=== PATIENT | female | born 1985 | race Caucasian/White ===

== ENCOUNTER 2021-08-26 13:36 | Inpatient (IN) ==
[2021-08-26] MEDS ORDERED: HYDROmorphone INJ 1 MG/ML SYRINGE IV STA (17:08)
[2021-08-26] MEDS ORDERED: ONDANSETRON INJ 2 MG/ML 2 ML VIAL IV STA (17:08)
--- NOTE | 2021-08-26 17:13 | Emergency Department Note ---
History of Present Illness General Chief Complaint: Back Injury/Pain Stated Complaint: LOW BACK,LEG WEAKNESS,NUMBNESS PAIN Time Seen by Provider: 08/26/21 17:00 History of Present Illness Provider Complaint: back pain Onset (ago): month(s) 3 Duration: progressively worsening Similar Symptoms Previously: No Location: lumbar spine Quality: + sharp Radiation: right leg Severity: severe Maximum Pain Intensity: 9 Current Pain Intensity: 9 Relieved By: + immobilization Exacerbated By: + movement Context: no trauma or no IV drug use Associated symptoms: + numbness, + increased urinary urgency, + increased urinary frequency, + a change in bowel habits and + parasthesias (Saddle) Patient is known to Dr. Fitzgerald who instructed her to come to the emergency department. Home Medications Medication Instructions Recorded Confirmed Type diphenhydramine HCl 25 mg tablet 25 mg PO Q6H PRN 03/01/20 08/26/21 History (Benadryl Allergy) lisdexamfetamine 70 mg capsule 70 mg PO DAILY 03/01/20 08/26/21 History (Vyvanse) lorazepam 0.5 mg tablet 0.5 mg PO Q6H PRN 03/01/20 08/26/21 History venlafaxine 150 mg 150 mg PO DAILY 03/01/20 08/26/21 History capsule,extended release 24 hr atenolol 25 mg tablet 25 mg PO DAILY 08/26/21 08/26/21 History cholecalciferol (vitamin D3) 125 125 mcg PO DAILY 08/26/21 08/26/21 History mcg (5,000 unit) tablet (Vitamin D3) cyanocobalamin (vitamin B-12) 1,000 mcg PO DAILY 08/26/21 08/26/21 History 1,000 mcg tablet (Vitamin B-12) epinephrine 0.3 mg/0.3 mL 0.3 mg IM Q4H PRN 08/26/21 08/26/21 History injection, auto-injector fluticasone propionate 50 2 spray INTRANASAL DAILY 08/26/21 08/26/21 History mcg/actuation nasal spray,suspension hydrochlorothiazide 12.5 mg capsule 12.5 mg PO DAILY 08/26/21 08/26/21 History losartan 50 mg tablet 50 mg PO BID 08/26/21 08/26/21 History meloxicam 15 mg tablet 15 mg PO DAILY 08/26/21 08/26/21 History multivitamin 1 tab PO DAILY 08/26/21 08/26/21 History norethindrone (contraceptive) 0.35 0.35 mg PO DAILY 08/26/21 08/26/21 History mg tablet thiamine HCl (vitamin B1) 50 mg 50 mg PO DAILY 08/26/21 08/26/21 History tablet (Vitamin B-1) venlafaxine 75 mg capsule,extended 75 mg PO DAILY 08/26/21 08/26/21 History release 24 hr Allergies Allergy/AdvReac Type Severity Reaction Status Date / Time bee venom protein (honey bee) Allergy Anaphylaxis Verified 08/26/21 18:13 latex Allergy Hives Verified 08/26/21 18:13 Past Med/Surg History Medical History Migraines No pertinent family history Surgical History No pertinent past surgical history Social History Smoking Status: Never smoker Preferred Language: Belarusian Feels Safe at Home: Yes Review of Systems A total of 10 systems reviewed and were otherwise negative Physical Exam Vital Signs Vital Signs - 24 hr 08/26/21 14:07 08/26/21 17:38 08/26/21 19:47 Temperature 36.4 C L Temperature Source Temporal Artery Scan Pulse Rate 109 H Pulse Rate [Right Finger] 82 83 Pulse Rhythm [Right Finger] Regular Regular Pulse Strength [Right Finger] Normal Normal Respiratory Rate 20 18 16 Respiratory Effort / Characteristics Non-Labored Spontaneous Non-Labored Non-Labored Respiratory Depth Normal Normal Normal Respiratory Pattern Regular Regular Regular Blood Pressure 145/84 H Blood Pressure [Right Arm] 133/76 144/80 H Blood Pressure Mean 104 Blood Pressure Mean [Right Arm] 95 101 Blood Pressure Position [Right Arm] Lying Lying Pulse Oximetry 98 99 99 Oxygen Delivery Method Room Air Room Air Room Air Sepsis Recent Fever Within 48 Hours No Sepsis New/Unexplained Change in Mental Status No Sepsis Action Taken by Nursing No Action Required Physical Exam GENERAL: She is oriented to person, place, and time. She appears well-developed and well-nourished. She does not appear distressed. HENT: Exam performed. -Head: Normocephalic and atraumatic. -Right Ear: External ear normal. No mastoid tenderness. -Left Ear: External ear normal. No mastoid tenderness. -Mouth/Throat: The oropharynx is clear and moist. No trismus in the jaw. No dental abscesses or uvula swelling. No oropharyngeal exudate or tonsillar abscesses. EYES: Conjunctivae and EOM are normal. Pupils are equal, round, and reactive to light. Right eye exhibits no discharge. Left eye exhibits no discharge. No scleral icterus. NECK: Normal range of motion. Neck supple. No JVD present. No spinous process tenderness present. No carotid bruit present. No rigidity. No tracheal deviation and normal range of motion present. No Brudzinski's sign and no Kernig's sign noted. CV: Normal rate, regular rhythm, normal heart sounds and intact distal pulses. There is no peripheral edema. Palpable radial pulses bue. PULM/CHEST: Effort normal and breath sounds normal. No respiratory distress. No stridor. She has no wheezes. She has no rales. -Chest Wall: She exhibits no tenderness. ABD: The abdomen is soft and obese Bowel sounds are normal. She has no distension. No mass is present. There is no tenderness. There is no rebound, no guarding, no Todd's sign and no tenderness at McBurney's point. Rovsig negative MUSC/SKEL: No pain on palpation of the C or T-spine. Pain on palpation L-spine. NEURO: She is alert and oriented to person, place, and time. She has normal strength. No cranial nerve deficit or sensory deficit. Coordination and gait normal. GCS eye subscore is 4. GCS verbal subscore is 5. GCS motor subscore is 6. Cerebellar tests wnl. Saddle anesthesias/paresthesias present. SKIN: Skin is warm and dry. She is not diaphoretic. PSYCH: She has a normal mood and affect. Behavior is normal. Judgment and thought content normal. Course Course 1700: The patient was evaluated in room B5. A complete history and physical exam was performed Cardiac monitoring: An order was placed for continuous cardiac monitoring. The monitor shows a rate of 100 with sinus rhythm 1743: Vital signs stable. Discussed the case with Dr. Fitzgerald, [id number], patient's known surgeon. He states he agrees with the work-up initiated and with the MRI. He states either way the patient will most likely need to be admitted and he will admit the patient to his service. Dr. Fitzgerald states he will review the MRI after the images are completed and he states to admit the patient under his service. Patient is in agreement at this time. Administered Medications Sodium Chloride (Nss 1000ml) 1,000 mls @ 80 mls/hr IV .[id number] CARL Stop: 09/25/21 17:14 Last Admin: 08/26/21 17:41 Dose: 80 mls/hr Documented by: [id number] Discontinued Medications Hydromorphone HCl (Hydromorphone Inj 1 Mg/Ml Syringe) 1 mg IV NOW STA Stop: 08/26/21 17:09 Last Admin: 08/26/21 17:42 Dose: 1 mg Documented by: [id number] Hydromorphone HCl (Hydromorphone Inj 0.5 Mg/0.5 Ml Syr) 0.5 mg IV NOW STA Stop: 08/26/21 20:22 Last Admin: 08/26/21 20:27 Dose: 0.5 mg Documented by: [id number] Ondansetron HCl (Ondansetron Inj 2 Mg/Ml 2 Ml Vial) 4 mg IV NOW STA Stop: 08/26/21 17:09 Last Admin: 08/26/21 17:40 Dose: 4 mg Documented by: [id number] Medical Decision Making Laboratory Data Result diagrams: 08/26/21 17:39 08/26/21 17:39 Lab Results 08/26/21 08/26/21 08/26/21 Range/Units 17:39 17:39 17:39 WBC 14.55 H (4.8-10.8) K/uL RBC 4.57 (4.2-5.4) M/uL Hgb 14.0 (12.0-16.0) g/dL Hct 42.1 (37-47) % MCV 92.1 (80-100) fL MCH 30.6 (25-34) pg MCHC 33.3 (32-36) g/dL RDW Std Deviation 43.6 (36.4-46.3) fL RDW Coeff of Clint 13.0 (11.5-14.5) % Plt Count 304 (130-400) K/uL MPV 11.0 H (7.4-10.4) fL Immature Gran % (Auto) 0.5 % Neut % (Auto) 69.3 % Lymph % (Auto) 20.1 % Treasure % (Auto) 7.7 % Eos % (Auto) 2.1 % Baso % (Auto) 0.3 % Neut # (Auto) 10.10 H (1.4-6.5) K/uL Lymph # (Auto) 2.92 (1.2-3.4) K/uL Treasure # (Auto) 1.12 H (0.11-0.59) K/uL Eos # (Auto) 0.30 (0-0.5) K/uL Baso # (Auto) 0.04 (0-0.2) K/uL Immature Gran # (Auto) 0.07 H (0.00-0.02) K/uL Sodium 141 (136-145) mmol/L Potassium 3.6 (3.5-5.1) mmol/L Chloride 109 H (98-107) mmol/L Carbon Dioxide 24 (21-32) mmol/L Anion Gap 8.0 (3-11) BUN 20 H (7-18) mg/dl Creatinine 0.70 (0.6-1.2) mg/dl Est Cr Clr Drug Dosing 170.3 ml/min Est GFR ( Amer) 131.0 ml/min Est GFR (Non-Af Amer) 113.0 ml/min BUN/Creatinine Ratio 29.4 H (10-20) Glucose 75 (70-99) mg/dl Calcium 8.9 (8.5-10.1) mg/dl Urine Color Dark Yellow Urine Appearance Clear (Clear) Urine pH 5.5 (4.5-7.5) Ur Specific Orgas 1.026 (1.000-1.030) Urine Protein Negative (Negative) Urine Glucose (UA) Negative (Negative) Urine Ketones Trace H (Negative) Urine Blood Trace H (Negative) Urine Nitrite Negative (Negative) Urine Bilirubin Negative (Negative) Urine Urobilinogen Negative (Negative) Ur Leukocyte Esterase Negative (Negative) Urine WBC (Auto) 1-5 (0-5) /hpf Urine RBC (Auto) 5-10 H (0-4) /hpf U Hyaline Cast (Auto) 1-5 (0-5) /lpf U Epithel Cells (Auto) >30 H (0-5) /lpf Urine Bacteria (Auto) Negative (Negative) POC Ur Test (NEG) SARS-CoV-2, RNA, NAAT (NEGATIVE) 08/26/21 08/26/21 Range/Units 17:39 Unknown WBC (4.8-10.8) K/uL RBC (4.2-5.4) M/uL Hgb (12.0-16.0) g/dL Hct (37-47) % MCV (80-100) fL MCH (25-34) pg MCHC (32-36) g/dL RDW Std Deviation (36.4-46.3) fL RDW Coeff of Clint (11.5-14.5) % Plt Count (130-400) K/uL MPV (7.4-10.4) fL Immature Gran % (Auto) % Neut % (Auto) % Lymph % (Auto) % Treasure % (Auto) % Eos % (Auto) % Baso % (Auto) % Neut # (Auto) (1.4-6.5) K/uL Lymph # (Auto) (1.2-3.4) K/uL Treasure # (Auto) (0.11-0.59) K/uL Eos # (Auto) (0-0.5) K/uL Baso # (Auto) (0-0.2) K/uL Immature Gran # (Auto) (0.00-0.02) K/uL Sodium (136-145) mmol/L Potassium (3.5-5.1) mmol/L Chloride (98-107) mmol/L Carbon Dioxide (21-32) mmol/L Anion Gap (3-11) BUN (7-18) mg/dl Creatinine (0.6-1.2) mg/dl Est Cr Clr Drug Dosing ml/min Est GFR ( Amer) ml/min Est GFR (Non-Af Amer) ml/min BUN/Creatinine Ratio (10-20) Glucose (70-99) mg/dl Calcium (8.5-10.1) mg/dl Urine Color Urine Appearance (Clear) Urine pH (4.5-7.5) Ur Specific Orgas (1.000-1.030) Urine Protein (Negative) Urine Glucose (UA) (Negative) Urine Ketones (Negative) Urine Blood (Negative) Urine Nitrite (Negative) Urine Bilirubin (Negative) Urine Urobilinogen (Negative) Ur Leukocyte Esterase (Negative) Urine WBC (Auto) (0-5) /hpf Urine RBC (Auto) (0-4) /hpf U Hyaline Cast (Auto) (0-5) /lpf U Epithel Cells (Auto) (0-5) /lpf Urine Bacteria (Auto) (Negative) POC Ur Test NEG (NEG) SARS-CoV-2, RNA, NAAT NEGATIVE (NEGATIVE) Imaging Data Radiologist's Impression: Lumbar Spine MRI 08/26/21 17:08 MRI OF THE LUMBAR SPINE WITHOUT IV CONTRAST CLINICAL HISTORY: Low back pain. Saddle anesthesia. COMPARISON STUDY: No priors. TECHNIQUE: MRI of the lumbar spine is performed utilizing various T1 and T2- weighted sequences in the axial and sagittal planes. IV contrast was not adm inistered for this examination. FINDINGS: Lumbar spine: Vertebral body height and alignment are maintained throughout the lumbar spine. Normal marrow signal intensity is preserved throughout the v isualized bony structures. The transverse and spinous processes appear intact. There is no evidence of spondylolysis. No destructive bony lesion is seen. Intervertebral discs: There is mild degenerative disc desiccation in the lower lumbar spine. The disc spaces are maintained. Spinal cord: The visualized spinal cord is normal in morphology and signal intensity. The conus medullaris terminates at the L1-L2 interspace. The nerve roots of the cauda equina are normal in morphology. L1-L2: Unremarkable. L2-L3: Unremarkable. L3-L4: Unremarkable. L4-L5: Unremarkable. L5-S1: There is a posterior disc protrusion with annular fissure. This abuts the transiting nerve roots. No significant acquired compromise of the central canal is identified. There is minimal bilateral subarticular stenosis. In conjunction with facet arthropathy, there is minimal bilateral neural foraminal narrowing. Sacrum: The visualized sacrum is normal in morphology and signal intensity. Soft tissues: The paraspinous soft tissues are normal in appearance. The visualized retroperitoneal structures are grossly unremarkable but incompletely evaluated. IMPRESSION: 1. Posterior disc protrusion at L5-S1 as above. 2. There is no significant acquired compromise of the central canal. 3. No destructive bony process is identified. Dictated: 08/26/2021 7:46 PM Transcribed: 08/26/2021 8:05 PM Jennifer [id number] [email or web address] Electronically signed by: Johnathan Kaur M.D. 08/26/2021 8:11 PM MDM Narrative 1700: The patient was evaluated in room B5. A complete history and physical exam was performed Cardiac monitoring: An order was placed for continuous cardiac monitoring. The monitor shows a rate of 100 with sinus rhythm 1743: Vital signs stable. Discussed the case with Dr. Fitzgerald, [id number], patient's known surgeon. He states he agrees with the work-up initiated and with the MRI. He states either way the patient will most likely need to be admitted and he will admit the patient to his service. Dr. Fitzgerald states he will review the MRI after the images are completed and he states to admit the patient under his service. Patient is in agreement at this time. Impression & Plan Lumbar radiculopathy Discharge Plan Visit Data Chief Complaint: Back Injury/Pain Stated Complaint: LOW BACK,LEG WEAKNESS,NUMBNESS PAIN ED Provider: Sathish Whitlock Discharge Problem: Lumbar radiculopathy Patient Disposition: Being Evaluated by Surgeon Forms Stand Alone Forms: [facility] Prescriptions Prescriptions: No Action venlafaxine 150 mg capsule,extended release 24hr 150 mg PO DAILY RF: 0 lorazepam 0.5 mg tablet 0.5 mg PO Q6H PRN (Reason: Anxiety) RF: 0 diphenhydramine HCl [Benadryl Allergy] 25 mg Tablet 25 mg PO Q6H PRN (Reason: Allergy Symptoms) RF: 0 Vyvanse 70 mg capsule 70 mg PO DAILY RF: 0 multivitamin Tablet 1 tab PO DAILY RF: 0 losartan 50 mg tablet 50 mg PO BID RF: 0 venlafaxine 75 mg capsule,extended release 24hr 75 mg PO DAILY RF: 0 meloxicam 15 mg tablet 15 mg PO DAILY RF: 0 atenolol 25 mg tablet 25 mg PO DAILY RF: 0 cyanocobalamin (vitamin B-12) [Vitamin B-12] 1,000 mcg Tablet 1,000 mcg PO DAILY RF: 0 hydrochlorothiazide 12.5 mg capsule 12.5 mg PO DAILY RF: 0 epinephrine [Epi E-Z Pen] 0.3 mg/0.3 mL Auto-Injector 0.3 mg IM Q4H PRN (Reason: Allergic Reaction) RF: 0 norethindrone (contraceptive) 0.35 mg tablet 0.35 mg PO DAILY RF: 0 fluticasone propionate 50 mcg/actuation spray,suspension 2 spray INTRANASAL DAILY RF: 0 thiamine HCl (vitamin B1) [Vitamin B-1] 50 mg Tablet 50 mg PO DAILY RF: 0 cholecalciferol (vitamin D3) [Vitamin D3] 125 mcg (5,000 unit) Tablet 125 mcg PO DAILY RF: 0 Referrals Referrals: Luis Kan MD [Primary Care Provider] -
[2021-08-26] MEDS ORDERED: SODIUM CHLORIDE 0.9% 1000ML 1,000 ML IV SCH (17:15)
[2021-08-26 17:58] LABS: Basophils # (auto) 0.04 K/uL (0-0.2); Basophils % (auto) 0.3 %; Eosinophils % (auto) 2.1 %; Hematocrit (blood only) 42.1 % (37-47); Immature Granulocytes # (auto) 0.07 K/uL (0.00-0.02); Immature Granulocytes % (auto) 0.5 %; Lymphocytes # (auto) 2.92 K/uL (1.2-3.4); Lymphocytes % (auto) 20.1 %; Mean Corpuscular Hemoglobin 30.6 pg (25-34); Mean Corpuscular Hgb Conc 33.3 g/dL (32-36); Mean Corpuscular Volume 92.1 fL (80-100); Monocytes # (auto) 1.12 K/uL (0.11-0.59); Monocytes % (auto) 7.7 %; Neutrophils % (auto) 69.3 %; Platelet Count 304 K/uL (130-400); RDW Standard Deviation 43.6 fL (36.4-46.3); Red Blood Count 4.57 M/uL (4.2-5.4); White Blood Count 14.55 K/uL (4.8-10.8)
[2021-08-26 18:10] LABS: Appearance Urine Clear (Clear); Bacteria Urine Automated Negative (Negative); Bilirubin Urine Negative (Negative); Blood Urine Trace (Negative); Color Urine Dark Yellow; Epithelial Cell Urine Auto >30 /lpf (0-5); Glucose Urine UA Negative (Negative); Ketones Urine Trace (Negative); Leukocyte Esterase Urine Negative (Negative); Nitrite Urine Negative (Negative); Protein Urine Negative (Negative); Specific Gravity Urine 1.026 (1.000-1.030); Urobilinogen Urine Negative (Negative); pH Urine 5.5 (4.5-7.5)
[2021-08-26 18:13] LABS: BUN Creatinine Ratio 29.4 (10-20); Calcium 8.9 mg/dl (8.5-10.1); Creatinine Clr Calc Pharmacy 170.3 ml/min; Potassium 3.6 mmol/L (3.5-5.1)
--- NOTE | 2021-08-26 20:13 | Magnetic Resonance Report ---
MRI OF THE LUMBAR SPINE WITHOUT IV CONTRAST CLINICAL HISTORY: Low back pain. Saddle anesthesia. COMPARISON STUDY: No priors. TECHNIQUE: MRI of the lumbar spine is performed utilizing various T1 and T2-weighted sequences in the axial and sagittal planes. IV contrast was not administered for this examination. FINDINGS: Lumbar spine: Vertebral body height and alignment are maintained throughout the lumbar spine. Normal marrow signal intensity is preserved throughout the visualized bony structures. The transverse and sp inous processes appear intact. There is no evidence of spondylolysis. No destructive bony lesion is s een. Intervertebral discs: There is mild degenerative disc desiccation in the lower lumbar spine. The disc spaces are maintained. Spinal cord: The visualized spinal cord is normal in morphology and signal intensity. The conus medul aurora terminates at the L1-L2 interspace. The nerve roots of the cauda equina are normal in morpholog y. L1-L2: Unremarkable. L2-L3: Unremarkable. L3-L4: Unremarkable. L4-L5: Unremarkable. L5-S1: There is a posterior disc protrusion with annular fissure. This abuts the transiting nerve fanny ts. No significant acquired compromise of the central canal is identified. There is minimal bilateral subarticular stenosis. In conjunction with facet arthropathy, there is minimal bilateral neural fora suzie narrowing. Sacrum: The visualized sacrum is normal in morphology and signal intensity. Soft tissues: The paraspinous soft tissues are normal in appearance. The visualized retroperitoneal s tructures are grossly unremarkable but incompletely evaluated. IMPRESSION: 1. Posterior disc protrusion at L5-S1 as above. 2. There is no significant acquired compromise of the central canal. 3. No destructive bony process is identified. Dictated: 08/26/2021 7:46 PM Transcribed: 08/26/2021 8:05 PM Jennifer [id number] [email or web address] Electronically signed by: Johnathan Kaur M.D. 08/26/2021 8:11 PM
[2021-08-26] MEDS ORDERED: HYDROmorphone INJ 0.5 MG/0.5 ML SYR IV STA (20:21)
[2021-08-27] MEDS ORDERED: HYDROmorphone INJ 0.5 MG/0.5 ML SYR IV PRN (02:07)
[2021-08-27] MEDS ORDERED: EPINEPHrine INJ 1 MG/ML AMP IM PRN (02:07)
[2021-08-27] MEDS ORDERED: hydrOXYzine HCl 25 MG TAB PO PRN (02:07)
[2021-08-27] MEDS ORDERED: ONDANSETRON INJ 2 MG/ML 2 ML VIAL IV PRN (02:07)
[2021-08-27] MEDS ORDERED: LORazepam 0.5 MG/1 ML VIAL IV PRN (02:07)
[2021-08-27] MEDS ORDERED: NALOXONE HCL 0.4 MG/1 ML VIAL/CARP IV PRN (02:07)
[2021-08-27] MEDS ORDERED: METOCLOPRAMIDE HCL INJ 5 MG/ML 2 ML VIAL IV PRN (02:07)
[2021-08-27] MEDS ORDERED: ALUMINUM/MAGNESIUM SUSP 30 ML UDC PO PRN (02:07)
[2021-08-27] MEDS ORDERED: ONDANSETRON 4 MG OD TAB PO PRN (02:07)
[2021-08-27] MEDS ORDERED: MAGNESIUM HYDROXIDE SUSP 30 ML UDC PO PRN (02:07)
[2021-08-27] MEDS ORDERED: ACETAMINOPHEN 500 MG TAB PO PRN (02:07)
[2021-08-27] MEDS ORDERED: traMADol HCL 50 MG TABLET PO PRN (02:07)
[2021-08-27] MEDS ORDERED: SOD PHOSPHATE/SOD BIPHOSPHATE ENEMA 132 ML BTL PR PRN (02:07)
[2021-08-27] MEDS ORDERED: PROMETHAZINE HCL 12.5 MG in SODIUM CHLORIDE 0.9% 50 ML IV PRN (02:07)
[2021-08-27] MEDS ORDERED: LORazepam 0.5 MG TAB PO PRN (02:07)
[2021-08-27] MEDS ORDERED: diphenhydrAMINE Capsule 25 MG CAP PO PRN ×2 (02:07)
[2021-08-27] MEDS ORDERED: ACETAMINOPHEN 1,000 MG/100 ML VIAL IV PRN (02:07)
[2021-08-27] MEDS: LACTATED RINGER'S 1,000 ML IV SCH ×2 (02:29→16:14)
[2021-08-27] MEDS: HYDROmorphone INJ 1 MG/ML SYRINGE IV PRN ×3 (02:31→23:14)
[2021-08-27] MEDS: LOSARTAN POTASSIUM 50 MG TAB PO SCH ×2 (02:49→10:49)
[2021-08-27 03:02] LABS: Albumin Level 2.9 gm/dl (3.4-5.0); Calcium 8.3 mg/dl (8.5-10.1); Creatinine Clr Calc Pharmacy 152.8 ml/min; Est GFR (Non-African American) 99.2 ml/min; Potassium 3.2 mmol/L (3.5-5.1)
[2021-08-27 03:05] LABS: Albumin Globulin Ratio 0.9 (0.9-2); Bilirubin,Total 0.3 mg/dl (0.2-1); Globulin 3.2 gm/dl (2.5-4.0); Total Protein 6.1 gm/dl (6.4-8.2)
[2021-08-27] MEDS: THIAMINE HCL 50 MG TABLET PO SCH (08:00)
[2021-08-27] MEDS: ATENOLOL 25 MG TABLET PO SCH (08:00)
[2021-08-27] MEDS: CYANOCOBALAMIN 500 MCG TABLET (VITAMIN B-12) PO SCH (08:00)
[2021-08-27] MEDS: CHOLECALCIFEROL 1,000 UNITS 25 MCG TAB PO SCH (08:00)
[2021-08-27] MEDS: VENLAFAXINE HCL XR 150 MG CAPXR PO SCH (08:00)
[2021-08-27] MEDS: VENLAFAXINE HCL XR 75 MG CAPXR PO SCH (08:00)
[2021-08-27] MEDS: MULTIVITAMIN TAB PO SCH (08:00)
--- NOTE | 2021-08-27 08:31 | History & Physical Report ---
Date of Service August 27, 2021 Assessment & Plan (1) Lumbar disc herniation with radiculopathy: Plan: Assessment lumbar disc herniation with lumbar retrolisthesis L5-S1 with right- sided radiculopathy and progressive neuro deficit, perineal numbness and urinary retention. Plan at this time she is failed extensive course of nonoperative care has progressive deficit now describing urinary retention and perineal numbness and recommending urgent lumbar decompression fusion L5-S1. Updated MRI does demonstrate continued large posterior disc protrusion L5-S1 with encroachment the traversing S1 nerve root. She also demonstrates displaced collapse and retrolisthesis at this level undoubtedly contributing to neural compression when she stands and begins any sort of activity. To adequately address this would require wide decompression complete discectomy and st abilization by way of fusion to avoid continued nerve compression. Risk benefits pros cons alternatives were outlined in detail. Admission and Anticipated Discharge Date Admission Date: August 26, 2021 History of Present Illness Chief Complaint: Right leg pain with weakness Primary Care Provider: Luis Kan MD This is a 36-year-old female known to me the presents with a longstanding history of worsening lumbosacral back pain with radiation down the right leg. Describes pain in right buttock posterior thigh below the knee into the calf heel and into the lesser toe. Is been progressive over the past year. She is undergone a recent course of lumbar epidural injections without any significant improvement in her pain. Is undergone 2 courses of oral steroids without improvement. Is undergone extensive course of physical therapy as well as technical healthcare consultant without any improvement. She states it markedly limits her quality of life. She cannot bend or twist without reproduction of pain. Walking is limited. She notes weakness in the right lower extremity. It does awaken her from sleep. Most urgently she is noting perineal numbness and urinary retention. She did have a fall approximately 3 months ago. She has tried various oral pain medications but find that there not effective in relieving any component of her pain. Allergies Allergy/AdvReac Type Severity Reaction Status Date / Time bee venom protein (honey bee) Allergy Anaphylaxis Verified 08/26/21 18:13 latex Allergy Hives Verified 08/26/21 18:13 Home Medications Medication Instructions Recorded Confirmed Type diphenhydramine HCl 25 mg tablet 25 mg PO Q6H PRN 03/01/20 08/26/21 History (Benadryl Allergy) lisdexamfetamine 70 mg capsule 70 mg PO DAILY 03/01/20 08/26/21 History (Vyvanse) lorazepam 0.5 mg tablet 0.5 mg PO Q6H PRN 03/01/20 08/26/21 History venlafaxine 150 mg 150 mg PO DAILY 03/01/20 08/26/21 History capsule,extended release 24 hr atenolol 25 mg tablet 25 mg PO DAILY 08/26/21 08/26/21 History cholecalciferol (vitamin D3) 125 125 mcg PO DAILY 08/26/21 08/26/21 History mcg (5,000 unit) tablet (Vitamin D3) cyanocobalamin (vitamin B-12) 1,000 mcg PO DAILY 08/26/21 08/26/21 History 1,000 mcg tablet (Vitamin B-12) epinephrine 0.3 mg/0.3 mL 0.3 mg IM Q4H PRN 08/26/21 08/26/21 History injection, auto-injector fluticasone propionate 50 2 spray INTRANASAL DAILY 08/26/21 08/26/21 History mcg/actuation nasal spray,suspension hydrochlorothiazide 12.5 mg capsule 12.5 mg PO DAILY 08/26/21 08/26/21 History losartan 50 mg tablet 50 mg PO BID 08/26/21 08/26/21 History meloxicam 15 mg tablet 15 mg PO DAILY 08/26/21 08/26/21 History multivitamin 1 tab PO DAILY 08/26/21 08/26/21 History norethindrone (contraceptive) 0.35 0.35 mg PO DAILY 08/26/21 08/26/21 History mg tablet thiamine HCl (vitamin B1) 50 mg 50 mg PO DAILY 08/26/21 08/26/21 History tablet (Vitamin B-1) venlafaxine 75 mg capsule,extended 75 mg PO DAILY 08/26/21 08/26/21 History release 24 hr Past Med/Surg History Medical History Migraines No pertinent family history Surgical History No pertinent past surgical history Social History Smoking Status: Never smoker Hx Alcohol Use: No Hx Substance Use: No Preferred Language: Turkmen Communication Ability: Effective Pumper Helper Required: No Beliefs That Will Affect Care: None Current Living Situation: Spouse Other Information That Helps Us Care for You: No Feels Safe at Home: Yes Safety Concerns: Feels Safe At This Time Assistive Devices: None Physical Exam Physical Exam: On physical exam she is no distress. She is significant tension signs with straight leg raising on the right negative on the left. She has a 4-/5 right plantar flexion to 5/ 5 on the left. Dorsiflexion extensor hallucis longus is a 4+/5 on the right 5 or 5 on the left. She has sensory deficits to sensation light touch to the right lower extremity compared to the left. Deep tendon reflexes diminished. Results & Data ([facility]) Vital Signs (Past 12 Hours) Vital Signs Temp Pulse Pulse Resp BP BP Pulse Ox 08/27/21 07:56 36.9 C 80 16 116/60 99 08/27/21 01:50 36.9 C 80 16 142/79 H 98 08/27/21 00:00 76 15 96 08/26/21 23:50 75 14 97 08/26/21 23:40 70 16 97 08/26/21 23:30 72 14 97 08/26/21 23:20 76 16 97 08/26/21 23:10 88 20 97 08/26/21 23:00 71 16 08/26/21 22:50 75 14 99 08/26/21 22:40 79 21 100 08/26/21 22:30 71 21 08/26/21 22:20 76 18 100 08/26/21 22:10 16 08/26/21 22:00 74 19 08/26/21 21:50 77 19 99 08/26/21 21:40 82 16 99 08/26/21 21:30 84 21 98 08/26/21 21:20 85 19 99 08/26/21 21:10 85 14 100 08/26/21 21:00 76 80 22 134/79 99 08/26/21 20:50 78 19 100 08/26/21 20:40 74 16 100 08/26/21 20:30 75 15 99 Code Status & VTE Plan VTE Prophylaxis Plan VTE Prophylaxis will be ordered: Yes
[2021-08-27] MEDS ORDERED: hydroCHLOROthiazide 25 MG TAB PO SCH (09:00)
[2021-08-27] MEDS: oxyCODONE HCL IR 5 MG TAB (IMMEDIATE RELEASE) PO PRN ×2 (14:55→19:54)
[2021-08-27] MEDS ORDERED: POTASSIUM CHLORIDE CRTAB 20 MEQ TABCR PO ONE (15:47)
--- NOTE | 2021-08-27 17:20 | Hospitalist Consultation ---
Date of Consultation August 27, 2021 Assessment & Plan (1) Lumbar disc herniation with radiculopathy: - Patient presented with intractable low back pain. MRI showed disc protrusion at L5-S1. Spine orthopedics planning on surgical intervention tomorrow. - activity and wound care orders as per ortho - pain control with bowel regimen - PT/OT - monitor H/H for acute blood loss anemia and transfuse blood products PRN (2) Hypertension: -BP controlled, hold losartan and HCTZ preoperatively and pending a.m. labs (3) KEYSHA on CPAP: -CPAP as per home settings (4) Anxiety: (5) ADHD: -Stable, continue home medications (6) DVT prophylaxis: -TEDs/SCDs as per spine Ortho Thank you for this consultation. We will follow the patient with you during their hospital stay. You can reach a member of the [facility] Hospitalist Team 20/04 via the [facility] in [employer] [facility]. Supervising Physician Co-Signing Physician Notes Pt seen and examined by me, care coordinated with [place] MERINO, pls refer to her note above for further detail. 36 yo F w/ KEYSHA on CPAP, HTN, depression with anxiety, ADHD, hepatic steatosis, who presents w/ intractable back pain. Pt fell in the bathtub about 3 months ago. She has received 2 steroid injections, completed courses of oral steroids, and participated in therapy without any improvement in her symptoms.Lumbar spine MRI shows Posterior disc protrusion at L5-S1. Spine orthopedics has evaluated the patient and is planning on surgical intervention tomorrow. Pain is located on the right side of her low back and radiates into her buttocks and down into her right leg, + right leg numbness. Pt feels she is not emptying her bladder completely. Denies bowel and bladder incontinence. Pt is laying in bed in NAD. She is alert oriented and answering questions appropriately. Lungs CTAB. Heart sounds regular. Abdomen is soft, nontender, nondistended, obese. + straight leg test. Moves extremities. Skin is warm, dry. Prior to her accident pt reports to be very active, never having any chest pain or shortness of breath w/ activity. Nonsmoker. Low risk for upcoming surgery. Will bladder scan and monitor urine output given pt's feeling of not fully emptying bladder. Sherry Logan MD History of Present Illness Reason for Consultation: Medical management Requesting Physician: Dr. Fitzgerald Attending Physician: Dr. Logan History of Present Illness 36-year-old female with PMH KEYSHA on CPAP, HTN, depression with anxiety, ADHD, hepatic steatosis, and other problems listed below who presents to the ED for evaluation of intractable back pain. Patient reports she fell in the bathtub about 3 months ago. She has received 2 steroid injections, completed courses of oral steroids, and participated in therapy without any improvement in her symptoms. In the ED, lumbar spine MRI shows Posterior disc protrusion at L5-S1. Spine orthopedics has evaluated the patient and is planning on surgical intervention tomorrow. Patient reports pain is located on the right side of her low back and radiates into her buttocks and down into her right leg. She reports associated right leg numbness, tingling, weakness at times. Over the past couple of days, she feels as though she is not emptying her bladder completely. Denies bowel and bladder incontinence. No other recent illnesses, fevers, chills. Denies chest pain and shortness of breath. No abdominal pain or nausea. At the time my exam, patient is resting in bed and reports her pain is currently well controlled. Allergies Allergy/AdvReac Type Severity Reaction Status Date / Time bee venom protein (honey bee) Allergy Anaphylaxis Verified 08/26/21 18:13 latex Allergy Hives Verified 08/26/21 18:13 Home Medications Medication Instructions Recorded Confirmed Type diphenhydramine HCl 25 mg tablet 25 mg PO Q6H PRN 03/01/20 08/26/21 History (Benadryl Allergy) lisdexamfetamine 70 mg capsule 70 mg PO DAILY 03/01/20 08/26/21 History (Vyvanse) lorazepam 0.5 mg tablet 0.5 mg PO Q6H PRN 03/01/20 08/26/21 History venlafaxine 150 mg 150 mg PO DAILY 03/01/20 08/26/21 History capsule,extended release 24 hr atenolol 25 mg tablet 25 mg PO DAILY 08/26/21 08/26/21 History cholecalciferol (vitamin D3) 125 125 mcg PO DAILY 08/26/21 08/26/21 History mcg (5,000 unit) tablet (Vitamin D3) cyanocobalamin (vitamin B-12) 1,000 mcg PO DAILY 08/26/21 08/26/21 History 1,000 mcg tablet (Vitamin B-12) epinephrine 0.3 mg/0.3 mL 0.3 mg IM Q4H PRN 08/26/21 08/26/21 History injection, auto-injector fluticasone propionate 50 2 spray INTRANASAL DAILY 08/26/21 08/26/21 History mcg/actuation nasal spray,suspension hydrochlorothiazide 12.5 mg capsule 12.5 mg PO DAILY 08/26/21 08/26/21 History losartan 50 mg tablet 50 mg PO BID 08/26/21 08/26/21 History meloxicam 15 mg tablet 15 mg PO DAILY 08/26/21 08/26/21 History multivitamin 1 tab PO DAILY 08/26/21 08/26/21 History norethindrone (contraceptive) 0.35 0.35 mg PO DAILY 08/26/21 08/26/21 History mg tablet thiamine HCl (vitamin B1) 50 mg 50 mg PO DAILY 08/26/21 08/26/21 History tablet (Vitamin B-1) venlafaxine 75 mg capsule,extended 75 mg PO DAILY 08/26/21 08/26/21 History release 24 hr oxycodone 5 mg tablet 5 mg PO Q6H PRN #30 tab 08/29/21 Rx tramadol 50 mg tablet 50 mg PO Q6H PRN #30 tab 08/29/21 Rx Patient History Medical History ADHD Allergic rhinitis Anxiety Hepatic steatosis Hypertension Migraines KEYSHA on CPAP Surgical History H/O adenoidectomy H/O oophorectomy H/O sinus surgery Family History Grandfather Diabetes Social History Smoking Status: Never smoker Hx Alcohol Use: No Hx Substance Use: No Preferred Language: Chadian Communication Ability: Effective Satellite Tv Installer Required: No Beliefs That Will Affect Care: None marital status: Current Living Situation: Spouse How many Children do You have: 1 Feels Safe at Home: Yes Assistive Devices: None Review of Systems Review of Systems: ROS per HPI, all other systems reviewed and negative Physical Exam Constitutional: WD/WN, vitals as above + obese Eyes: PERRL, conjunctivae normal, anicteric sclerae ENMT: external ear and nose normal, oropharynx normal Respiratory: normal respiratory effort, lungs clear to auscultation Cardiovascular: Rate/Rhythm: regular rate and regular rhythm Vessels: normal peripheral pulses Extremities: no edema Gastrointestinal (Abdomen): normal bowel sounds, soft, nontender, no hepatosplenomegaly Musculoskeletal: no cyanosis or clubbing, extremities motor strength 5/5 Spine: + straight leg raise positive Tenderness in right low back Skin: no rashes, warm and dry Neurologic: PERRL, EOMI, accommodation nl, no face palsy, no dysarthria Psychiatric: A+Ox3, euthymic affect Results & Data Results & Data ([facility]) Vital Signs (Past 12 Hours) Vital Signs Temp Pulse Resp BP Pulse Ox 08/27/21 16:08 37.1 C 67 16 118/79 97 08/27/21 07:56 36.9 C 80 16 116/60 99 Laboratory Results Short CBC 08/26/21 Range/Units 17:39 WBC 14.55 H (4.8-10.8) K/uL Hgb 14.0 (12.0-16.0) g/dL Hct 42.1 (37-47) % Plt Count 304 (130-400) K/uL BMP 08/26/21 08/27/21 17:39 02:24 Sodium 141 140 Potassium 3.6 3.2 L Chloride 109 H 108 H Carbon Dioxide 24 28 BUN 20 H 20 H Creatinine 0.70 0.78 Glucose 75 113 H Calcium 8.9 8.3 L Liver Function 08/27/21 Range/Units 02:24 Total Bilirubin 0.3 (0.2-1) mg/dl AST 15 (15-37) U/L ALT 36 (12-78) U/L Alkaline Phosphatase 38 L (45-117) U/L Albumin 2.9 L (3.4-5.0) gm/dl Urine 08/26/21 Range/Units 17:39 Urine Color Dark Yellow Urine Appearance Clear (Clear) Urine pH 5.5 (4.5-7.5) Ur Specific [place] 1.026 (1.000-1.030) Urine Protein Negative (Negative) Urine Glucose (UA) Negative (Negative) Diagnostic Findings Lumbar Spine MRI 08/26/21 17:08 MRI OF THE LUMBAR SPINE WITHOUT IV CONTRAST CLINICAL HISTORY: Low back pain. Saddle anesthesia. COMPARISON STUDY: No priors. TECHNIQUE: MRI of the lumbar spine is performed utilizing various T1 and T2- weighted sequences in the axial and sagittal planes. IV contrast was not administered for this examination. FINDINGS: Lumbar spine: Vertebral body height and alignment are maintained throughout the lumbar spine. Normal marrow signal intensity is preserved throughout the visualized bony structures. The transverse and spinous processes appear intact. There is no evidence of spondylolysis. No destructive bony lesion is seen. Intervertebral discs: There is mild degenerative disc desiccation in the lower lumbar spine. The disc spaces are maintained. Spinal cord: The visualized spinal cord is normal in morphology and signal intensity. The conus medullaris terminates at the L1-L2 interspace. The nerve roots of the cauda equina are normal in morphology. L1-L2: Unremarkable. L2-L3: Unremarkable. L3-L4: Unremarkable. L4-L5: Unremarkable. L5-S1: There is a posterior disc protrusion with annular fissure. This abuts the transiting nerve roots. No significant acquired compromise of the central canal is identified. There is minimal bilateral subarticular stenosis. In conjunction with facet arthropathy, there is minimal bilateral neural foraminal narrowing. Sacrum: The visualized sacrum is normal in morphology and signal intensity. Soft tissues: The paraspinous soft tissues are normal in appearance. The visualized retroperitoneal structures are grossly unremarkable but incompletely evaluated. IMPRESSION: 1. Posterior disc protrusion at L5-S1 as above. 2. There is no significant acquired compromise of the central canal. 3. No destructive bony process is identified. Dictated: 08/26/2021 7:46 PM Transcribed: 08/26/2021 8:05 PM Jennifer [id number] [facility] Electronically signed by: Johnathan Kaur M.D. 08/26/2021 8:11 PM
--- NOTE | 2021-08-27 18:11 | Anesthesiology Consultation ---
Date of Service August 27, 2021 Assessment & Plan Chart Review Chart Review: Acceptable Risk for Surgery and Patient NOT seen in Pre Admission Testing The patient's potassium was 3.2 today. She received oral potassium. BMP to be rechecked in AM. Consults Requested none History Surgery Operation Date: 08/27/21 07:00 Proposed Procedures p L5-S1 Decompression and Fusion - Vance Fitzgerald DO Operation Date: 08/28/21 07:00 Proposed Procedures p L5-S1 Lumbar Decompression Fusion - Vance Fitzgerald DO Height/Weight Height: 6 ft Weight: 129 kg Allergies Allergy/AdvReac Type Severity Reaction Status Date / Time bee venom protein (honey bee) Allergy Anaphylaxis Verified 08/26/21 18:13 latex Allergy Hives Verified 08/26/21 18:13 Medications Home Medications Medication Instructions Recorded Confirmed Last Taken diphenhydramine HCl 25 mg tablet 25 mg PO Q6H PRN 03/01/20 08/26/21 Unknown (Benadryl Allergy) lisdexamfetamine 70 mg capsule 70 mg PO DAILY 03/01/20 08/26/21 Unknown (Vyvanse) lorazepam 0.5 mg tablet 0.5 mg PO Q6H PRN 03/01/20 08/26/21 Unknown venlafaxine 150 mg 150 mg PO DAILY 03/01/20 08/26/21 Unknown capsule,extended release 24 hr atenolol 25 mg tablet 25 mg PO DAILY 08/26/21 08/26/21 Unknown cholecalciferol (vitamin D3) 125 125 mcg PO DAILY 08/26/21 08/26/21 Unknown mcg (5,000 unit) tablet (Vitamin D3) cyanocobalamin (vitamin B-12) 1,000 mcg PO DAILY 08/26/21 08/26/21 Unknown 1,000 mcg tablet (Vitamin B-12) epinephrine 0.3 mg/0.3 mL 0.3 mg IM Q4H PRN 08/26/21 08/26/21 Unknown injection, auto-injector fluticasone propionate 50 2 spray INTRANASAL DAILY 08/26/21 08/26/21 Unknown mcg/actuation nasal spray,suspension hydrochlorothiazide 12.5 mg capsule 12.5 mg PO DAILY 08/26/21 08/26/21 Unknown losartan 50 mg tablet 50 mg PO BID 08/26/21 08/26/21 Unknown meloxicam 15 mg tablet 15 mg PO DAILY 08/26/21 08/26/21 Unknown multivitamin 1 tab PO DAILY 08/26/21 08/26/21 Unknown norethindrone (contraceptive) 0.35 0.35 mg PO DAILY 08/26/21 08/26/21 Unknown mg tablet thiamine HCl (vitamin B1) 50 mg 50 mg PO DAILY 08/26/21 08/26/21 Unknown tablet (Vitamin B-1) venlafaxine 75 mg capsule,extended 75 mg PO DAILY 08/26/21 08/26/21 Unknown release 24 hr Active Medications Generic Name Dose Route Start Last Admin Trade Name Freq PRN Reason Stop Dose Admin Acetaminophen 1,000 mg 08/27/21 02:07 08/27/21 13:24 Acetaminophen 500 Mg Tab PO 09/26/21 02:06 1,000 mg Q8H PRN Administration MILD Pain Scale 1,2,3 & Pre PT Atenolol 25 mg 08/27/21 09:00 08/27/21 08:00 Atenolol 25 Mg Tablet PO 09/26/21 08:59 25 mg DAILY CARL Administration Cyanocobalamin 1,000 mcg 08/27/21 09:00 08/27/21 08:00 Cyanocobalamin 500 Mcg Tablet (Vitamin B-12) PO 09/26/21 08:59 1,000 mcg DAILY CARL Administration Hydrochlorothiazide 12.5 mg 08/27/21 09:00 08/27/21 08:01 Hydrochlorothiazide 25 Mg Tab PO 09/26/21 08:59 12.5 mg DAILY CARL Administration Hydromorphone HCl 1 mg 08/27/21 02:07 08/27/21 07:55 Hydromorphone Inj 1 Mg/Ml Syringe IV 09/10/21 02:06 1 mg Q3H PRN Administration severe pain (scale 7-10) Lactated Ringer's 1,000 mls @ 75 mls/hr 08/27/21 02:07 08/27/21 16:14 Lr IV 09/26/21 02:06 75 mls/hr .[id number] CARL Administration Losartan Potassium 50 mg 08/27/21 02:30 08/27/21 10:49 Losartan Potassium 50 Mg Tab PO 09/26/21 02:29 50 mg BID CARL Administration Miscellaneous 1 ea 08/27/21 08:00 08/27/21 15:23 Vyvanse: Order Awaiting Action N/A 09/26/21 07:59 Not Given QS CARL Miscellaneous 1 ea 08/27/21 08:00 08/27/21 15:22 Norethindrone: Order Awaiting Action N/A 09/26/21 07:59 Not Given QS CARL Multivitamins 1 tab 08/27/21 09:00 08/27/21 08:00 Multivitamin Tab PO 09/26/21 08:59 1 tab QAM CARL Administration Oxycodone HCl 5 - 10 mg 08/27/21 02:07 08/27/21 14:55 Oxycodone Hcl Ir 5 Mg Tab (Immediate Release) PO 09/10/21 02:06 10 mg Q4H PRN Administration mod to severe pain Thiamine HCl 50 mg 08/27/21 09:00 08/27/21 08:00 Thiamine Hcl 50 Mg Tablet PO 09/26/21 08:59 50 mg DAILY CARL Administration Venlafaxine HCl 75 mg 08/27/21 09:00 08/27/21 08:00 Venlafaxine Hcl Xr 75 Mg Capxr PO 09/26/21 08:59 75 mg DAILY CARL Administration Venlafaxine HCl 150 mg 08/27/21 09:00 08/27/21 08:00 Venlafaxine Hcl Xr 150 Mg Capxr PO 09/26/21 08:59 150 mg DAILY CARL Administration Vitamin D 5,000 units 08/27/21 09:00 08/27/21 08:00 Cholecalciferol 1,000 Units 25 Mcg Tab PO 09/26/21 08:59 5,000 units DAILY CARL Administration NPO Date Last Intake of Fluids: 08/26/21 Time Last Intake of Fluids: 23:00 Past Medical History Medical History ADHD Allergic rhinitis Anxiety Hepatic steatosis Hypertension Migraines KEYSHA on CPAP Past Family History Family History Grandfather Diabetes Past Surgical History Surgical History H/O adenoidectomy H/O oophorectomy H/O sinus surgery Social History Smoking Status: Never smoker Hx Alcohol Use: No Hx Substance Use: No Physical Exam Vital Signs Last Vital Signs Temp 37.1 C 08/27/21 16:08 Pulse 67 08/27/21 16:08 Resp 16 08/27/21 16:08 BP 118/79 08/27/21 16:08 Pulse Ox 97 08/27/21 16:08 Testing Laboratory Results 08/26/21 17:39 08/27/21 02:24 Urine Color Dark Yellow 08/26/21 17:39 Urine Appearance Clear (Clear) 08/26/21 17:39 Urine pH 5.5 (4.5-7.5) 08/26/21 17:39 Ur Specific [place] 1.026 (1.000-1.030) 08/26/21 17:39 Urine Protein Negative (Negative) 08/26/21 17:39 Urine Glucose (UA) Negative (Negative) 08/26/21 17:39 Urine Ketones Trace (Negative) H 08/26/21 17:39 Urine Nitrite Negative (Negative) 08/26/21 17:39 Ur Leukocyte Esterase Negative (Negative) 08/26/21 17:39 Urine WBC (Auto) 1-5 /hpf (0-5) 08/26/21 17:39 Urine RBC (Auto) 5-10 /hpf (0-4) H 08/26/21 17:39 U Hyaline Cast (Auto) 1-5 /lpf (0-5) 08/26/21 17:39 U Epithel Cells (Auto) >30 /lpf (0-5) H 08/26/21 17:39 Urine Bacteria (Auto) Negative (Negative) 08/26/21 17:39 08/26/21 17:39 POC Ur Test NEG Electrocardiogram Date: 08/27/21 Findings: + NSR @ (62) and + NSST changes QT has shortened from prior EKG
[2021-08-28] MEDS: LACTATED RINGER'S 1,000 ML IV SCH ×2 (06:24→19:45)
[2021-08-28 06:35] LABS: Hematocrit (blood only) 37.4 % (37-47); Mean Corpuscular Hemoglobin 30.2 pg (25-34); Mean Corpuscular Hgb Conc 32.1 g/dL (32-36); Mean Platelet Volume 11.2 fL (7.4-10.4); Platelet Count 224 K/uL (130-400); RDW Coefficient of Variation 12.8 % (11.5-14.5); RDW Standard Deviation 43.7 fL (36.4-46.3); Red Blood Count 3.98 M/uL (4.2-5.4); White Blood Count 9.04 K/uL (4.8-10.8)
[2021-08-28] MEDS: CYANOCOBALAMIN 500 MCG TABLET (VITAMIN B-12) PO SCH (08:01)
[2021-08-28] MEDS: ATENOLOL 25 MG TABLET PO SCH (08:01)
[2021-08-28] MEDS: CHOLECALCIFEROL 1,000 UNITS 25 MCG TAB PO SCH (08:01)
[2021-08-28] MEDS: THIAMINE HCL 50 MG TABLET PO SCH (08:01)
[2021-08-28] MEDS: VENLAFAXINE HCL XR 75 MG CAPXR PO SCH (08:02)
[2021-08-28] MEDS: VENLAFAXINE HCL XR 150 MG CAPXR PO SCH (08:02)
[2021-08-28] MEDS: MULTIVITAMIN TAB PO SCH (08:02)
[2021-08-28 08:03] LABS: BUN Creatinine Ratio 19.5 (10-20); Calcium 8.9 mg/dl (8.5-10.1); Creatinine Clr Calc Pharmacy 168.2 ml/min; Est GFR (African American) 128.8 ml/min; Est GFR (Non-African American) 111.1 ml/min; Magnesium 2.2 mg/dl (1.8-2.4); Potassium 3.7 mmol/L (3.5-5.1)
[2021-08-28] MEDS: oxyCODONE HCL IR 5 MG TAB (IMMEDIATE RELEASE) PO PRN ×2 (08:07→22:14)
[2021-08-28] MEDS ORDERED: MIDAZOLAM HCL 1 MG/ML 2ML VIAL ONE (11:53)
[2021-08-28] MEDS ORDERED: fentaNYL citrate 100 MCG/2 ML VIAL ONE (11:53)
[2021-08-28] MEDS ORDERED: NEOSTIGMINE METHYLSULFATE 1 MG/ML 10ML VIAL ONE (11:53)
[2021-08-28] MEDS ORDERED: LIDOCAINE 2% 2 ML VIAL/AMP(20MG/ML) INFIL ONE (11:53)
[2021-08-28] MEDS ORDERED: PROPOFOL IV EMULSION 10 MG/ML 20 ML VIAL IV ONE (11:53)
[2021-08-28] MEDS ORDERED: ONDANSETRON INJ 2 MG/ML 2 ML VIAL ONE (11:53)
[2021-08-28] MEDS ORDERED: DEXAMETHASONE SOD INJ 4 MG/ML VIAL ONE (11:53)
[2021-08-28] MEDS ORDERED: GLYCOPYRROLATE 0.2 MG/ML VIAL ONE (11:53)
[2021-08-28] MEDS ORDERED: BUPIVACAINE 0.5 % 5 MG/1 ML MPF 30ML VIAL ONE (12:33)
--- NOTE | 2021-08-28 13:06 | Electrocardiogram Report ---
Test Reason : Blood Pressure : / mmHG Vent. Rate : 062 BPM Atrial Rate : 062 BPM P-R Int : 176 ms QRS Dur : 094 ms QT Int : 420 ms P-R-T Axes : 043 052 023 degrees QTc Int : 426 ms Normal sinus rhythm Normal ECG When compared with ECG of 01-MAR-2020 17:28, Non-specific change in ST segment in Inferior leads QT has shortened Confirmed by Kana Harrington ([id number]) on 08/28/2021 1:05:27 PM Referred By: REFERRED SELF Confirmed By:Estiven Harrington
[2021-08-28] MEDS ORDERED: ceFAZolin 3000MG/72.5 ML BAG IV ONE (13:18)
[2021-08-28] MEDS ORDERED: ONDANSETRON INJ 2 MG/ML 2 ML VIAL IV PRN ×2 (13:34→17:21)
[2021-08-28] MEDS ORDERED: ATROPINE SULFATE 0.1 MG/ML 10ML SYR IV PRN (13:34)
[2021-08-28] MEDS ORDERED: ePHEDrine sulfate 50 MG/ML AMP IV PRN (13:34)
[2021-08-28] MEDS ORDERED: diphenhydrAMINE 50 MG/ML VIAL ONE (13:47)
[2021-08-28] MEDS ORDERED: FLOSEAL HEMOSTATIC MATRIX 10ML TOP ONE (14:07)
[2021-08-28] MEDS ORDERED: EPINEPHrine INJ 1 MG/ML AMP IM ONE ×2 (14:09→14:24)
[2021-08-28] MEDS ORDERED: HYDROmorphone INJ 2 MG/ML SYR/VIAL ONE (14:15)
[2021-08-28] MEDS ORDERED: ROCURONIUM BROMIDE 10 MG/ML 5 ML VIAL IV ONE (14:31)
--- NOTE | 2021-08-28 15:03 | Operative Report ---
Post Operative Report Pre & Post Diagnosis Operation Date: 08/27/21 07:00 <No data on this case meets the specified criteria> Operation Date: 08/28/21 07:00 Pre-Op Diagnosis: Lumbar Disc Herniation with Lumbar Retrolisthesis L5-S1 with Right-Sided Radiculopathy Post-Op Diagnosis: Lumbar Disc Herniation with Lumbar Retrolisthesis L5-S1 with Right-Sided Radiculopathy I identified the patient and participated in the time-out.: Yes Procedure Operation Date: 08/27/21 07:00 <No data on this case meets the specified criteria> Operation Date: 08/28/21 07:00 Actual Procedures #1 lumbar decompression with bilateral medial facetectomies and foraminotomies L5-S1. #2 posterior spinal fusion L5-S1. #3 placed posterior instrumentation L5-S1. #4 interbody fusion L5-S1. #5 placement of titanium cage 13 x 26 mm at L5-S1. 6 placement locally harvested morselized autograft in the posterior lateral gutters 7 placement of I factor combined with vitoss then by space and posterior lateral gutters. Surgeon Vance Fitzgerald, DO Gold Frame Assembler Leigh Ann Castellano Estimated Blood Loss 100 Findings See Below The patient is 6 feet tall weighing 129 kg with a BMI in excess of 38. The patient's body habitus did contribute to significant technical difficulty requiring her deepest retractors longus instruments in order to perform her procedure. This added at least 50% increased operative time. Specimens None Indications This is a 36-year-old female the presents with marked decline in status with worsening right leg pain and weakness and perineal numbness and is here for urgent decompression fusion. Description of Procedure Patient was met with identified informed consent obtained. Patient was then taken to the operative suite underwent a patient placed in a prone position the Jaime table on top of the Faisal frame. All bony prominences well-padded eyes inspected to ensure no external pressure placed upon them. At this point lumbar spine was prepped and draped in a sterile fashion. Sharp dissection with the assistance of Bovie cautery performed down to and exposing the lamina and transverse processes of L5 and sacral ala bilaterally. From caudal cephalad fashion complete laminectomy L5 bilateral medial facetectomy and foraminotomies performed. Demonstrated evidence of severe compression of the traversing S1 nerve root on the right clearly compressed between the lateral recess of the facet lamina and disc herniation. After complete decompression pedicle screws were placed in L5 and S1 levels bilaterally with assistance of fluoroscopy and appropriate sized brenna placed. By way of a transforaminal approach on the right a complete discectomy was performed endplates curetted to subcortical bleeding bone and a 13 x 26 mm peek cage filled with I factor tapped into position. The rods then compressed locked in final position bilaterally. The transverse process of L5 and sacral ala burred to subcortical bleeding bone. I factor combined with V toss was placed in the posterior gutters. 15 round NATO drain inserted. The incision was then closed with 1 Vicryl in the fascia 2-0 Vicryl subcutaneously and 4 Monocryl for final skin closure. Steri-Strip sterile dressings placed. Patient waken taken to PACU stable condition. Please note spinal cord monitoring was utilized at the procedure no changes noted. Lastly Leigh Ann Castellano was present at the entire surgeon while the patient positioning c omplex portions of the surgery and final skin closure. I attest to the content of the Intraoperative Record and any orders documented therein. Any exceptions are noted below.
--- NOTE | 2021-08-28 15:13 | Fluoroscopy Report ---
FL lumbar spine 2-3V CLINICAL HISTORY: L5-S1 COMPARISON STUDY: Lumbar spine MRI August 26, 2021. FLUOROSCOPY TIME: 22 seconds. FLUOROSCOPIC IMAGES: 4 FINDINGS: Fluoroscopy was provided during L5-S1 discectomy, posterior decompression and bilateral ped icle screw fusion. Hardware is intact. IMPRESSION: Fluoroscopy provided during L5-S1 discectomy, posterior decompression and bilateral pedi shahla screw fusion. ACT 112: Negative or not required by law. Electronically signed by: Jefry Ibrahim M.D. 08/28/2021 3:11 PM
[2021-08-28] MEDS: fentaNYL citrate 100 MCG/2 ML VIAL IV PRN ×4 (15:32→15:53)
--- NOTE | 2021-08-28 15:53 | Anesthesiology Progress Note ---
Date of Service August 28, 2021 Anesthesia Post Procedure Vital Signs Vital Signs: Temp Pulse Pulse Pulse Resp BP BP 08/28/21 15:45 80 14 127/74 08/28/21 15:35 63 20 132/62 08/28/21 15:25 76 19 130/76 08/28/21 15:19 36.9 C 68 16 146/87 H 08/28/21 12:19 36.7 C 69 18 149/70 H 08/28/21 07:53 36.8 C 73 16 119/79 08/27/21 22:20 74 16 08/27/21 22:15 37.1 C 66 16 116/68 08/27/21 18:17 08/27/21 16:08 37.1 C 67 16 118/79 Pulse Ox Pulse Ox 08/28/21 15:45 98 08/28/21 15:35 94 08/28/21 15:25 100 08/28/21 15:19 95 08/28/21 12:19 100 08/28/21 07:53 100 08/27/21 22:20 98 08/27/21 22:15 99 08/27/21 18:17 97 08/27/21 16:08 97 Pain Intensity Back: Pain Intensity: 8 Transfer of Care Handoff Completed per policy Notes Mental Status: alert / awake / arousable and participated in evaluation Patient Amnestic to Procedure: Yes Nausea / Vomiting: adequately controlled Pain: adequately controlled Airway Patency, RR, SpO2: stable & adequate BP & HR: stable & adequate Hydration State: stable & adequate Anesthetic Complications: no major complications apparent
[2021-08-28] MEDS: HYDROmorphone INJ 2 MG/ML SYR/VIAL IV PRN ×4 (16:00→16:15)
--- NOTE | 2021-08-28 16:32 | Anesthesiology Progress Note ---
Date of Service August 28, 2021 Anesthesia Post Procedure Vital Signs Vital Signs: Temp Pulse Pulse Pulse Resp BP BP 08/28/21 16:25 76 14 122/56 L 08/28/21 16:15 73 19 108/67 08/28/21 16:05 70 16 112/74 08/28/21 15:55 75 19 126/71 08/28/21 15:45 80 14 127/74 08/28/21 15:35 63 20 132/62 08/28/21 15:25 76 19 130/76 08/28/21 15:19 98.4 F 68 16 146/87 H 08/28/21 12:19 98.1 F 69 18 149/70 H 08/28/21 07:53 98.2 F 73 16 119/79 08/27/21 22:20 74 16 08/27/21 22:15 98.8 F 66 16 116/68 08/27/21 18:17 Pulse Ox Pulse Ox 08/28/21 16:25 96 08/28/21 16:15 97 08/28/21 16:05 98 08/28/21 15:55 97 08/28/21 15:45 98 08/28/21 15:35 94 08/28/21 15:25 100 08/28/21 15:19 95 08/28/21 12:19 100 08/28/21 07:53 100 08/27/21 22:20 98 08/27/21 22:15 99 08/27/21 18:17 97 Pain Intensity Back: Pain Intensity: 7 Transfer of Care Handoff Completed per policy Notes Mental Status: alert / awake / arousable and participated in evaluation Patient Amnestic to Procedure: Yes Nausea / Vomiting: adequately controlled Pain: adequately controlled Airway Patency, RR, SpO2: stable & adequate BP & HR: stable & adequate Hydration State: stable & adequate Anesthetic Complications: no major complications apparent and Pt Satisfied with anesthetic care
[2021-08-28] MEDS ORDERED: METOCLOPRAMIDE HCL INJ 5 MG/ML 2 ML VIAL IV PRN (17:21)
[2021-08-28] MEDS ORDERED: LORazepam 0.5 MG/1 ML VIAL IV PRN (17:21)
[2021-08-28] MEDS ORDERED: ACETAMINOPHEN 1,000 MG/100 ML VIAL IV PRN (17:21)
[2021-08-28] MEDS ORDERED: ACETAMINOPHEN 500 MG TAB PO PRN (17:21)
[2021-08-28] MEDS ORDERED: ONDANSETRON 4 MG OD TAB PO PRN (17:21)
[2021-08-28] MEDS ORDERED: HYDROmorphone INJ 1 MG/ML SYRINGE IV PRN (17:21)
[2021-08-28] MEDS ORDERED: FAMOTIDINE 20 MG TAB PO PRN (17:21)
[2021-08-28] MEDS ORDERED: HYDROmorphone INJ 0.5 MG/0.5 ML SYR IV PRN (17:21)
[2021-08-28] MEDS ORDERED: SOD PHOSPHATE/SOD BIPHOSPHATE ENEMA 132 ML BTL PR PRN (17:21)
[2021-08-28] MEDS ORDERED: traMADol HCL 50 MG TABLET PO PRN (17:21)
[2021-08-28] MEDS ORDERED: hydrOXYzine HCl 25 MG TAB PO PRN (17:21)
[2021-08-28] MEDS ORDERED: DO NOT ADMINISTER PNEUMOCOCCAL VACCINE PRN (17:21)
[2021-08-28] MEDS ORDERED: LORazepam 0.5 MG TAB PO PRN (17:21)
[2021-08-28] MEDS ORDERED: MAGNESIUM HYDROXIDE SUSP 30 ML UDC PO PRN (17:21)
[2021-08-28] MEDS ORDERED: NALOXONE HCL 0.4 MG/1 ML VIAL/CARP IV PRN (17:21)
[2021-08-28] MEDS ORDERED: PROMETHAZINE HCL 12.5 MG in SODIUM CHLORIDE 0.9% 50 ML IV PRN (17:21)
[2021-08-28] MEDS ORDERED: DO NOT ADMINISTER FLU VACCINE PRN (17:21)
[2021-08-28] MEDS ORDERED: bisacodyL 10 MG SUPP PR PRN ×2 (17:21→19:31)
[2021-08-28] MEDS ORDERED: ALUMINUM/MAGNESIUM SUSP 30 ML UDC PO PRN (17:21)
[2021-08-28] MEDS: DOCUSATE SODIUM/SENNA 50/8.6MG TAB PO SCH (19:55)
[2021-08-28] MEDS: ceFAZolin 2000MG 2,000 MG/15 ML SYR IV SCH (19:56)
--- NOTE | 2021-08-28 21:00 | Hospitalist Progress Note ---
Date of Service August 28, 2021 Assessment & Plan (1) Lumbar disc herniation with radiculopathy: Plan: (1) Lumbar disc herniation with radiculopathy: - Patient presented with intractable low back pain. MRI showed disc protrusion at L5-S1. - 08/28 status post lumbar decompression and fusion by Dr. Fitzgerald - activity and wound care, PT/OT, DVT prophylaxis , pain control and diet as per ortho - monitor H/H for acute blood loss anemia and transfuse blood products PRN -Incentive spirometer (2) Hypertension: -BP controlled, continue to hold losartan and HCTZ due to concerns of anesthesia lowering blood pressure -Reassess tomorrow morning for initiation of antihypertensive (3) KEYSHA on CPAP: -CPAP as per home settings (4) Anxiety: (5) ADHD: -Stable, continue home medications (6) DVT prophylaxis: -TEDs/SCDs as per spine Ortho Admission and Anticipated Discharge Date Admission Date: August 26, 2021 Subjective Patient lying in bed, on 2 L nasal cannula oxygen, NAD, no new acute events overnight. Patient came from lumbar spinal surgery, AOx3, well communicative and no lethargic. Patient reports low back pain at the surgery site but also reports improvement in her radiculopathy signs and symptoms. Patient denies headache/dizziness/chest pain/palpitation/other review of symptoms. Physical Exam Physical Exam: GENERAL: Alert and oriented x3. NAD, on 2L HEENT: No pallor, no icterus. Pupils equal, round and reactive to light. Oral mucosa moist. NECK: No JVD, no neck masses. HEART: S1 and S2 heard. Regular rate and rhythm. No murmur, no gallop. RESPIRATORY SYSTEM: Normal AP diameter. No accessory muscle use. No wheezing, no crackles. ABDOMEN: Soft, bowel sounds present, nontender, no distention. CENTRAL NERVOUS SYSTEM: No facial droop. Speech is clear. Obeys simple commands. Moves extremities. EXTREMITIES: No edema, no erythema seen. Results & Data Results & Data ([facility]) Vital Signs (Past 12 Hours) Vital Signs Temp Pulse Pulse Resp BP BP Pulse Ox 08/28/21 19:42 36.9 C 66 16 114/63 97 08/28/21 18:45 36.9 C 73 16 119/59 L 98 08/28/21 17:45 36.8 C 64 16 115/63 97 08/28/21 16:45 69 17 129/66 97 08/28/21 16:33 37.4 C 67 17 112/62 96 08/28/21 16:25 76 14 122/56 L 96 08/28/21 16:15 73 19 108/67 97 08/28/21 16:05 70 16 112/74 98 08/28/21 15:55 75 19 126/71 97 08/28/21 15:45 80 14 127/74 98 08/28/21 15:35 63 20 132/62 94 08/28/21 15:25 76 19 130/76 100 08/28/21 15:19 36.9 C 68 16 146/87 H 95 08/28/21 12:19 36.7 C 69 18 149/70 H 100
[2021-08-29] MEDS: LACTATED RINGER'S 1,000 ML IV SCH (02:35)
[2021-08-29] MEDS: oxyCODONE HCL IR 5 MG TAB (IMMEDIATE RELEASE) PO PRN ×3 (05:31→13:42)
[2021-08-29] MEDS: ceFAZolin 2000MG 2,000 MG/15 ML SYR IV SCH (05:31)
[2021-08-29] MEDS: POLYETHYLENE (MIRALAX) 17 GM PACK PO SCH ×3 (05:32→18:01)
[2021-08-29 06:56] LABS: Basophils # (auto) 0.01 K/uL (0-0.2); Basophils % (auto) 0.1 %; Eosinophils # (auto) 0.01 K/uL (0-0.5); Eosinophils % (auto) 0.1 %; Hematocrit (blood only) 37.4 % (37-47); Hemoglobin 12.4 g/dL (12.0-16.0); Immature Granulocytes # (auto) 0.09 K/uL (0.00-0.02); Immature Granulocytes % (auto) 0.5 %; Lymphocytes # (auto) 1.45 K/uL (1.2-3.4); Lymphocytes % (auto) 7.5 %; Mean Corpuscular Hemoglobin 30.6 pg (25-34); Mean Corpuscular Hgb Conc 33.2 g/dL (32-36); Mean Corpuscular Volume 92.3 fL (80-100); Mean Platelet Volume 11.2 fL (7.4-10.4); Monocytes % (auto) 4.7 %; Neutrophils # (auto) 16.78 K/uL (1.4-6.5); Neutrophils % (auto) 87.1 %; Platelet Count 277 K/uL (130-400); RDW Coefficient of Variation 12.6 % (11.5-14.5); RDW Standard Deviation 42.7 fL (36.4-46.3); Red Blood Count 4.05 M/uL (4.2-5.4); White Blood Count 19.24 K/uL (4.8-10.8)
[2021-08-29 07:41] LABS: Calcium 9.4 mg/dl (8.5-10.1); Creatinine Clr Calc Pharmacy 161.4 ml/min; Est GFR (African American) 122.5 ml/min; Est GFR (Non-African American) 105.7 ml/min; Potassium 3.7 mmol/L (3.5-5.1)
[2021-08-29] MEDS: CHOLECALCIFEROL 1,000 UNITS 25 MCG TAB PO SCH (08:24)
[2021-08-29] MEDS: VENLAFAXINE HCL XR 150 MG CAPXR PO SCH (08:29)
[2021-08-29] MEDS: ATENOLOL 25 MG TABLET PO SCH (08:29)
[2021-08-29] MEDS: VENLAFAXINE HCL XR 75 MG CAPXR PO SCH (08:29)
[2021-08-29] MEDS: THIAMINE HCL 50 MG TABLET PO SCH (08:30)
[2021-08-29] MEDS: MULTIVITAMIN TAB PO SCH (08:30)
[2021-08-29] MEDS: CYANOCOBALAMIN 500 MCG TABLET (VITAMIN B-12) PO SCH (08:31)
[2021-08-29] MEDS: dexAMETHasone 6 MG in SYRINGE 0 ML IV SCH (08:32)
--- NOTE | 2021-08-29 15:23 | Orthopedic Progress Note ---
Date of Service August 29, 2021 Assessment & Plan (1) Lumbar disc herniation with radiculopathy: Plan: At this time we will continue physical therapy monitor NATO operatively discharge home tomorrow. Admission and Anticipated Discharge Date Admission Date: August 26, 2021 Subjective Patient back pain is controlled leg pain markedly improved. She has been ambulating well today. Physical Exam Physical Exam: On exam she has good strength testing appears comfortable. Results & Data ([facility]) Vital Signs (Past 12 Hours) Vital Signs Temp Pulse Resp BP Pulse Ox Pulse Ox 08/29/21 12:04 37.3 C 71 16 131/74 97 08/29/21 07:50 37.1 C 74 16 126/75 98 08/29/21 05:44 99
[2021-08-29] MEDS ORDERED: diphenhydrAMINE 50 MG/ML VIAL IV STA (16:17)
--- NOTE | 2021-08-29 16:28 | Hospitalist Progress Note ---
Date of Service August 29, 2021 Assessment & Plan (1) Lumbar disc herniation with radiculopathy: Plan: (1) Lumbar disc herniation with radiculopathy: - Patient presented with intractable low back pain. MRI showed disc protrusion at L5-S1. - 08/28 status post lumbar decompression and fusion by Dr. Fitzgerald - activity and wound care, PT/OT, DVT prophylaxis , pain control and diet as per ortho - monitor H/H for acute blood loss anemia and transfuse blood products PRN -Incentive spirometer #. Allergic reaction likely due to opiates Patient received multiple doses of hydromorphone, fentanyl and oxycodone on 08/28 ---> patient reported having chest tightness and hives on 08/28 --> relieved with Benadryl Patient received 2 doses of oxycodone today, again noted to have chest tightness/feeling of heart racing/hives. No hydromorphone doses today. Benadryl stat and utilize as needed doses. We will put her on Toradol as needed for pain management for now. (2) Hypertension: -BP controlled, resume HCTZ, continue to hold losartan and reassess tomorrow (3) KEYSHA on CPAP: -CPAP as per home settings (4) Anxiety: (5) ADHD: -Stable, continue home medications (6) DVT prophylaxis: -TEDs/SCDs as per spine Ortho Admission and Anticipated Discharge Date Admission Date: August 26, 2021 Subjective Patient lying in bed, on room air, NAD, no acute events overnight. Patient moving gas, has not moved bowels yet. Patient reports pain under control. Patient reports right toes numbness. Denies fever/chills/chest pain/palpitation/belly pain/other review of symptoms. Patient is being advanced to regular diet. Physical Exam Physical Exam: GENERAL: Alert and oriented x3. NAD, on RA HEENT: No pallor, no icterus. Pupils equal, round and reactive to light. Oral mucosa moist. NECK: No JVD, no neck masses. HEART: S1 and S2 heard. Regular rate and rhythm. No murmur, no gallop. RESPIRATORY SYSTEM: Normal AP diameter. No accessory muscle use. No wheezing, no crackles. ABDOMEN: Soft, bowel sounds present, nontender, no distention. CENTRAL NERVOUS SYSTEM: No facial droop. Speech is clear. Obeys simple commands. Moves extremities. EXTREMITIES: No edema, no erythema seen. Results & Data Results & Data ([facility]) Vital Signs (Past 12 Hours) Vital Signs Temp Pulse Resp BP Pulse Ox Pulse Ox 08/29/21 15:42 36.9 C 77 16 119/77 99 08/29/21 12:04 37.3 C 71 16 131/74 97 08/29/21 07:50 37.1 C 74 16 126/75 98 08/29/21 05:44 99
[2021-08-29] MEDS: KETOROLAC TROMETHAMINE 15 MG/ML VIAL IV PRN (16:57)
[2021-08-29] MEDS: diphenhydrAMINE Capsule 25 MG CAP PO PRN (18:50)
[2021-08-29] MEDS: DOCUSATE SODIUM/SENNA 50/8.6MG TAB PO SCH (20:31)
[2021-08-30] MEDS: POLYETHYLENE (MIRALAX) 17 GM PACK PO SCH ×2 (00:14→05:39)
[2021-08-30] MEDS: diphenhydrAMINE Capsule 25 MG CAP PO PRN (05:39)
--- NOTE | 2021-08-30 08:51 | Discharge Summary ---
Date of Service August 30, 2021 Admission HPI Per Admitting Provider This is a 36-year-old female known to me the presents with a longstanding history of worsening lumbosacral back pain with radiation down the right leg. Describes pain in right buttock posterior thigh below the knee into the calf heel and into the lesser toe. Is been progressive over the past year. She is undergone a recent course of lumbar epidural injections without any significant improvement in her pain. Is undergone 2 courses of oral steroids without improvement. Is undergone extensive course of physical therapy as well as resident care provider without any improvement. She states it markedly limits her q uality of life. She cannot bend or twist without reproduction of pain. Walking is limited. She notes weakness in the right lower extremity. It does awaken her from sleep. Most urgently she is noting perineal numbness and urinary retention. She did have a fall approximately 3 months ago. She has tried various oral pain medications but find that there not effective in relieving any component of her pain. Principal Diagnosis Lumbar disc condition with radiculopathy Discharge Data Allergies Allergy/AdvReac Type Severity Reaction Status Date / Time bee venom protein (honey bee) Allergy Anaphylaxis Verified 08/26/21 18:13 latex Allergy Hives Verified 08/26/21 18:13 Consultations 08/27/21 02:07 Consult Internal Medicine Routine Procedures Performed Operation Date: 08/27/21 07:00 <No data on this case meets the specified criteria> Operation Date: 08/28/21 07:00 Actual Procedures p L5-S1 Lumbar Decompression Fusion, Interbody Fusion with Application of IFactor Bone Graft and Spinal Cord Monitoring(Bilateral) - Vance Fitzgerald DO Ordered Studies 08/26/21 17:08 MR lumbar spine wo con Stat 08/28/21 12:00 FL lumbar spine 2-3V Routine Hospital Course (1) Lumbar disc herniation with radiculopathy: Patient underwent lumbar decompression fusion tolerated so was taken to orthopedic floor postoperative. Postop day 1 she was up and ambulating leg pain markedly improved. Postop day #2 she continued to improve. NATO drain decreasing appropriately. Excellent strength testing. Subsequently discharged home. Discharge orders instructions found in chart for further review.. Total Time Total Time Spent Total Time Spent (In Minutes): 20 minutes Discharge Plan Discharge Items Patient Disposition: Home - Self-Care Reason For Visit: LEG PAIN AND WEAKNESS Discharge Diagnosis: Lumbar disc condition with weakness Activity: As commented below Non-emergency contact: Primary Care Provider Call non-emergency contact if: you have any medication questions Follow-up/Referrals: Vance Fitzgerald DO [Surgeon] - Luis Kan MD [Primary Care Provider] - Diet: Regular Addtl Attending Provider Instructions: ACTIVITY RECOMMENDATIONS: SELF CARE INSTRUCTIONS AFTER THORACIC/LUMBAR FUSIONS 1. You may walk to your tolerance. It is good exercise for your legs and back. Expect some back and intermittent leg aches and pains. 2. You may perform "counter-top" level activities (make a sandwich, pushpa with a project, etc.). 3. No bending or lifting of more than 10 pounds or back twisting of any nature (roll like a log when turning in bed). 4. You may ride in a car for 20-30 minutes at a time. No driving until after your first visit with your doctor. 5. Frequent changes of position and restricting sitting to 30 minutes at a time will help limit the amount of back spasms and stiffness you may experience. 6. You may discontinue the use of ambulatory aids (cane, crutches, etc.) once your strength and confidence allow. 7. You may insurance assistant the shower and let water strike your incision when you arrive home at least once daily. Do not take a tub bath, sit in a hot tub or go into a swimming pool until after your first recheck in the office. SPECIAL CARE INSTRUCTIONS: VERY IMPORTANT TO READ AND REVIEW A. Your surgical incision has been closed with a cosmetic suture under the skin that will dissolve in about 6 weeks. In 14 days, you can use a pair of clean scissors and cut the suture that is left outside of the skin at the ends of your incision. 1. The small skin tapes can be removed 7 days after surgery if they have not fallen off by that point. 2. You may keep the wound open to air as much as possible to promote healing after post-op day number 5 unless told otherwise by your doctor. 3. If you think the wound looks like it is becoming infected (redness or worsening drainage) and/or you are experiencing fever, chill or worsening back pain and muscle spasms, contact the office so that we may evaluate you as soon as possible. B. Complications are uncommon, but please contact us if you have any signs or symptoms of: 1. wound infection (fever higher than 102.5 degrees F, redness, separation of wound, drainage, or increasing pain from the incision) 2. blood clots in legs (pain, swelling, redness and warmth in legs) 3. urinary tract infection (fever higher than 102.5 degrees F, burning upon urination or increased frequency of urination) 4. nerve problems (inability to walk on your toes or heels, numbness, loss of bowel or bladder control) 5. any other symptoms that concern you C. Please call the office at if you have any concerns or questions about your operation or recovery. D. No smoking! Smoking drastically decreases the chance of a solid fusion. E. Do not take any anti-inflammatory medications (Indocin, Advil, Motrin, Aspirin, Naprosyn, etc.) as these may inhibit the chance of a solid fusion. Tylenol is okay to take for pain. MANAGING PAIN AFTER SPINAL SURGERY 1. Narcotic medication is intended for short-term use and will be provided for surgical pain. Surgical pain usually lasts for a period of 4-6 weeks. Narcotic medication includes Percocet, Vicodin, Darvocet, Tylenol #3 or Lortab. 2. Longer-term pain is more appropriately treated with non-narcotic medication such as Tylenol ES. 3. Muscle spasm is not appropriately treated with narcotics. Muscle relaxers such as Soma, Flexeril or Skelaxin can be used along with Tylenol ES. 4. Remember that we all live with some "aches and pains". This is not unusual or uncommon after an injury or as we get older. a. Back pain is expected and may include muscle spasms for 4 to 6 weeks after surgery. The pain should gradually improve. If the pain worsens for no apparent reason, please contact the office. b. Intermittent leg pain may also be experienced and should not be concerned about unless it worsens for no apparent reason. If so, please contact the office. 5. We will provide appropriate medication within the normal guidelines of their prescribed use. We will also be very cautious and aware of potential abuse and extended duration of patients' medication needs. a. Pain medications are for your comfort and to assist with sleep and rest so that the tissue can heal. They are not provided in order to return to normal activity and should not be used through the day. To do so or worsening pain at night can result from ongoing tissue damage and development of tolerance to the prescribed medicine. 6. Please allow 2-3 days to process refills. Prescriptions will not be mailed but must be picked up at the office. FOLLOW UP VISIT: Keep your scheduled follow-up appointment. Any questions, please call the office at . Pending Studies at Discharge: No Stand-Alone Forms: [facility], Smoking Cessation Medications and DC Order Prescriptions: New tramadol 50 mg tablet 50 mg PO Q6H PRN (Reason: pain, moderate) Qty: 30 RF: 0 oxycodone 5 mg tablet 5 mg PO Q6H PRN (Reason: pain, severe) Qty: 30 RF: 0 Continued venlafaxine 150 mg capsule,extended release 24hr 150 mg PO DAILY RF: 0 lorazepam 0.5 mg tablet 0.5 mg PO Q6H PRN (Reason: Anxiety) RF: 0 diphenhydramine HCl [Benadryl Allergy] 25 mg Tablet 25 mg PO Q6H PRN (Reason: Allergy Symptoms) RF: 0 Vyvanse 70 mg capsule 70 mg PO DAILY RF: 0 multivitamin Tablet 1 tab PO DAILY RF: 0 losartan 50 mg tablet 50 mg PO BID RF: 0 venlafaxine 75 mg capsule,extended release 24hr 75 mg PO DAILY RF: 0 meloxicam 15 mg tablet 15 mg PO DAILY RF: 0 atenolol 25 mg tablet 25 mg PO DAILY RF: 0 cyanocobalamin (vitamin B-12) [Vitamin B-12] 1,000 mcg Tablet 1,000 mcg PO DAILY RF: 0 hydrochlorothiazide 12.5 mg capsule 12.5 mg PO DAILY RF: 0 epinephrine 0.3 mg/0.3 mL Auto-Injector 0.3 mg IM Q4H PRN (Reason: Allergic Reaction) RF: 0 norethindrone (contraceptive) 0.35 mg tablet 0.35 mg PO DAILY RF: 0 fluticasone propionate 50 mcg/actuation spray,suspension 2 spray INTRANASAL DAILY RF: 0 thiamine HCl (vitamin B1) [Vitamin B-1] 50 mg Tablet 50 mg PO DAILY RF: 0 cholecalciferol (vitamin D3) [Vitamin D3] 125 mcg (5,000 unit) Tablet 125 mcg PO DAILY RF: 0 Discharge Orders: Discharge Order (Routine); Ordered 08/30/21 Ordered By: Vance Fitzgerald Admission Data Admit Date/Time: 08/26/21 19:35 Attending Provider: Vance Fitzgerald Admit Provider: Vance Fitzgerald Primary Care Provider: Luis Kan Other Providers: Iona Liao ; Jenn Grant
[2021-08-30] MEDS ORDERED: hydroCHLOROthiazide 25 MG TAB PO SCH (09:00)
[2021-08-30] MEDS: ATENOLOL 25 MG TABLET PO SCH (09:13)
[2021-08-30] MEDS: MULTIVITAMIN TAB PO SCH (09:13)
[2021-08-30] MEDS: CHOLECALCIFEROL 1,000 UNITS 25 MCG TAB PO SCH (09:13)
[2021-08-30] MEDS: CYANOCOBALAMIN 500 MCG TABLET (VITAMIN B-12) PO SCH (09:13)
[2021-08-30] MEDS: VENLAFAXINE HCL XR 75 MG CAPXR PO SCH (09:14)
[2021-08-30] MEDS: THIAMINE HCL 50 MG TABLET PO SCH (09:14)
[2021-08-30] MEDS: dexAMETHasone 6 MG in SYRINGE 0 ML IV SCH (09:14)
[2021-08-30] MEDS: VENLAFAXINE HCL XR 150 MG CAPXR PO SCH (09:14)
[2021-08-30] MEDS: KETOROLAC TROMETHAMINE 15 MG/ML VIAL IV PRN (09:16)
--- NOTE | 2021-08-30 10:27 | Electrocardiogram Report ---
Test Reason : Blood Pressure : / mmHG Vent. Rate : 071 BPM Atrial Rate : 071 BPM P-R Int : 158 ms QRS Dur : 100 ms QT Int : 386 ms P-R-T Axes : 038 014 000 degrees QTc Int : 419 ms Normal sinus rhythm Normal ECG When compared with ECG of 27-AUG-2021 17:21, No significant change was found Confirmed by Kana Harrington ([id number]) on 08/30/2021 10:27:01 AM Referred By: REFERRED SELF Confirmed By:Estiven Harrington
--- NOTE | 2021-08-30 17:36 | Hospitalist Progress Note ---
Date of Service August 30, 2021 Assessment & Plan (1) Lumbar disc herniation with radiculopathy: Plan: (1) Lumbar disc herniation with radiculopathy: - Patient presented with intractable low back pain. MRI showed disc protrusion at L5-S1. - 08/28 status post lumbar decompression and fusion by Dr. Fitzgerald - activity and wound care, PT/OT, DVT prophylaxis , pain control and diet as per ortho - monitor H/H for acute blood loss anemia and transfuse blood products PRN -Incentive spirometer #. Allergic reaction likely due to opiates Patient received multiple doses of hydromorphone, fentanyl and oxycodone on 08/28 ---> patient reported having chest tightness and hives on 08/28 --> relieved with Benadryl Patient received 2 doses of oxycodone 08/29, again noted to have chest tightness/feeling of heart racing/hives. No hydromorphone doses 08/29. Pain management per Ortho. (2) Hypertension: Resume home meds (3) KEYSHA on CPAP: -CPAP as per home settings (4) Anxiety: (5) ADHD: -Stable, continue home medications (6) DVT prophylaxis: -TEDs/SCDs as per spine Ortho Admission and Anticipated Discharge Date Admission Date: August 26, 2021 Subjective Patient lying in bed, on room air, NAD, no acute events overnight. Patient reports pain under control. Patient reports right toes numbness. Denies fever/chills/chest pain/palpitation/belly pain/other review of symptoms. Patient tolerated diet well. Physical Exam Physical Exam: GENERAL: Alert and oriented x3. NAD, on RA HEENT: No pallor, no icterus. Pupils equal, round and reactive to light. Oral mucosa moist. NECK: No JVD, no neck masses. HEART: S1 and S2 heard. Regular rate and rhythm. No murmur, no gallop. RESPIRATORY SYSTEM: Normal AP diameter. No accessory muscle use. No wheezing, no crackles. ABDOMEN: Soft, bowel sounds present, nontender, no distention. CENTRAL NERVOUS SYSTEM: No facial droop. Speech is clear. Obeys simple commands. Moves extremities. EXTREMITIES: No edema, no erythema seen. Back exam: Clean incision site without erythema/swelling/pus. Results & Data Results & Data ([facility]) Vital Signs (Past 12 Hours) Vital Signs Temp Pulse Pulse Resp BP BP Pulse Ox 08/30/21 10:58 36.4 C L 73 84 16 106/67 114/63 97 08/30/21 07:37 36.4 C L 84 16 106/67 97
== END 2021-08-30 12:02 | disposition home or self-care (01) | DRG 455 ==
LOC: ED 13:36 → 3E 19:35

== ENCOUNTER 2025-04-07 09:53 | Inpatient (IN) ==
--- NOTE | 2025-04-07 10:17 | Emergency Department Note ---
History of Present Illness General Chief complaint: Back Injury/Pain Stated complaint: LEG WEAKNESS,EXTREME BACK PAIN Time Seen by Provider: 04/07/25 10:04 History of Present Illness Maximum Pain Intensity: 8 This is a 39-year-old female who presents to the emergency department via private vehicle with complaints of "low back pain, leg weakness". The patient notes over the past 2 to 3 months has had progressive issues in the left low back area with pain radiating down both legs, left greater than right. She notes associated leg numbness, intermittent feet cold sensation and intermittent color change to the lower extremities. The patient also notes as of recent that she has trouble knowing when she has to urinate therefore set an alarm every 2 hours to urinate. No incontinence recently. The patient denies any abdominal pain. No preceding or current illness. No fever. No dysuria. Patient notes history of L-spine surgery and per review of the EMR on 08/27/2021 the patient underwent lumbar decompression with bilateral medial fasciectomy's and foraminotomies L5-S1 as well as posterior spinal fusion L5-S1 and placement of posterior instrumentation with interbody fusion of L5-S1. There is also placement of titanium cage. This was secondary to diagnosis of lumbar disc herniation with lumbar retrolisthesis L5-S1 with right sided radiculopathy. Home Medications Medication Instructions Recorded Confirmed Type epinephrine 0.3 mg/0.3 mL 0.3 mg IM Q4H PRN Allergic Reaction 08/26/21 04/07/25 History injection, auto-injector multivitamin 1 tab PO DAILY 08/26/21 04/07/25 History calcium citrate 500 mg PO QAM 10/18/23 04/07/25 History omeprazole 20 mg capsule,delayed 20 mg PO QAM 10/18/23 04/07/25 History release sertraline 100 mg tablet (Zoloft) 100 mg PO QAM 10/18/23 04/07/25 History dextroamphetamine sulfate 15 mg 30 mg PO QAM 04/07/25 04/07/25 History capsule,extended release dextroamphetamine-amphetamine 10 10 mg PO QDL PRN Workload 04/07/25 04/07/25 History mg tablet sertraline 25 mg tablet (Zoloft) 25 mg PO QAM 04/07/25 04/07/25 History Allergies Allergy/AdvReac Type Severity Reaction Status Date / Time bupropion [From Wellbutrin] Allergy Severe Stroke Unverified 04/07/25 12:33 like symptoms bee venom protein (honey bee) Allergy Anaphylaxis Verified 04/07/25 12:33 latex Allergy Hives Verified 04/07/25 12:33 Past Med/Surg History Problem List (Updated 04/07/25 @ 16:58 by Prasanth Santana PA-C) Abnormal magnetic resonance imaging of lumbar spine (Acute) Lumbar radiculopathy (Acute) Medical History KEYSHA on CPAP Allergic rhinitis ADHD Anxiety Hypertension Migraine Migraines Hepatic steatosis Migraines Surgical History History of abdominoplasty History of breast augmentation History of lumbar fusion H/O section Status post laparoscopic hysterectomy H/O adenoidectomy H/O oophorectomy H/O sinus surgery Family History Grandfather Diabetes Social History Smoking Status: Never smoker Second Hand Exposure: No; Do You Dip or Chew Tobacco: No; Tobacco Cessation Education Requested by Patient: No Hx Alcohol Use: No Hx Substance Use: No Preferred Language: Barbadian Communication Ability: Effective Hand Booked Folder And Stitcher Required: No Beliefs That Will Affect Care: None marital status: Current Living Situation: Spouse How many Children do You have: 1 Other Information That Helps Us Care for You: No Feels Safe at Home: Yes Safety Concerns: Feels Safe At This Time Assistive Devices: Contacts Review of Systems A total of 10 systems reviewed and were otherwise negative Physical Exam Vital Signs Vital Signs - 24 hr 04/07/25 09:55 04/07/25 10:45 04/07/25 11:37 Temperature 36.7 C Temperature Source Temporal Artery Scan Pulse Rate 98 H 60 Pulse Rate [Radial] 63 Pulse Rate from SpO2 Sensor 60 Pulse Rhythm [Radial] Regular Respiratory Rate 18 16 14 Respiratory Effort / Characteristics Non-Labored Respiratory Depth Normal Respiratory Pattern Regular Blood Pressure 133/71 141/63 H Blood Pressure [Right Arm] 127/81 Blood Pressure Mean 91 96 Blood Pressure Mean [Right Arm] 96 Pulse Oximetry 100 100 99 Oxygen Delivery Method Room Air Room Air Sepsis Recent Fever Within 48 Hours No Sepsis New/Unexplained Change in Mental Status N/A Sepsis Action Taken by Nursing No Action Required 04/07/25 11:40 04/07/25 11:51 04/07/25 12:15 Temperature Temperature Source Pulse Rate 62 58 L Pulse Rate [Radial] Pulse Rate from SpO2 Sensor 60 Pulse Rhythm [Radial] Respiratory Rate 18 Respiratory Effort / Characteristics Respiratory Depth Respiratory Pattern Blood Pressure Blood Pressure [Right Arm] Blood Pressure Mean Blood Pressure Mean [Right Arm] Pulse Oximetry 100 96 Oxygen Delivery Method Room Air Sepsis Recent Fever Within 48 Hours Sepsis New/Unexplained Change in Mental Status Sepsis Action Taken by Nursing 04/07/25 13:00 Temperature Temperature Source Pulse Rate 58 L Pulse Rate [Radial] Pulse Rate from SpO2 Sensor 60 Pulse Rhythm [Radial] Respiratory Rate 16 Respiratory Effort / Characteristics Respiratory Depth Respiratory Pattern Blood Pressure 140/89 Blood Pressure [Right Arm] Blood Pressure Mean 116 Blood Pressure Mean [Right Arm] Pulse Oximetry 100 Oxygen Delivery Method Sepsis Recent Fever Within 48 Hours Sepsis New/Unexplained Change in Mental Status Sepsis Action Taken by Nursing VITAL SIGNS - Vital signs and nursing notes were reviewed. Stable and afebrile. GENERAL - 39-year-old female appearing her stated age who is in no acute distress. Communicates well with provider and answers questions appropriately. SKIN - Without rashes. No meningeal or petechial rash. The surgical incision vertically oriented overlying the inferior L-spine without any abnormal appearance. No dehiscence. No erythema. No edema. No crepitus HEAD - NC/AT. EYES - PERRL with EOMI bilaterally. Sclera anicteric. EARS - No deformities of external structures noted on gross examination bilaterally. No pain elicited with palpation of the tragus bilaterally. External auditory canals without discharge or otorrhea. Tympanic membranes pearly motley without retraction or bulging. No fluid or purulent material visualized behind the TM. Handle of malleus, umbo, cone of light, pars tensa/flaccid all easily visualized. NOSE - Midline and without cyanosis. No epistaxis or purulent drainage noted. Septum midline without deviation or septal hematoma noted. MOUTH/OROPHARYNX - Without perioral cyanosis. Buccal mucosa pink and moist and without leukoplakia. Tongue midline with equal elevation of palate bilaterally. No tonsillar hypertrophy, erythema, or exudates noted. Good dentition noted. NECK - Neck with FROM. No nuchal rigidity. LUNGS - Chest wall symmetric without accessory muscle use, intercostals retractions, or central cyanosis. Normal vesicular breath sounds CTA B/L. No wheezes, rales, or rhonchi appreciated. CARDIAC - RRR ABDOMEN - Abdominal contour normal without pulsations or visible masses. BS normoactive all four quadrants. No tenderness, palpable masses, hepatosplenomegaly, or ascites noted. EXTREMITIES - No clubbing or peripheral cyanosis. +5/5 strength noted in UE/LE bilaterally. NEUROLOGIC - Cranial nerves II through XII grossly intact. Bilateral patellar reflexes with hyperreflexia. MSKthere is no reproducible tenderness palpation overlying the L-spine region or paraspinous musculature. PSYCH -alert, oriented and pleasant on exam Course Administered Medications Hydromorphone HCl (Hydromorphone Inj 0.5 Mg/0.5 Ml Syr) 0.5 mg IV Q3H PRN PRN Reason: Pain Stop: 04/21/25 13:25 Last Admin: 04/07/25 15:47 Dose: 0.5 mg Documented By: VINICIO Dexamethasone 8 mg/ Syringe 2 mls @ 1 mls/min IV Q8H CARL Stop: 05/07/25 15:29 Last Admin: 04/07/25 15:54 Dose: 1 mls/min Documented By: VINICIO Tizanidine HCl (Tizanidine Hcl 4 Mg Tablet) 4 mg PO TID PRN PRN Reason: muscle spasms Stop: 05/07/25 20:59 Last Admin: 04/07/25 16:42 Dose: 4 mg Documented By: VINICIO Discontinued Medications Dexamethasone (Dexamethasone Sod Inj 4 Mg/Ml Vial) 4 mg IV Q8H CARL Stop: 05/07/25 13:29 Last Admin: 04/07/25 15:05 Dose: Not Given Documented By: DIANNE Hydromorphone HCl (Hydromorphone Inj 0.5 Mg/0.5 Ml Syr) 0.5 mg IV NOW STA Stop: 04/07/25 10:17 Last Admin: 04/07/25 10:36 Dose: 0.5 mg Documented By: MARY Hydromorphone HCl (Hydromorphone Inj 0.5 Mg/0.5 Ml Syr) 0.5 mg IV NOW STA Stop: 04/07/25 11:48 Last Admin: 04/07/25 11:56 Dose: 0.5 mg Documented By: DIANNE Acetaminophen (Ofirmev) 1,000 mg in 100 mls @ 400 mls/hr IV NOW STA Stop: 04/07/25 12:26 Last Infusion: 04/07/25 13:44 Dose: Infused Documented By: Admin: 04/07/25 12:18 Dose: 400 mls/hr Documented By: DIANNE Lidocaine (Lidocaine 5% 1 Patch) 1 patch TD NOW STA Stop: 04/07/25 11:48 Last Admin: 04/07/25 11:56 Dose: 1 patch Documented By: DIANNE Ondansetron HCl (Ondansetron Inj 2 Mg/Ml 2 Ml Vial) 4 mg IV NOW STA Stop: 04/07/25 10:17 Last Admin: 04/07/25 10:35 Dose: 4 mg Documented By: MARY Medical Decision Making Laboratory Data 04/07/25 10:30 04/07/25 10:30 Lab Results 04/07/25 04/07/25 Range/Units 10:30 11:37 WBC 8.89 (4.8-10.8) K/ul RBC 4.94 (4.20-5.40) M/uL Hgb 15.2 (12.0-16.0) g/dl Hct 46.2 (37.0-47.0) % MCV 93.5 (80.0-100.0) fL MCH 30.8 (25.0-34.0) pg MCHC 32.9 (32.0-36.0) g/dL RDW Std Deviation 42.9 (36.4-46.3) fL RDW Coeff of Clint 12.6 (11.5-14.5) % Plt Count 257 (130-400) K/uL MPV 11.0 (9.4-12.4) fL Immature Gran % (Auto) 0.4 % Neut % (Auto) 74.0 % Lymph % (Auto) 17.9 % [place] % (Auto) 4.8 % Eos % (Auto) 2.0 % Baso % (Auto) 0.9 % Neut # (Auto) 6.57 H (1.40-6.50) K/uL Lymph # (Auto) 1.59 (1.20-3.40) K/uL [place] # (Auto) 0.43 (0.11-0.59) K/uL Eos # (Auto) 0.18 (0.00-0.50) K/uL Baso # (Auto) 0.08 (0.00-0.20) K/uL Immature Gran # (Auto) 0.04 (0.01-0.20) K/uL PT 10.8 (9.0-12.0) Seconds INR 1.0 (0.9-1.1) APTT 27 (21-31) Seconds PTT Ratio 1.0 Sodium 142 (136-145) mmol/L Potassium 3.6 (3.5-5.1) mmol/L Chloride 107 (98-107) mmol/L Carbon Dioxide 29 (21-32) mmol/L Anion Gap 6 (3-11) BUN 19 (6-23) mg/dl Creatinine 0.93 (0.6-1.2) mg/dl Est Cr Clr Drug Dosing Not Reportable eGFR 81.18 BUN/Creatinine Ratio 20.4 H (10-20) Glucose 56 L (70-99(Fasting)) mg/dl Calcium 9.6 (8.6-10.3) mg/dl Total Bilirubin 0.5 (0.2-1.0) mg/dl AST 17 (13-39) U/L ALT 11 (7-52) U/L Alkaline Phosphatase 45 (34-104) U/L Total Protein 7.9 (6.0-8.3) gm/dl Albumin 4.7 (3.4-5.0) gm/dl Globulin 3.2 (2.5-4.0) gm/dl Albumin/Globulin Ratio 1.5 (0.9-2) Urine Color Yellow Urine Appearance Clear (Clear) Urine pH 6.0 (4.5-7.5) Ur Specific [place] 1.025 (1.000-1.030) Urine Protein Negative (Negative) Urine Glucose (UA) Negative (Negative) Urine Ketones Trace H (Negative) Urine Blood Negative (Negative) Urine Nitrite Negative (Negative) Urine Bilirubin Negative (Negative) Urine Urobilinogen Negative (Negative) Ur Leukocyte Esterase Negative (Negative) Urine Comment Imaging Data Radiologist's Impression: Lumbar Spine MRI 04/07/25 10:14 MRI OF THE LUMBAR SPINE WITHOUT CONTRAST CLINICAL HISTORY: Low back pain, leg weakness. COMPARISON STUDY: Lumbar spine MRI August 26, 2021. Lumbar spine fluoroscopic images August 28, 2021. TECHNIQUE: Utilizing a 1.5 Monet magnet and dedicated coil, multiplanar, multiecho imaging of the lumbar spine was performed without IV contrast. FINDINGS: For purposes of numbering on this exam, the L5-S1 disc space is assigned to axial image 15 of 16. There are no lumbar spine fractures. No marrow edema or marrow placement is present. There are postoperative findings consistent with L5-S1 decompression and fusion with interbody spacer placement. The conus terminates at the lower L1 level. Paravertebral soft tissues are unremarkable. L1-2: The central canal and neural foramen are patent. L2-3: There is mild disc space narrowing with minimal disc bulge. The findings have slightly progressed since MRI of August 26, 2021. Central canal neural foramen are patent L3-4: A small annular tear at tiny central disc protrusion is noted. The central canal and neural foramen are patent. L4-5: A moderate sized central/left paracentral disc extrusion with inferior subligamentous migration is developed since MRI of August 26, 2021. There is mild narrowing of the central canal and moderate narrowing of the left lateral recess with possible mass effect upon the descending left L5 nerve root. There is no neural foraminal stenosis. L5-S1: Expected postoperative findings are noted. There is no recurrent central canal or neural foraminal stenosis. IMPRESSION: 1. Expected findings following L5-S1 decompression and fusion. 2. Moderate-sized central/left paracentral disc extrusion with inferior subligamentous migration at L4-L5 which has developed since previous MRI. This results in mild central canal and moderate left lateral recess narrowing with possible mass effect upon the descending left L5 nerve root. 3. Otherwise, mild degenerative disc disease within the lumbar spine. ACT 112: Negative or not required by law. Electronically signed by: Jefry Ibrahim M.D. 04/07/2025 11:30 AM Lumbar Spine X-Ray 04/07/25 10:14 LUMBAR SPINE 5 VIEWS CLINICAL HISTORY: Low back pain. FINDINGS: 5 views of the lumbar spine are correlated with abdominal CT dated 10/24/2023 and MRI of lumbar spine dated 04/07/2025. The skeletal structures are well mineralized. There is no radiographic evidence of fracture or malalignment. Vertebral body height and alignment are maintained. There is minimal dextrocurvature centered at L3. There has been discectomy at L5-S1 with laminectomy and posterior fusion at this level. Interpedicular screws are in place. The orthopedic hardware appears intact. The transverse processes are grossly intact. There is no radiographic evidence of spondylolysis. The remaining disc spaces are maintained. The visualized bony pelvis appears intact. Mild sclerotic change is noted in the sacroiliac joints. There is a nonobstructed abdominal bowel gas pattern. IMPRESSION: 1. No acute bony abnormality is seen involving the lumbar spine. 2. Postsurgical changes above. ACT 112: Negative or not required by law. Electronically signed by: Johnathan Kaur M.D. 04/07/2025 11:41 AM MDM Narrative Patient was seen and evaluated as above in room C06. Review was performed of triage nursing notes and vital signs. I did review pertinent previous visits and patient history. After obtaining a thorough history and physical examination the above work up was performed. Patient presents to us today for evaluation of low back pain radiating down left greater than right leg with associated subjective leg weakness. The patient does appear to be in pain on examination. Patient does have hyperreflexia in the patellar reflexes bilaterally. Bladder scan was performed and no evidence of retained urine. Options of care were discussed with the patient. IV access was established labs were drawn. I do believe an MRI of the L-spine at this time is warranted. I also ordered L-spine x-ray. Patient was medicated here with IV Dilaudid for pain, Zofran for nausea. I did confirm with RN that patient tolerated Dilaudid well and had O2 sat 100% prior to going to MRI. Patient is not requiring supplemental O2 at this time. Labs reveal no leukocytosis or concerning anemia. Coags normal. No emergent metabolic disturbance. There was hyperglycemia noted at 56 and the patient was given oral cranberry juice. Urinalysis does not suggest infection. X-ray of the L-spine and MRI of the L-spine were performed and are as above. 11:02 AM: I did call and speak with machine packaging technician. Patient overall doing well in the MRI scanner. MRI resulted and there is a moderate size central/left paracentral disc extrusion with inferior subligamentous migration at L4-L5 which has developed since previous MRI per radiologist as above. This results in mild central canal and moderate left lateral recess narrowing with possible mass effect upon the descending left L5 nerve root. As the patient did have L spine surgery previously here with Dr. Fitzgerald, I did have staff page that service at 11:50am. At this time I do believe that further evaluation and management in the inpatient setting is warranted. Case discussed with the hospitalist service. Please refer to further documentation regarding her stay GCS: 15 In the evaluation and treatment of this patient the following differential diagnoses were entertained: Cauda equina syndrome, lumbar spine fracture, subluxation, contusion, sprain, strain, intra-abdominal etiology, UTI, pyelonephritis, among others. Impression & Plan Lumbar radiculopathy, Abnormal magnetic resonance imaging of lumbar spine Discharge Plan Visit Data Chief Complaint: Back Injury/Pain Stated Complaint: LEG WEAKNESS,EXTREME BACK PAIN ED Provider: Marcie Soto ED Midlevel Provider: Prasanth Santana Discharge Problem: Lumbar radiculopathy, Abnormal magnetic resonance imaging of lumbar spine Patient Disposition: Admitted As Inpatient Condition: Good Discharge Instructions Interventions: ED Discharge Assessment Last Done: 04/07/25 15:06
[2025-04-07] MEDS: ONDANSETRON INJ 2 MG/ML 2 ML VIAL IV STA (10:35)
[2025-04-07] MEDS: HYDROmorphone INJ 0.5 MG/0.5 ML SYR IV STA ×2 (10:36→11:56)
[2025-04-07 10:53] LABS: Hematocrit (blood only) 46.2 % (37.0-47.0); Hemoglobin 15.2 g/dl (12.0-16.0); Immature Granulocytes # (auto) 0.04 K/uL (0.01-0.20); Immature Granulocytes % (auto) 0.4 %; Mean Corpuscular Hemoglobin 30.8 pg (25.0-34.0); Mean Corpuscular Volume 93.5 fL (80.0-100.0); Platelet Count 257 K/uL (130-400); RDW Standard Deviation 42.9 fL (36.4-46.3); Red Blood Count 4.94 M/uL (4.20-5.40); White Blood Count 8.89 K/ul (4.8-10.8)
[2025-04-07 11:14] LABS: Alanine Aminotransferase 11 U/L (7-52); Albumin Globulin Ratio 1.5 (0.9-2); Alkaline Phosphatase 45 U/L (34-104); Anion Gap 6 (3-11); Bilirubin,Total 0.5 mg/dl (0.2-1.0); Blood Urea Nitrogen 19 mg/dl (6-23); Calcium 9.6 mg/dl (8.6-10.3); Carbon Dioxide 29 mmol/L (21-32); Chloride 107 mmol/L (98-107); Globulin 3.2 gm/dl (2.5-4.0); Glucose 56 mg/dl (70-99(Fasting)); Potassium 3.6 mmol/L (3.5-5.1); Sodium 142 mmol/L (136-145); Total Protein 7.9 gm/dl (6.0-8.3)
--- NOTE | 2025-04-07 11:31 | Magnetic Resonance Report ---
MRI OF THE LUMBAR SPINE WITHOUT CONTRAST CLINICAL HISTORY: Low back pain, leg weakness. COMPARISON STUDY: Lumbar spine MRI August 26, 2021. Lumbar spine fluoroscopic images August 28. TECHNIQUE: Utilizing a 1.5 Monet magnet and dedicated coil, multiplanar, multiecho imaging of the [facility] spine was performed without IV contrast. FINDINGS: For purposes of numbering on this exam, the L5-S1 disc space is assigned to axial image 15 of 16. The re are no lumbar spine fractures. No marrow edema or marrow placement is present. There are postopera tive findings consistent with L5-S1 decompression and fusion with interbody spacer placement. The con us terminates at the lower L1 level. Paravertebral soft tissues are unremarkable. L1-2: The central canal and neural foramen are patent. L2-3: There is mild disc space narrowing with minimal disc bulge. The findings have slightly progress ed since MRI of August 26, 2021. Central canal neural foramen are patent L3-4: A small annular tear at tiny central disc protrusion is noted. The central canal and neural for amen are patent. L4-5: A moderate sized central/left paracentral disc extrusion with inferior subligamentous migration is developed since MRI of August 26, 2021. There is mild narrowing of the central canal and modera te narrowing of the left lateral recess with possible mass effect upon the descending left L5 nerve r oot. There is no neural foraminal stenosis. L5-S1: Expected postoperative findings are noted. There is no recurrent central canal or neural clare inal stenosis. IMPRESSION: 1. Expected findings following L5-S1 decompression and fusion. 2. Moderate-sized central/left paracentral disc extrusion with inferior subligamentous migration at L 4-L5 which has developed since previous MRI. This results in mild central canal and moderate left lat eral recess narrowing with possible mass effect upon the descending left L5 nerve root. 3. Otherwise, mild degenerative disc disease within the lumbar spine. ACT 112: Negative or not required by law. Electronically signed by: Jefry Ibrahim M.D. 04/07/2025 11:30 AM
[2025-04-07 11:41] LABS: INR 1.0 (0.9-1.1); Partial Thromboplastin Time 27 Seconds (21-31); Prothrombin Time 10.8 Seconds (9.0-12.0)
--- NOTE | 2025-04-07 11:42 | XRay Report ---
LUMBAR SPINE 5 VIEWS CLINICAL HISTORY: Low back pain. FINDINGS: 5 views of the lumbar spine are correlated with abdominal CT dated 10/24/2023 and MRI of jenny mbar spine dated 04/07/2025. The skeletal structures are well mineralized. There is no radiographic ev idence of fracture or malalignment. Vertebral body height and alignment are maintained. There is mini mal dextrocurvature centered at L3. There has been discectomy at L5-S1 with laminectomy and posterior fusion at this level. Interpedicular screws are in place. The orthopedic hardware appears intact. Th e transverse processes are grossly intact. There is no radiographic evidence of spondylolysis. The re maining disc spaces are maintained. The visualized bony pelvis appears intact. Mild sclerotic change is noted in the sacroiliac joints. There is a nonobstructed abdominal bowel gas pattern. IMPRESSION: 1. No acute bony abnormality is seen involving the lumbar spine. 2. Postsurgical changes above. ACT 112: Negative or not required by law. Electronically signed by: Johnathan Kaur M.D. 04/07/2025 11:41 AM
[2025-04-07] MEDS: LIDOCAINE 5% 1 PATCH TD STA (11:56)
[2025-04-07 12:05] LABS: Appearance Urine Clear (Clear); Glucose Urine UA Negative (Negative)
[2025-04-07] MEDS: ACETAMINOPHEN 1,000 MG/100 ML VIAL IV STA (12:18)
--- NOTE | 2025-04-07 12:37 | History & Physical Report ---
Date of Service April 07, 2025 Assessment & Plan (1) Lumbar radiculopathy: (2) KEYSHA on CPAP: (3) ADHD: (4) Anxiety: (5) Hypertension: (6) Migraine: Plan The patient is a 39-year-old female who presents to the ED on 04/07/2025 with complaints of worsening bilateral lower extremity weakness left greater than right, has a history of lumbar surgery and currently being worked up for MS Lumbar radiculopathy L4-L5 disc extrusion Hx L5-S1 decompression and fusion: Decreased sensation and strength in bilateral lower extremities, L>R Lumbar MRI shows no L4-L5 disc extrusion, possible mass effect on L5 nerve root Dilaudid for pain control, IV Decadron, consult [facility]osp[facility], known to Dr. Fitzgerald PT/OT, check ABIs, continue to monitor Optic neuritis Possible MS Neuropathy, tremors, weakness all noted Following with neurology outpatient, will check head MRI/cervical spine/thoracic spine to monitor for MS lesions Reports autoimmune workup outpatient was negative, vitamin B12 injections every 3 months Hx ADHD/anxiety: Continue home Zoloft and Adderall Hx KEYSHA on CPAP: CPAP at bedtime A total of 60 minutes was spent on chart review/reviewing diagnostic data/disc ussion with consultants/facilitating plan of care Full code DVT prophylaxis: SCDs History of Present Illness Chief Complaint: Lower back pain/numbness Primary Care Provider: NO PCP The patient is a 39-year-old female with a past medical history of HTN, anxiety, GERD, L-spine surgery- 08/27/2021 the patient underwent lumbar decompression with bilateral medial fasciectomy's and foraminotomies L5-S1 as well as posterior spinal fusion L5-S1 and placement of posterior instrumentation with interbody fusion of L5-S1 with placement of titanium cage secondary to lumbar disc herniation and lumbar radiculopathy who presents to the ED on 04/07/2025 with complaints of lower back pain and leg weakness. Reported over the past 2-3 months progressive lower back pain radiating down both legs. Also reported leg numbness/color changing to lower extremities and numbness in the feet. Patient has also complained of the inability to know when she needs to urinate and having to set an alarm every 2 hours to urinate without incontinence. Patient also reports ongoing workup for possible MS. Continued issues with bilateral lower extremity weakness. Also reports some issues with vision in the left eye thought to be optic neuritis. Reports bilateral lower extremity neuropathy that has worsened. Also reports leg cramping and tremors. Denies any chest pain or shortness of breath. Denies any nausea/vomiting/diarrhea/abdominal pain. Samson es any fever/chills. On arrival to the ED, labs fairly unremarkable, glucose mildly low at 56, urinalysis negative Lumbar x-ray negative Lumbar spine MRI showed: 1. Expected findings following L5-S1 decompression and fusion. 2. Moderate-sized central/left paracentral disc extrusion with inferior subligamentous migration at L4-L5 which has developed since previous MRI. This results in mild central canal and moderate left lateral recess narrowing with possible mass effect upon the descending left L5 nerve root. 3. Otherwise, mild degenerative disc disease within the lumbar spine. The patient will be admitted for further management of lower back pain and disc extrusion Allergies Allergy/AdvReac Type Severity Reaction Status Date / Time bupropion [From Wellbutrin] Allergy Severe Stroke Unverified 04/07/25 12:33 like symptoms bee venom protein (honey bee) Allergy Anaphylaxis Verified 04/07/25 12:33 latex Allergy Hives Verified 04/07/25 12:33 Home Medications Medication Instructions Recorded Confirmed Type epinephrine 0.3 mg/0.3 mL 0.3 mg IM Q4H PRN Allergic Reaction 08/26/21 04/07/25 History injection, auto-injector multivitamin 1 tab PO DAILY 08/26/21 04/07/25 History calcium citrate 500 mg PO QAM 10/18/23 04/07/25 History omeprazole 20 mg capsule,delayed 20 mg PO QAM 10/18/23 04/07/25 History release sertraline 100 mg tablet (Zoloft) 100 mg PO QAM 10/18/23 04/07/25 History dextroamphetamine sulfate 15 mg 30 mg PO QAM 04/07/25 04/07/25 History capsule,extended release dextroamphetamine-amphetamine 10 10 mg PO QDL PRN Workload 04/07/25 04/07/25 History mg tablet sertraline 25 mg tablet (Zoloft) 25 mg PO QAM 04/07/25 04/07/25 History Past Med/Surg History Problem List (Updated 04/07/25 @ 11:11 by Prasanth W Bamat, PA-C) Lumbar radiculopathy (Acute) Medical History KEYSHA on CPAP Allergic rhinitis ADHD Anxiety Hypertension Migraine Migraines Hepatic steatosis Migraines Surgical History History of abdominoplasty History of breast augmentation History of lumbar fusion H/O section Status post laparoscopic hysterectomy H/O adenoidectomy H/O oophorectomy H/O sinus surgery Family History Grandfather Diabetes Social History Smoking Status: Never smoker Hx Alcohol Use: No Hx Substance Use: No Preferred Language: American Communication Ability: Effective Management Technician Required: No Beliefs That Will Affect Care: None marital status: Current Living Situation: Spouse How many Children do You have: 1 Feels Safe at Home: Yes Assistive Devices: None Review of Systems Review of Systems: All systems reviewed & are unremarkable except as noted in HPI & below Physical Exam Constitutional: WD/WN, vitals as above Eyes: PERRL, conjunctivae normal, anicteric sclerae (Reports left eye blurriness) ENMT: external ear and nose normal, oropharynx normal Neck: trachea midline, no thyromegaly Respiratory: normal respiratory effort, lungs clear to auscultation Cardiovascular: RRR, no murmur, no edema Gastrointestinal (Abdomen): normal bowel sounds, soft, nontender, no hepatosplenomegaly Musculoskeletal: no cyanosis or clubbing, extremities motor strength 5/5 (B/L LE weakness, left greater than right, decreased sensation) Skin: no rashes, warm and dry Neurologic: PERRL, EOMI, accommodation nl, no face palsy, no dysarthria (Decreased sensation to bilateral lower extremities, bilateral leg weakness) Psychiatric: A+Ox3, euthymic affect Lymphatic: no cervical or axillary lymphadenopathy Results & Data Results & Data Vital Signs (Past 12 Hours) Vital Signs Temp Pulse Pulse Resp BP BP Pulse Ox 04/07/25 12:15 58 L 04/07/25 11:51 62 18 96 04/07/25 11:40 100 04/07/25 11:37 60 14 141/63 H 99 04/07/25 10:45 63 16 127/81 100 04/07/25 09:55 36.7 C 98 H 18 133/71 100 O2 Del Method 04/07/25 12:15 04/07/25 11:51 04/07/25 11:40 Room Air 04/07/25 11:37 04/07/25 10:45 Room Air 04/07/25 09:55 Room Air Diagnostic Findings Laboratory Results WBC 8.89 K/ul (4.8-10.8) 04/07/25 10:30 RBC 4.94 M/uL (4.20-5.40) 04/07/25 10:30 Hgb 15.2 g/dl (12.0-16.0) 04/07/25 10:30 Hct 46.2 % (37.0-47.0) 04/07/25 10:30 MCV 93.5 fL (80.0-100.0) 04/07/25 10:30 MCH 30.8 pg (25.0-34.0) 04/07/25 10:30 MCHC 32.9 g/dL (32.0-36.0) 04/07/25 10:30 RDW Std Deviation 42.9 fL (36.4-46.3) 04/07/25 10:30 RDW Coeff of Clint 12.6 % (11.5-14.5) 04/07/25 10:30 Plt Count 257 K/uL (130-400) 04/07/25 10:30 MPV 11.0 fL (9.4-12.4) 04/07/25 10:30 Immature Gran % (Auto) 0.4 % 04/07/25 10:30 Neut % (Auto) 74.0 % 04/07/25 10:30 Lymph % (Auto) 17.9 % 04/07/25 10:30 [place] % (Auto) 4.8 % 04/07/25 10:30 Eos % (Auto) 2.0 % 04/07/25 10:30 Baso % (Auto) 0.9 % 04/07/25 10:30 Neut # (Auto) 6.57 K/uL (1.40-6.50) H 04/07/25 10:30 Lymph # (Auto) 1.59 K/uL (1.20-3.40) 04/07/25 10:30 [place] # (Auto) 0.43 K/uL (0.11-0.59) 04/07/25 10:30 Eos # (Auto) 0.18 K/uL (0.00-0.50) 04/07/25 10:30 Baso # (Auto) 0.08 K/uL (0.00-0.20) 04/07/25 10:30 Immature Gran # (Auto) 0.04 K/uL (0.01-0.20) 04/07/25 10:30 PT 10.8 Seconds (9.0-12.0) 04/07/25 10:30 INR 1.0 (0.9-1.1) 04/07/25 10:30 APTT 27 Seconds (21-31) 04/07/25 10:30 PTT Ratio 1.0 04/07/25 10:30 Sodium 142 mmol/L (136-145) 04/07/25 10:30 Potassium 3.6 mmol/L (3.5-5.1) 04/07/25 10:30 Chloride 107 mmol/L (98-107) 04/07/25 10:30 Carbon Dioxide 29 mmol/L (21-32) 04/07/25 10:30 Anion Gap 6 (3-11) 04/07/25 10:30 BUN 19 mg/dl (6-23) 04/07/25 10:30 Creatinine 0.93 mg/dl (0.6-1.2) 04/07/25 10:30 Est Cr Clr Drug Dosing Not Reportable 04/07/25 10:30 eGFR 81.18 04/07/25 10:30 BUN/Creatinine Ratio 20.4 (10-20) H 04/07/25 10:30 Glucose 56 mg/dl (70-99(Fasting)) L 04/07/25 10:30 Calcium 9.6 mg/dl (8.6-10.3) 04/07/25 10:30 Total Bilirubin 0.5 mg/dl (0.2-1.0) 04/07/25 10:30 AST 17 U/L (13-39) 04/07/25 10:30 ALT 11 U/L (7-52) 04/07/25 10:30 Alkaline Phosphatase 45 U/L (34-104) 04/07/25 10:30 Total Protein 7.9 gm/dl (6.0-8.3) 04/07/25 10:30 Albumin 4.7 gm/dl (3.4-5.0) 04/07/25 10:30 Globulin 3.2 gm/dl (2.5-4.0) 04/07/25 10:30 Albumin/Globulin Ratio 1.5 (0.9-2) 04/07/25 10:30 Urine Color Yellow 04/07/25 11:37 Urine Appearance Clear (Clear) 04/07/25 11:37 Urine pH 6.0 (4.5-7.5) 04/07/25 11:37 Ur Specific [place] 1.025 (1.000-1.030) 04/07/25 11:37 Urine Protein Negative (Negative) 04/07/25 11:37 Urine Glucose (UA) Negative (Negative) 04/07/25 11:37 Urine Ketones Trace (Negative) H 04/07/25 11:37 Urine Blood Negative (Negative) 04/07/25 11:37 Urine Nitrite Negative (Negative) 04/07/25 11:37 Urine Bilirubin Negative (Negative) 04/07/25 11:37 Urine Urobilinogen Negative (Negative) 04/07/25 11:37 Ur Leukocyte Esterase Negative (Negative) 04/07/25 11:37 Urine Comment 04/07/25 11:37 Impressions Lumbar Spine MRI 04/07/25 10:14 MRI OF THE LUMBAR SPINE WITHOUT CONTRAST CLINICAL HISTORY: Low back pain, leg weakness. COMPARISON STUDY: Lumbar spine MRI August 26, 2021. Lumbar spine fluoroscopic images August 28, 2021. TECHNIQUE: Utilizing a 1.5 Monet magnet and dedicated coil, multiplanar, multiecho imaging of the lumbar spine was performed without IV contrast. FINDINGS: For purposes of numbering on this exam, the L5-S1 disc space is assigned to axial image 15 of 16. There are no lumbar spine fractures. No marrow edema or marrow placement is present. There are postoperative findings consistent with L5-S1 decompression and fusion with interbody spacer placement. The conus terminates at the lower L1 level. Paravertebral soft tissues are unremarkable. L1-2: The central canal and neural foramen are patent. L2-3: There is mild disc space narrowing with minimal disc bulge. The findings have slightly progressed since MRI of August 26, 2021. Central canal neural foramen are patent L3-4: A small annular tear at tiny central disc protrusion is noted. The central canal and neural foramen are patent. L4-5: A moderate sized central/left paracentral disc extrusion with inferior subligamentous migration is developed since MRI of August 26, 2021. There is mild narrowing of the central canal and moderate narrowing of the left lateral recess with possible mass effect upon the descending left L5 nerve root. There is no neural foraminal stenosis. L5-S1: Expected postoperative findings are noted. There is no recurrent central canal or neural foraminal stenosis. IMPRESSION: 1. Expected findings following L5-S1 decompression and fusion. 2. Moderate-sized central/left paracentral disc extrusion with inferior subligamentous migration at L4-L5 which has developed since previous MRI. This results in mild central canal and moderate left lateral recess narrowing with possible mass effect upon the descending left L5 nerve root. 3. Otherwise, mild degenerative disc disease within the lumbar spine. ACT 112: Negative or not required by law. Electronically signed by: Jefry Ibrahim M.D. 04/07/2025 11:30 AM Lumbar Spine X-Ray 04/07/25 10:14 LUMBAR SPINE 5 VIEWS CLINICAL HISTORY: Low back pain. FINDINGS: 5 views of the lumbar spine are correlated with abdominal CT dated 10/24/2023 and MRI of lumbar spine dated 04/07/2025. The skeletal structures are well mineralized. There is no radiographic evidence of fracture or malalignment. Vertebral body height and alignment are maintained. There is minimal dextrocurvature centered at L3. There has been discectomy at L5-S1 with laminectomy and posterior fusion at this level. Interpedicular screws are in place. The orthopedic hardware appears intact. The transverse processes are grossly intact. There is no radiographic evidence of spondylolysis. The remaining disc spaces are maintained. The visualized bony pelvis appears intact. Mild sclerotic change is noted in the sacroiliac joints. There is a nonobstructed abdominal bowel gas pattern. IMPRESSION: 1. No acute bony abnormality is seen involving the lumbar spine. 2. Postsurgical changes above. ACT 112: Negative or not required by law. Electronically signed by: Johnathan Kaur M.D. 04/07/2025 11:41 AM Supervising Physician Co-Signing Physician Notes Attending Addendum: Case reviewed with the advanced practitioner. I have personally performed a history and physical examination on the patient. I have reviewed the advanced practitioner's documentation on the date of service referenced in note, and I agree with, and take responsibility for the plan of care. please refer to her notes for full details patient seen and examined, records reviewed by myself as well on exam, patient seen resting in bed, not in distress IV Dilaudid x 2 doses given, providing some relief has severe BL L>R LE pain with minimal movement denies LE numbness reports urinary retention no other symptoms VS noted and reviewed oriented x 3, not in distress, speaks in sentences with no effort nor accessory muscle use normal rate, regular rhythm, no murmurs clear breath sounds bilaterally non distended, soft, nontender no bipedal edema, erythema, warmth (+) straight leg test BL no gross focal neuro deficits all labs, imaging noted and reviewed ASSESSMENT AND PLAN> L4-L5 Disc Herniation L5 Nerve Root Compression History of Lumbar Decompression L[place] [address] Vance Fitzgerald - Decadron 4mg IV q8h PRN Dilaudid Dr Fitzgerald consulted [facility] OPTIC NEURITIS R/O MS - having visual symptoms- blurriness, L eye recently evaluated by Resource Engineer and Neurologist- MS work up underway will order MRI brain, etc while admitted other diagnoses and plan of care as per advanced practitioner's notes I spent a total of 40 minutes coordinating, documenting, and providing care for this patient, excluding time spent in the performance of separately billed services or time spent by another provider/QHP. Ruperto Mars MD
[2025-04-07] MEDS: DEXAMETHASONE SOD INJ 4 MG/ML VIAL IV SCH (15:05)
[2025-04-07] MEDS ORDERED: DEXAMETHASONE SOD INJ 4 MG/ML VIAL IV STA (15:13)
[2025-04-07] MEDS: HYDROmorphone INJ 0.5 MG/0.5 ML SYR IV PRN (15:47)
[2025-04-07] MEDS: dexAMETHasone 8 MG in SYRINGE 0 ML IV SCH (15:54)
--- NOTE | 2025-04-07 15:57 | Ultrasound Report ---
ULTRASOUND ANKLE BRACHIAL INDICES CLINICAL HISTORY: Peripheral arterial disease. COMPARISON STUDY: No priors. FINDINGS: Ankle brachial indices were assessed and ultrasound. Right brachial pressure measures 130 a nd left brachial pressure measured 147. Pressures in the right posterior tibial artery measured 144 f or an JORGE of 0.98 and pressures in the right dorsalis pedis measure 131 for an JORGE 0.89. Pressures in the left posterior tibial artery measure 143 for an JORGE of 0.97 impression exam the left dorsalis pedis measure 111 for an JORGE of 0.76. IMPRESSION: Ankle-brachial indices as above. Electronically signed by: Johnathan Kaur M.D. 04/07/2025 3:55 PM
[2025-04-07] MEDS: LORazepam 0.5 MG TAB PO PRN (17:13)
--- NOTE | 2025-04-07 18:04 | XRay Report ---
Technique: 3 views of the lumbar spine are submitted for review Findings: There is scoliosis. No fracture is identified. There is an anterior and posterior fusion of L5 and S1 with posterior fixation rods and pedicle screws and prosthetic disc placement. There is no definite sign of instrumentation failure. There is disc space narrowing from L2-3 through L4-5. No focal osseous lesion is seen. There is constipation. Impression: 1. L5-S1 fusion 2. Degenerative disc disease from L2-3 through L4-5 3. Scoliosis Electronically signed by Guzman Rodriguez 04-07-2025 5:56 PM
[2025-04-07] MEDS: REMOVE LIDODERM PATCH SCH (19:58)
[2025-04-07] MEDS: GADOBUTROL 65ML VIAL IV ONE (21:24)
[2025-04-07] MEDS: DOCUSATE SODIUM 100 MG CAP PO SCH (21:42)
[2025-04-07] MEDS: ACETAMINOPHEN 325 MG TAB PO PRN (21:48)
[2025-04-07] MEDS ORDERED: DEXAMETHASONE SOD INJ 4 MG/ML VIAL IV SCH (23:00)
--- NOTE | 2025-04-08 00:59 | Magnetic Resonance Report ---
Exam(s): MRI T SPINE W/WO Contrast IV Amt: 7.3mL Gadavist given existing IV EXAM: MR Thoracic Spine Without and With Intravenous Contrast CLINICAL HISTORY: Reason for exam: r/o ms. TECHNIQUE: Magnetic resonance images of the thoracic spine without and with intravenous contrast in multiple planes. CONTRAST: Patient received 7.3mL Gadavist given existing IV of IV contrast COMPARISON: No relevant prior studies available. FINDINGS: Vertebrae: There are 12 thoracic type vertebral bodies with a normal thoracic kyphosis. There is normal vertebral body height and alignment. The bone marrow signal is normal. No acute fracture. Discs/spinal canal/neural foramina: No acute findings. No significant disc disease. No spinal canal stenosis. Spinal cord: Unremarkable. Normal signal. No abnormal enhancement. Soft tissues: Unremarkable. IMPRESSION: Negative MRI of the thoracic spine. No evidence of demyelinating disease. Electronically signed by: Jennifer Powell MD 04/08/25 00:58 AM
[2025-04-08 06:26] LABS: Hematocrit (blood only) 44.5 % (37.0-47.0); Hemoglobin 14.6 g/dl (12.0-16.0); Mean Corpuscular Hemoglobin 30.5 pg (25.0-34.0); Mean Corpuscular Volume 93.1 fL (80.0-100.0); Platelet Count 265 K/uL (130-400); RDW Standard Deviation 42.5 fL (36.4-46.3); Red Blood Count 4.78 M/uL (4.20-5.40); White Blood Count 12.37 K/ul (4.8-10.8)
[2025-04-08 06:44] LABS: Alanine Aminotransferase 11.0 U/L (7-52); Albumin Globulin Ratio 1.4 (0.9-2); Alkaline Phosphatase 42.0 U/L (34-104); Anion Gap 7.0 (3-11); Bilirubin,Total 0.5 mg/dl (0.2-1.0); Blood Urea Nitrogen 16.0 mg/dl (6-23); Calcium 9.5 mg/dl (8.6-10.3); Carbon Dioxide 29.0 mmol/L (21-32); Chloride 104.0 mmol/L (98-107); Creatinine Clr Calc Pharmacy 115.4 ml/min; Globulin 3.0 gm/dl (2.5-4.0); Glucose 112.0 mg/dl (70-99(Fasting)); Potassium 4.2 mmol/L (3.5-5.1); Sodium 140.0 mmol/L (136-145); Total Protein 7.3 gm/dl (6.0-8.3)
[2025-04-08] MEDS: SERTRALINE HCL 100 MG TABLET PO SCH (07:25)
[2025-04-08] MEDS: SERTRALINE HCL 50 MG TABLET PO SCH (07:25)
--- NOTE | 2025-04-08 08:47 | Orthopedic Consultation ---
Date of Consultation April 08, 2025 Assessment & Plan (1) Lumbar radiculopathy: MRI lumbar spine available for review demonstrates evidence of solid fusion L5- S1. There is a disc herniation at L4-L5 with a fragment migrating caudally on the left undoubtedly contributing to her radiculopathy on the left lower extremity. X-rays however demonstrate the adjacent level to be well-maintained and no loss of alignment with standing. Plan at this point I would recommend at least an attempted epidural injections to see if we can address her radicular pain. Ideally we would avoid surgery if possible. Ultimately she would require at minimum laminectomy partial discectomy L4-5 on the left. We will of course await the remainder of her workup to include an MRI of the brain and neck. History of Present Illness Reason for Consultation: Back and left leg pain Attending Physician: Fab Morris MD History of Present Illness This is a very pleasant 39-year-old female who presents to the emergency room last evening with multiple medical concerns. She is noticing numbness tingling strength deficits to the upper extremities and bilateral lower extremities. She describes her radicular pain down the left lower extremity. This has been present for several months. She denies any precipitating trauma fall or event. Of note she has a very stressful work environment. Allergies Allergy/AdvReac Type Severity Reaction Status Date / Time bupropion [From Wellbutrin] Allergy Severe Stroke Unverified 04/07/25 12:33 like symptoms bee venom protein (honey bee) Allergy Anaphylaxis Verified 04/07/25 12:33 latex Allergy Hives Verified 04/07/25 12:33 Home Medications Medication Instructions Recorded Confirmed Type epinephrine 0.3 mg/0.3 mL 0.3 mg IM Q4H PRN Allergic Reaction 08/26/21 04/07/25 History injection, auto-injector multivitamin 1 tab PO DAILY 08/26/21 04/07/25 History calcium citrate 500 mg PO QAM 10/18/23 04/07/25 History omeprazole 20 mg capsule,delayed 20 mg PO QAM 10/18/23 04/07/25 History release sertraline 100 mg tablet (Zoloft) 100 mg PO QAM 10/18/23 04/07/25 History dextroamphetamine sulfate 15 mg 30 mg PO QAM 04/07/25 04/07/25 History capsule,extended release dextroamphetamine-amphetamine 10 10 mg PO QDL PRN Workload 04/07/25 04/07/25 History mg tablet sertraline 25 mg tablet (Zoloft) 25 mg PO QAM 04/07/25 04/07/25 History Patient History Medical History KEYSHA on CPAP Allergic rhinitis ADHD Anxiety Hypertension Migraine Migraines Hepatic steatosis Migraines Surgical History History of abdominoplasty History of breast augmentation History of lumbar fusion H/O section Status post laparoscopic hysterectomy H/O adenoidectomy H/O oophorectomy H/O sinus surgery Family History Grandfather Diabetes Social History Smoking Status: Never smoker Second Hand Exposure: No; Do You Dip or Chew Tobacco: No; Tobacco Cessation Education Requested by Patient: No Hx Alcohol Use: No Hx Substance Use: No Preferred Language: Tongan Communication Ability: Effective Associate Engineer Required: No Beliefs That Will Affect Care: None marital status: Current Living Situation: Spouse How many Children do You have: 1 Other Information That Helps Us Care for You: No Feels Safe at Home: Yes Safety Concerns: Feels Safe At This Time Assistive Devices: Contacts Physical Exam Physical Exam: Patient is currently in bed. She appears comfortable. She does exhibit strength deficits to dorsiflexion extensor houses longus on the left with a 5/5 on the right. Sensory is intact. Tension signs on the left. Results & Data Vital Signs (Past 12 Hours) Vital Signs Temp Pulse Resp BP Pulse Ox O2 Del Method 04/08/25 06:55 36.6 C 70 16 120/76 99 Room Air
[2025-04-08] MEDS ORDERED: NON-FORMULARY MEDICATION (Calcium Citrate 250 mg calcium Tablet) PO SCH (09:00)
[2025-04-08] MEDS: diazePAM 5 MG/ML 10ML VIAL IV ONE (10:37)
--- NOTE | 2025-04-08 12:15 | Hospitalist Progress Note ---
Date of Service April 08, 2025 Assessment & Plan (1) Lumbar radiculopathy: (2) KEYSHA on CPAP: (3) ADHD: (4) Anxiety: (5) Hypertension: (6) Migraine: Plan The patient is a 39-year-old female who presents to the ED on 04/07/2025 with complaints of worsening bilateral lower extremity weakness left greater than right, has a history of lumbar surgery and currently being worked up for MS Lumbar radiculopathy L4-L5 disc extrusion Hx L5-S1 decompression and fusion: Decreased sensation and strength in bilateral lower extremities, L>R Lumbar MRI shows no L4-L5 disc extrusion, possible mass effect on L5 nerve root Dilaudid for pain control, IV Decadron (leukocytosis 12.37 likely 2/2 steroids) Thoracic MRI negative for demyelinating disease [facility] saw pt; hopeful to trial at least epidural for relief; likely laminectomy with discectomy recommended PT/OT, JORGE's normal Optic neuritis Possible MS Neuropathy, tremors, generalized weakness; worse in lower extremities Following with neurology OPT with [facility] MRI/cervical spine results: 1. No spinal cord abnormal signal areas. 2. Mild neck muscle spasm. 3. Cervical spine spondylodegenerative changes. 4. Multilevel cervical disc bulge and osteophyte complexes are more evident at C5-C6 and C6- C7. Brain MRI: 1. Faint tiny bilateral smita-trigonal high T2/FLAIR signal foci, single focus on each side, with no enhancement or diffusion restriction. could be non-specific, yet Multiple sclerosis could not be ruled out, CSF analysis along with follow-up are needed. 2. Newly seen mild left maxillary and ethmoidal sinusitis. Reports autoimmune workup outpatient was negative, vitamin B12 injections every 3 months Recommend continuation of autoimmune work up as an outpatient, including possible LP for CSF analysis as outlined above Hx ADHD/anxiety: Continue home Zoloft and Adderall Hx KEYSHA on CPAP: CPAP at bedtime Sinusitis: Identified on brain MRI WBC 12.37; likely from steroids No maxillary or frontal sinus pressure No cough or residual nasal s/s Likely chronic Code Status: Full code DVT prophylaxis: SCDs I spent a total of 58 minutes coordinating, documenting, and providing care for this patient excluding time spent in the performance of separately billed services or time spent by another provider/QHP. Admission and Anticipated Discharge Date Admission Date: April 07, 2025 Supervising Physician Co-Signing Physician Notes Patient is seen and examined at bedside. Reports multiple symptoms which have been ongoing for many weeks to months. Patient admits to having worsening sciatic pain associated with numbness, tingling associated with ambulatory dysfunction. Please review details as above. Physical Exam: Vitals signs as noted above General Appearance:Moderately built and nourished, no apparent distress Head: normocephalic, Atraumatic Eyes: normal inspection, EOMI Neck: supple, Trachea midline Respiratory/Chest: Normal breath sounds, CTA, No accessory muscle use Cardiovascular: S1, S2, No murmur Abdomen/GI:Soft, Non tender, Bowel sounds present Extremities/Musculoskeletal:normal inspection, no edema Neurologic/Psych:AAOX3, grossly no focal neurological deficits Skin: normal color, warm Lumbar radiculopathy secondary to disc herniation Appreciate orthopedic spine input Continue IV Decadron, fall precautions PT OT as able Consideration for laminectomy/discectomy and possible epidural injection per Ortho Suspected MS, optic neuritis Suspected vasculitis Needs follow-up with neurology, rheumatology as outpatient I personally interviewed and examined the patient at bedside. I have reviewed the advanced practitioner's documentation on the date of service referred in note and agree with plan. Patient's care is coordinated with Cherelle MERINO. Please refer to the documentation above for details of patient's presentation and for discussion of other issues. I spent a total [id number] coordinating, documenting, and providing care for this patient excluding time spent in the performance of separately billed services or time spent by another provider/QHP. Subjective Pt sitting in her hospital bed in no apparent distress. Main complaint is increasingly worse sciatica B/L which starts in her hip and extends downward to her heels. She also complains of cyanosis of her toes and sometimes her fingers. She denies Young, dizziness, SOB, chest pain, recent falls. She reports feeling frustrated because she is usually always on the go and this has been progressively getting worse. See A/P for further details. Review of Systems Review of Systems: Neuro: (-) Falls, trauma, slurred speech HEENT: (-) YOUNG, dizziness, dysphagia, visual or auditory changes CV: (-) CP, palpitations, swelling Resp: (-) SOB GI: (-) appetite changes, N/V/D, bowel changes : (-) urinary changes Skin: (-) rashes Psych: (-) anxiety, depression Physical Exam Physical Exam: Neuro: AAOx4, PERRLA, no aphagia, memory changes, CNII-XII grossly intact HEENT: head normocephalic, moist mucus membranes CV: S1/S2, (-) M/G/R, (-) edema, cap refill < 3 seconds Resp: Lungs CTA in all wylie. On RA GI: Abdomen S/NT/ND, Ax4 bowel sounds, (-) CVA tenderness Musculoskeletal: extremities motor strength 5/5 (B/L LE weakness, left greater than right, decreased sensation below the knee) Skin: (-) rashes , (-) erythema. Psych: euthymic mood Results & Data Results & Data Vital Signs (Past 12 Hours) Vital Signs Temp Pulse Resp BP Pulse Ox O2 Del Method 04/08/25 06:55 36.6 C 70 16 120/76 99 Room Air Laboratory Results Short CBC 04/08/25 Range/Units 05:47 WBC 12.37 H (4.8-10.8) K/ul Hgb 14.6 (12.0-16.0) g/dl Hct 44.5 (37.0-47.0) % Plt Count 265 (130-400) K/uL BMP 04/08/25 05:47 Sodium 140 Potassium 4.2 Chloride 104 Carbon Dioxide 29 BUN 16 Creatinine 0.77 Glucose 112 H Calcium 9.5 Liver Function 04/08/25 Range/Units 05:47 Total Bilirubin 0.5 (0.2-1.0) mg/dl AST 16 (13-39) U/L ALT 11 (7-52) U/L Alkaline Phosphatase 42 (34-104) U/L Albumin 4.3 (3.4-5.0) gm/dl Diagnostic Findings Brain MRI 04/08/25 15:27 EXAM: MR brain wo/w con CLINICAL HISTORY: R/O Multiple sclerosis. TECHNIQUE: MRI of the brain was performed with and without intravenous contrast administration (specify contrast agent and dosage). Sequences obtained include pre-contrast and post-contrast T1-weighted, T2-weighted, FLAIR (Fluid-Attenuated Inversion Recovery), DWI (Diffusion-Weighted Imaging), and ADC (Apparent Diffusion Coefficient) sequences. COMPARISON: 03/01/2020. FINDINGS: Brain Parenchyma: Faint tiny bilateral smita-trigonal high T2/FLAIR signal foci, single focus on each side, with no enhancement or diffusion restriction. No evidence of acute infarction or hemorrhage. Gonzales-white matter differentiation is preserved. No abnormal signal intensity lesions were identified. Post-Contrast Findings: No abnormal enhancement of the brain parenchyma or meninges. Ventricles and Sulci: The ventricular system is within normal limits without evidence of hydrocephalus. Sulci and cisternal spaces are age-appropriate. Brainstem and Cerebellum: Normal appearance of the brainstem and cerebellum without focal lesions or abnormal enhancement. Vessels: Intracranial vessels appear normal without evidence of vascular malformations or aneurysms. Skull and Calvarium: No evidence of skull vault lesions or abnormal marrow signal within the calvarium. Deviated bony nasal septum to the right side Newly seen mild left maxillary and ethmoidal sinusitis IMPRESSION: MRI of the brain with and without contrast: 1. Faint tiny bilateral smita-trigonal high T2/FLAIR signal foci, single focus on each side, with no enhancement or diffusion restriction. could be non-specific, yet Multiple sclerosis could not be ruled out, CSF analysis along with follow-up are needed. 2. Newly seen mild left maxillary and ethmoidal sinusitis. Electronically signed by Martín Foley 04-08-2025 13:41 PM Cervical Spine MRI 04/08/25 15:27 EXAM: MR cervical spine wo/w con CLINICAL HISTORY: R/O Multiple sclerosis. TECHNIQUE: MRI of the cervical spine was performed with and without contrast. Sequences obtained include sagittal T1-weighted, T2-weighted, STIR (Short Tau Inversion Recovery), and axial T2-weighted sequences. Additional sequences such as gradient echo (GRE) or post-contrast T1-weighted image,s may have been included based on clinical indication. COMPARISON: No previous studies are available for comparison. FINDINGS: Vertebral Alignment: No evidence of fracture or subluxation. First-degree spondylolisthesis of C6 over C7. Mildly straightened cervical curve Mild spondylotic degenerative changes manifested by marginal anterior osteophytic lipping of C5-6 vertebral endplates. Vertebral Bodies and Intervertebral Discs: Normal vertebral body height and alignment. Intervertebral discs demonstrate normal hydration. [id number] analysis: C2-C3: There is no significant disc pathology. Normal morphology of the ligamentum flavum. No arthropathy of the uncovertebral and zygapophyseal joints. No significant spinal canal stenosis C3-C4: There is no significant disc pathology. Normal morphology of the ligamentum flavum. No arthropathy of the uncovertebral and zygapophyseal joints. No significant spinal canal stenosis C4-C5: There is a 1.2 mm mild bi-posterolateral disc bulge/osteophyte complex causing mild neural foraminal stenosis with no spinal canal stenosis C5-C6: There is a diffuse disc bulge with osteophytic complex measuring 5.2 mm with inferior migration indenting the subarachnoid space and slightly encroaching on both exit neural foramina, causing bilateral moderate neural foraminal stenosis with mild spinal canal stenosis. C6-C7: There is a diffuse, broad-based disc bulge measuring 4 mm with superior migration indenting the subarachnoid space, causing bilateral mild neural foraminal stenosis. Normal morphology of the ligamentum flavum. No arthropathy of the uncovertebral and zygapophyseal joints. No significant spinal canal stenosis C7-T1: There is no significant disc pathology. Normal morphology of the ligamentum flavum. No arthropathy of the uncovertebral and zygapophyseal joints. No significant spinal canal stenosis Spinal Cord and Nerve Roots: The spinal cord demonstrates normal signal intensity and caliber. No evidence of cord compression or intradural pathology. Nerve roots appear unremarkable bilaterally. Soft Tissues: Paraspinal soft tissues appear normal without evidence of abnormal signal intensity or mass lesions. Vascular Structures: Normal appearance of the visualized vascular structures. No evidence of aneurysm, dissection, or significant atherosclerosis. Normal enhancement post-contrast. IMPRESSION: 1. No spinal cord abnormal signal areas. 2. Mild neck muscle spasm. 3. Cervical spine spondylodegenerative changes. 4. Multilevel cervical disc bulge and osteophyte complexes are more evident at C5-C6 and C6-C7 as described. Electronically signed by Martín Foley 04-08-2025 13:47 PM Thoracic Spine MRI 04/07/25 15:27 Exam(s): MRI T SPINE W/WO Contrast IV Amt: 7.3mL Gadavist given existing IV EXAM: MR Thoracic Spine Without and With Intravenous Contrast CLINICAL HISTORY: Reason for exam: r/o ms. TECHNIQUE: Magnetic resonance images of the thoracic spine without and with intravenous contrast in multiple planes. CONTRAST: Patient received 7.3mL Gadavist given existing IV of IV contrast COMPARISON: No relevant prior studies available. FINDINGS: Vertebrae: There are 12 thoracic type vertebral bodies with a normal thoracic kyphosis. There is normal vertebral body height and alignment. The bone marrow signal is normal. No acute fracture. Discs/spinal canal/neural foramina: No acute findings. No significant disc disease. No spinal canal stenosis. Spinal cord: Unremarkable. Normal signal. No abnormal enhancement. Soft tissues: Unremarkable. IMPRESSION: Negative MRI of the thoracic spine. No evidence of demyelinating disease. Electronically signed by: Jennifer Powell MD 04/08/25 00:58 AM
[2025-04-08] MEDS: GADOBUTROL 65ML VIAL IV ONE (12:37)
--- NOTE | 2025-04-08 13:42 | Magnetic Resonance Report ---
EXAM: MR brain wo/w con CLINICAL HISTORY: R/O Multiple sclerosis. TECHNIQUE: MRI of the brain was performed with and without intravenous contrast administration (specify contrast agent and dosage). Sequences obtained include pre-contrast and post-contrast T1-weighted, T2-weighted, FLAIR (Fluid-Attenuated Inversion Recovery), DWI (Diffusion-Weighted Imaging), and ADC (Apparent Diffusion Coefficient) sequences. COMPARISON: 03/01/2020. FINDINGS: Brain Parenchyma: Faint tiny bilateral smita-trigonal high T2/FLAIR signal foci, single focus on each side, with no enhancement or diffusion restriction. No evidence of acute infarction or hemorrhage. Gonzales-white matter differentiation is preserved. No abnormal signal intensity lesions were identified. Post-Contrast Findings: No abnormal enhancement of the brain parenchyma or meninges. Ventricles and Sulci: The ventricular system is within normal limits without evidence of hydrocephalus. Sulci and cisternal spaces are age-appropriate. Brainstem and Cerebellum: Normal appearance of the brainstem and cerebellum without focal lesions or abnormal enhancement. Vessels: Intracranial vessels appear normal without evidence of vascular malformations or aneurysms. Skull and Calvarium: No evidence of skull vault lesions or abnormal marrow signal within the calvarium. Deviated bony nasal septum to the right side Newly seen mild left maxillary and ethmoidal sinusitis IMPRESSION: MRI of the brain with and without contrast: 1. Faint tiny bilateral smita-trigonal high T2/FLAIR signal foci, single focus on each side, with no enhancement or diffusion restriction. could be non-specific, yet Multiple sclerosis could not be ruled out, CSF analysis along with follow-up are needed. 2. Newly seen mild left maxillary and ethmoidal sinusitis. Electronically signed by Martín Foley 04-08-2025 13:41 PM
--- NOTE | 2025-04-08 13:47 | Magnetic Resonance Report ---
EXAM: MR cervical spine wo/w con CLINICAL HISTORY: R/O Multiple sclerosis. TECHNIQUE: MRI of the cervical spine was performed with and without contrast. Sequences obtained include sagittal T1-weighted, T2-weighted, STIR (Short Tau Inversion Recovery), and axial T2-weighted sequences. Additional sequences such as gradient echo (GRE) or post-contrast T1-weighted image,s may have been included based on clinical indication. COMPARISON: No previous studies are available for comparison. FINDINGS: Vertebral Alignment: No evidence of fracture or subluxation. First-degree spondylolisthesis of C6 over C7. Mildly straightened cervical curve Mild spondylotic degenerative changes manifested by marginal anterior osteophytic lipping of C5-6 vertebral endplates. Vertebral Bodies and Intervertebral Discs: Normal vertebral body height and alignment. Intervertebral discs demonstrate normal hydration. [id number] analysis: C2-C3: There is no significant disc pathology. Normal morphology of the ligamentum flavum. No arthropathy of the uncovertebral and zygapophyseal joints. No significant spinal canal stenosis C3-C4: There is no significant disc pathology. Normal morphology of the ligamentum flavum. No arthropathy of the uncovertebral and zygapophyseal joints. No significant spinal canal stenosis C4-C5: There is a 1.2 mm mild bi-posterolateral disc bulge/osteophyte complex causing mild neural foraminal stenosis with no spinal canal stenosis C5-C6: There is a diffuse disc bulge with osteophytic complex measuring 5.2 mm with inferior migration indenting the subarachnoid space and slightly encroaching on both exit neural foramina, causing bilateral moderate neural foraminal stenosis with mild spinal canal stenosis. C6-C7: There is a diffuse, broad-based disc bulge measuring 4 mm with superior migration indenting the subarachnoid space, causing bilateral mild neural foraminal stenosis. Normal morphology of the ligamentum flavum. No arthropathy of the uncovertebral and zygapophyseal joints. No significant spinal canal stenosis C7-T1: There is no significant disc pathology. Normal morphology of the ligamentum flavum. No arthropathy of the uncovertebral and zygapophyseal joints. No significant spinal canal stenosis Spinal Cord and Nerve Roots: The spinal cord demonstrates normal signal intensity and caliber. No evidence of cord compression or intradural pathology. Nerve roots appear unremarkable bilaterally. Soft Tissues: Paraspinal soft tissues appear normal without evidence of abnormal signal intensity or mass lesions. Vascular Structures: Normal appearance of the visualized vascular structures. No evidence of aneurysm, dissection, or significant atherosclerosis. Normal enhancement post-contrast. IMPRESSION: 1. No spinal cord abnormal signal areas. 2. Mild neck muscle spasm. 3. Cervical spine spondylodegenerative changes. 4. Multilevel cervical disc bulge and osteophyte complexes are more evident at C5-C6 and C6-C7 as described. Electronically signed by Martín Foley 04-08-2025 13:47 PM
[2025-04-09 06:21] LABS: Hematocrit (blood only) 40.8 % (37.0-47.0); Hemoglobin 13.5 g/dl (12.0-16.0); Mean Corpuscular Hemoglobin 30.6 pg (25.0-34.0); Mean Corpuscular Volume 92.5 fL (80.0-100.0); Platelet Count 274 K/uL (130-400); RDW Standard Deviation 41.4 fL (36.4-46.3); Red Blood Count 4.41 M/uL (4.20-5.40); White Blood Count 18.25 K/ul (4.8-10.8)
[2025-04-09 06:45] LABS: Anion Gap 7.0 (3-11); Blood Urea Nitrogen 18.0 mg/dl (6-23); Calcium 9.3 mg/dl (8.6-10.3); Carbon Dioxide 28.0 mmol/L (21-32); Chloride 105.0 mmol/L (98-107); Creatinine Clr Calc Pharmacy 114.0 ml/min; Glucose 122.0 mg/dl (70-99(Fasting)); Potassium 4.3 mmol/L (3.5-5.1); Sodium 140.0 mmol/L (136-145)
--- NOTE | 2025-04-09 07:26 | Hospitalist Progress Note ---
Date of Service April 09, 2025 Assessment & Plan (1) Lumbar radiculopathy: (2) KEYSHA on CPAP: (3) ADHD: (4) Anxiety: (5) Hypertension: (6) Migraine: Plan The patient is a 39-year-old female who presents to the ED on 04/07/2025 with complaints of worsening bilateral lower extremity weakness left greater than right, has a history of lumbar surgery and currently being worked up for MS Lumbar radiculopathy L4-L5 disc extrusion Hx L5-S1 decompression and fusion: Decreased sensation and strength in bilateral lower extremities, L>R Lumbar MRI shows no L4-L5 disc extrusion, possible mass effect on L5 nerve root Dilaudid for pain control, IV Decadron (leukocytosis 18.25 likely 2/2 steroids) Thoracic MRI negative for demyelinating disease [facility] saw pt; appreciate reccs. Goal conservative tx with epidural injections for relief (as OPT); likely laminectomy with discectomy recommended PT/OT, JORGE's normal Optic neuritis Possible MS Neuropathy, tremors, generalized weakness; worse in lower extremities Following with neurology OPT with [facility] MRI/cervical spine results: 1. No spinal cord abnormal signal areas. 2. Mild neck muscle spasm. 3. Cervical spine spondylodegenerative changes. 4. Multilevel cervical disc bulge and osteophyte complexes are more evident at C5-C6 and C6- C7. Brain MRI: 1. Faint tiny bilateral smita-trigonal high T2/FLAIR signal foci, single focus on each side, with no enhancement or diffusion restriction. could be non-specific, yet Multiple sclerosis could not be ruled out, CSF analysis along with follow-up are needed. 2. Newly seen mild left maxillary and ethmoidal sinusitis. Reports autoimmune workup outpatient was negative, vitamin B12 injections every 3 months After discussion with IDT, goal to have LP performed prior to DC for CSF analysis as outlined above; order placed for 04/10 Pt can likely be D/C after stable post LP. Hx ADHD/anxiety: Continue home Zoloft and Adderall Hx KEYSHA on CPAP: CPAP at bedtime Sinusitis: Identified on brain MRI WBC 12.37; likely from steroids No maxillary or frontal sinus pressure No cough or residual nasal s/s Likely chronic Disposition: Code Status: Full code DVT prophylaxis: SCDs Pt can likely be D/C after stable post LP. I spent a total of 58 minutes coordinating, documenting, and providing care for this patient excluding time spent in the performance of separately billed services or time spent by another provider/QHP. Admission and Anticipated Discharge Date Admission Date: April 07, 2025 Supervising Physician Co-Signing Physician Notes Patient is seen and examined at bedside. Still has lower back pain radiating to the left lower extremity. Subjectively feels about the same as yesterday. Please review details as above. Physical Exam: Vitals signs as noted above General Appearance:Moderately built and nourished, no apparent distress Head: normocephalic, Atraumatic Eyes: normal inspection, EOMI Neck: supple, Trachea midline Respiratory/Chest: Normal breath sounds, CTA, No accessory muscle use Cardiovascular: S1, S2, No murmur Abdomen/GI:Soft, Non tender, Bowel sounds present Extremities/Musculoskeletal:normal inspection, no edema Neurologic/Psych:AAOX3, grossly no focal neurological deficits Skin: normal color, warm Lumbar radiculopathy secondary to disc herniation Appreciate orthopedic spine input Continue IV Decadron, fall precautions PT OT as able Consideration for laminectomy/discectomy and possible epidural injection per Ortho Orthopedic spine currently recommending conservative management. Leukocytosis secondary to Decadron Suspected MS, optic neuritis Suspected vasculitis Needs follow-up with neurology, rheumatology as outpatient Plan for lumbar puncture tomorrow I personally interviewed and examined the patient at bedside. I have reviewed the advanced practitioner's documentation on the date of service referred in n ote and agree with plan. Patient's care is coordinated with Cherelle MERINO. Please refer to the documentation above for details of patient's presentation and for discussion of other issues. I spent a total [id number] coordinating, documenting, and providing care for this patient excluding time spent in the performance of separately billed services or time spent by another provider/QHP. Subjective Pt lying on her left side in her hospital bed in no apparent distress. I was able to observe her moving around, more rigid, but independently. No surgery planned at this time, goal is conservative tx as OPT with Ortho. Plan for LP prior to DC (04/10) Pt denies YOUNG, dizziness, chest pain, shortness of breath, visual or auditory changes, N/V/D. Please see A/P for further details. Review of Systems Review of Systems: Neuro: (-) Falls, trauma, slurred speech HEENT: (-) YOUNG, dizziness, dysphagia, visual or auditory changes CV: (-) CP, palpitations, swelling Resp: (-) SOB GI: (-) appetite changes, N/V/D, bowel changes : (-) urinary changes Skin: (-) rashes Psych: (-) anxiety, depression Physical Exam Physical Exam: Neuro: AAOx4, PERRLA, no aphagia, memory changes, CNII-XII grossly intact HEENT: head normocephalic, moist mucus membranes CV: S1/S2, (-) M/G/R, (-) edema, cap refill < 3 seconds Resp: Lungs CTA in all wylie. On RA GI: Abdomen S/NT/ND, Ax4 bowel sounds, (-) CVA tenderness Musculoskeletal: extremities motor strength 5/5 (B/L LE weakness, left greater than right, decreased sensation below the knee) Skin: (-) rashes , (-) erythema. Psych: euthymic mood Results & Data Results & Data Vital Signs (Past 12 Hours) Vital Signs Temp Pulse Resp BP Pulse Ox O2 Del Method 04/09/25 06:58 36.8 C 64 16 101/58 L 99 Room Air 04/08/25 20:14 36.5 C 16 99/60 L 97 Room Air Laboratory Results Short CBC 04/09/25 Range/Units 05:28 WBC 18.25 H (4.8-10.8) K/ul Hgb 13.5 (12.0-16.0) g/dl Hct 40.8 (37.0-47.0) % Plt Count 274 (130-400) K/uL BMP 04/09/25 05:28 Sodium 140 Potassium 4.3 Chloride 105 Carbon Dioxide 28 BUN 18 Creatinine 0.78 Glucose 122 H Calcium 9.3
[2025-04-10] MEDS: GABAPENTIN 300 MG CAP PO SCH (09:23)
--- NOTE | 2025-04-10 12:30 | Pain Management Consultation ---
Date of Consultation April 10, 2025 Assessment & Plan (1) Lumbar disc herniation with radiculopathy: (2) Abnormal magnetic resonance imaging of lumbar spine: Plan 1. We discussed her lumbar spine MRI and her moderate L4-5 disc extrusion with impingement of her L5 root as a likely source of her current pain. Recommend continuation of IV/conversion to oral steroids. 2. Recommend addition of gabapentin 300 mg p.o. twice daily for adjuvant pain control. 3. I agree with utilization of tizanidine and as needed hydromorphone. Will utilize hydrocodone to provide an oral option to convert from IV medications in preparation for home. 4. Recommend formal PT as an outpatient. 5. Recommend continued workup for multiple sclerosis and assessment of her lumbar puncture in combination with neurology to determine next steps. 6. Can consider outpatient left L4-5 transforaminal epidural steroid injection once lumbar puncture results return and next steps in MS workup has been determined. 7. Thank you very much for this consultation, we will continue to follow this patient as an inpatient and make plans to see her shortly after she is discharged as an outpatient. 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 She reports she did not have any accident or trauma leading to her current complaint but reports pain and weakness have been increasing over the last few months. She reports she recently consulted with a [facility] neurologist who is currently working her up for multiple sclerosis. She reports she initially consulted with this neurologist (Dr. Rozina Cloud) on March 30, 2025 and scheduled her for MRI imaging of her neuraxis. These studies were completed here and she is scheduled for a lumbar puncture this morning. In regards to her current pain, she reports pain ranges between 3-6 out of 10 currently 5 out of 10 sharp shooting electric. She denies bowel or bladder incontinence but admits to increasing weakness. She reports at times she has simply been unable to walk or play basketball with her son over the last few months. She reports this waxes and wanes prompting her MS workup. She reports her sister was diagnosed with optic neuritis and ultimately multiple sclerosis at the age of 24. As far as previous interventions she has a history of lumbar epidural steroid injections both transforaminal and interlaminar prior to her L5-S1 fusion around 4 years ago. She reports epidurals provided modest benefit ultimately leading to surgical intervention. She reports some improvement with IV steroids during this hospitalization. She reports an interest in outpatient physical therapy and adjuvant medications to minimize her pain and reduce her surgical need. She is open to retrial of epidural steroid injections if determined this would be beneficial to avoiding surgical intervention at this time. Pain Assessment Full Body Front + Back: 2 1. 2. 3. [facility] Combined Pain Scale: 5-Moderate - Cannot perform normal tasks without increase in pain Pain scale - at its best (0-10): 3 Pain scale - at its worst (0-10): 6 Allergies Allergy/AdvReac Type Severity Reaction Status Date / Time bupropion [From Wellbutrin] Allergy Severe Stroke Unverified 04/07/25 12:33 like symptoms bee venom protein (honey bee) Allergy Anaphylaxis Verified 04/07/25 12:33 latex Allergy Hives Verified 04/07/25 12:33 Home Medications Medication Instructions Recorded Confirmed Type epinephrine 0.3 mg/0.3 mL 0.3 mg IM Q4H PRN Allergic Reaction 08/26/21 04/07/25 History injection, auto-injector multivitamin 1 tab PO DAILY 08/26/21 04/07/25 History calcium citrate 500 mg PO QAM 10/18/23 04/07/25 History omeprazole 20 mg capsule,delayed 20 mg PO QAM 10/18/23 04/07/25 History release sertraline 100 mg tablet (Zoloft) 100 mg PO QAM 10/18/23 04/07/25 History dextroamphetamine sulfate 15 mg 30 mg PO QAM 04/07/25 04/07/25 History capsule,extended release dextroamphetamine-amphetamine 10 10 mg PO QDL PRN Workload 04/07/25 04/07/25 History mg tablet sertraline 25 mg tablet (Zoloft) 25 mg PO QAM 04/07/25 04/07/25 History Pain History Pain Intensity Pain scale - at its best (0-10): 3 Pain scale - at its worst (0-10): 6 Patient History Medical History (Updated 04/10/25 @ 16:05 by Tati Martinez DO) Lumbar disc herniation with radiculopathy KEYSHA on CPAP Allergic rhinitis ADHD Anxiety Hypertension Hepatic steatosis Migraines Surgical History (Updated 04/10/25 @ 15:58 by Tati Martinez DO) History of abdominoplasty History of breast augmentation History of lumbar fusion L5-S1 H/O section Status post laparoscopic hysterectomy H/O adenoidectomy H/O oophorectomy H/O sinus surgery Family History Grandfather Diabetes Social History Smoking Status: Never smoker Second Hand Exposure: No; Do You Dip or Chew Tobacco: No; Tobacco Cessation Education Requested by Patient: No Hx Alcohol Use: No Hx Substance Use: No Preferred Language: Telugu Communication Ability: Effective [employer] Required: No Beliefs That Will Affect Care: None marital status: Current Living Situation: Spouse How many Children do You have: 1 Other Information That Helps Us Care for You: No Feels Safe at Home: Yes Safety Concerns: Feels Safe At This Time Assistive Devices: Cane Physical Exam 2 Physical Exam: Constitutional: Well-developed, well-nourished, healthy-appearing, normal weight Psych: Awake, alert, and oriented 3 with normal affect and mood. Recent memory appears grossly intact Eyes: Pupils are equally round and reactive to light with normal size pupils, eyelids appear normal Ear, nose, mouth, and throat: Moist nasal and oral membranes, lips and tongues appear normal, no external ear abnormalities are noted Neck: The trachea is midline without deviation Respiratory: Normal respiratory effort without distress, no audible wheezes or rhonchi CV: Normal S1 and S2, warm distal extremities Chest: Deferred GI/abdomen: Soft Musculoskeletal: Head is normocephalic and atraumatic, gait not observed Cervical: Lordotic curve: Normal Range of motion is slightly decreased with extension, flexion, side-bending, rotation Tenderness: Mildly tender over the axial midline Strength: Strength is equal bilaterally with 4+ out of 5 strength in all planes Sensation of upper extremities: Intact bilaterally Deep tendon reflexes: Rated at 3+ in bilateral biceps, triceps, brachial radialis Myofascial spasm: Mild appreciable spasm. No discrete trigger points noted Thoracic: Kyphotic curve: Normal Tenderness: Nontender over the axial midline Lumbar: Lordotic curve: Decreased lumbar lordosis with a well-healed midline surgical incision Range of motion is decreased in all planes Tenderness: Moderately tender over the axial midline L4-S1 Facet provocation: Negative bilaterally Straight leg raise: Positive bilaterally Step-off injuries: None Strength: Strength is equal bilaterally with 4+ out of 5 strength in all planes (exception 3 out of 5 for left EHL which patient states is chronic and pre- existing) Sensation of lower extremities: Intact bilaterally Deep tendon reflexes: Rated at 3+ in bilateral L4 and S1 Myofascial spasm: Mild to moderate spasm. No discrete trigger points noted Greater trochanters: Nontender bilaterally Sacroiliac joints: Nontender bilaterally Pathologic reflexes noted: None Mild tremor noted Skin: No rashes, lesions, ulcers, or induration noted Neuro: No nystagmus noted, the tongue is midline, the patient is able to rotate their head bilaterally : Deferred Results (Pain Clinic) Diagnostic Review MRI: enhanced, non enhanced, reports reviewed, images reviewed and findings discussed with patient MRI Findings: 04/08/25 MR brain wo/w con CLINICAL HISTORY: R/O Multiple sclerosis. TECHNIQUE: MRI of the brain was performed with and without intravenous contrast administration (specify contrast agent and dosage). Sequences obtained include pre-contrast and post-contrast T1-weighted, T2-weighted, FLAIR (Fluid-Attenuated Inversion Recovery), DWI (Diffusion-Weighted Imaging), and ADC (Apparent Diffusion Coefficient) sequences. COMPARISON: 03/01/2020. FINDINGS: Brain Parenchyma: Faint tiny bilateral smita-trigonal high T2/FLAIR signal foci, single focus on each side, with no enhancement or diffusion restriction. No evidence of acute infarction or hemorrhage. Gonzales-white matter differentiation is preserved. No abnormal signal intensity lesions were identified. Post-Contrast Findings: No abnormal enhancement of the brain parenchyma or meninges. Ventricles and Sulci: The ventricular system is within normal limits without evidence of hydrocephalus. Sulci and cisternal spaces are age-appropriate. Brainstem and Cerebellum: Normal appearance of the brainstem and cerebellum without focal lesions or abnormal enhancement. Vessels: Intracranial vessels appear normal without evidence of vascular malformations or aneurysms. Skull and Calvarium: No evidence of skull vault lesions or abnormal marrow signal within the calvarium. Deviated bony nasal septum to the right side Newly seen mild left maxillary and ethmoidal sinusitis IMPRESSION: MRI of the brain with and without contrast: 1. Faint tiny bilateral smita-trigonal high T2/FLAIR signal foci, single focus on each side, with no enhancement or diffusion restriction. could be non-specific, yet Multiple sclerosis could not be ruled out, CSF analysis along with follow-up are needed. 2. Newly seen mild left maxillary and ethmoidal sinusitis. 04/08/25 MR cervical spine wo/w con CLINICAL HISTORY: R/O Multiple sclerosis. TECHNIQUE: MRI of the cervical spine was performed with and without contrast. Sequences obtained include sagittal T1-weighted, T2-weighted, STIR (Short Tau Inversion Recovery), and axial T2-weighted sequences. Additional sequences such as gradient echo (GRE) or post-contrast T1-weighted image,s may have been included based on clinical indication. COMPARISON: No previous studies are available for comparison. FINDINGS: Vertebral Alignment: No evidence of fracture or subluxation. First-degree spondylolisthesis of C6 over C7. Mildly straightened cervical curve Mild spondylotic degenerative changes manifested by marginal anterior osteophytic lipping of C5-6 vertebral endplates. Vertebral Bodies and Intervertebral Discs: Normal vertebral body height and alignment. Intervertebral discs demonstrate normal hydration. [id number] analysis: C2-C3: There is no significant disc pathology. Normal morphology of the ligamentum flavum. No arthropathy of the uncovertebral and zygapophyseal joints. No significant spinal canal stenosis C3-C4: There is no significant disc pathology. Normal morphology of the ligamentum flavum. No arthropathy of the uncovertebral and zygapophyseal joints. No significant spinal canal stenosis C4-C5: There is a 1.2 mm mild bi-posterolateral disc bulge/osteophyte complex causing mild neural foraminal stenosis with no spinal canal stenosis C5-C6: There is a diffuse disc bulge with osteophytic complex measuring 5.2 mm with inferior migration indenting the subarachnoid space and slightly encroaching on both exit neural foramina, causing bilateral moderate neural foraminal stenosis with mild spinal canal stenosis. C6-C7: There is a diffuse, broad-based disc bulge measuring 4 mm with superior migration indenting the subarachnoid space, causing bilateral mild neural foraminal stenosis. Normal morphology of the ligamentum flavum. No arthropathy of the uncovertebral and zygapophyseal joints. No significant spinal canal stenosis C7-T1: There is no significant disc pathology. Normal morphology of the ligamentum flavum. No arthropathy of the uncovertebral and zygapophyseal joints. No significant spinal canal stenosis Spinal Cord and Nerve Roots: The spinal cord demonstrates normal signal intensity and caliber. No evidence of cord compression or intradural pathology. Nerve roots appear unremarkable bilaterally. Soft Tissues: Paraspinal soft tissues appear normal without evidence of abnormal signal intensity or mass lesions. Vascular Structures: Normal appearance of the visualized vascular structures. No evidence of aneurysm, dissection, or significant atherosclerosis. Normal enhancement post-contrast. IMPRESSION: 1. No spinal cord abnormal signal areas. 2. Mild neck muscle spasm. 3. Cervical spine spondylodegenerative changes. 4. Multilevel cervical disc bulge and osteophyte complexes are more evident at C5-C6 and C6-C7 as described. 04/07/25 MRI T SPINE W/WO Contrast IV Amt: 7.3mL Gadavist given existing IV EXAM: MR Thoracic Spine Without and With Intravenous Contrast CLINICAL HISTORY: Reason for exam: r/o ms. TECHNIQUE: Magnetic resonance images of the thoracic spine without and with intravenous contrast in multiple planes. CONTRAST: Patient received 7.3mL Gadavist given existing IV of IV contrast COMPARISON: No relevant prior studies available. FINDINGS: Vertebrae: There are 12 thoracic type vertebral bodies with a normal thoracic kyphosis. There is normal vertebral body height and alignment. The bone marrow signal is normal. No acute fracture. Discs/spinal canal/neural foramina: No acute findings. No significant disc disease. No spinal canal stenosis. Spinal cord: Unremarkable. Normal signal. No abnormal enhancement. Soft tissues: Unremarkable. IMPRESSION: Negative MRI of the thoracic spine. No evidence of demyelinating disease. 04/07/25 MRI OF THE LUMBAR SPINE WITHOUT CONTRAST CLINICAL HISTORY: Low back pain, leg weakness. COMPARISON STUDY: Lumbar spine MRI August 26, 2021. Lumbar spine fluoroscopic images August 28, 2021. TECHNIQUE: Utilizing a 1.5 Monet magnet and dedicated coil, multiplanar, multiecho imaging of the lumbar spine was performed without IV contrast. FINDINGS: For purposes of numbering on this exam, the L5-S1 disc space is assigned to axial image 15 of 16. There are no lumbar spine fractures. No marrow edema or marrow placement is present. There are postoperative findings consistent with L5-S1 decompression and fusion with interbody spacer placement. The conus terminates at the lower L1 level. Paravertebral soft tissues are unremarkable. L1-2: The central canal and neural foramen are patent. L2-3: There is mild disc space narrowing with minimal disc bulge. The findings have slightly progressed since MRI of August 26, 2021. Central canal neural foramen are patent L3-4: A small annular tear at tiny central disc protrusion is noted. The central canal and neural foramen are patent. L4-5: A moderate sized central/left paracentral disc extrusion with inferior subligamentous migration is developed since MRI of August 26, 2021. There is mild narrowing of the central canal and moderate narrowing of the left lateral recess with possible mass effect upon the descending left L5 nerve root. There is no neural foraminal stenosis. L5-S1: Expected postoperative findings are noted. There is no recurrent central canal or neural foraminal stenosis. IMPRESSION: 1. Expected findings following L5-S1 decompression and fusion. 2. Moderate-sized central/left paracentral disc extrusion with inferior subligamentous migration at L4-L5 which has developed since previous MRI. This results in mild central canal and moderate left lateral recess narrowing with possible mass effect upon the descending left L5 nerve root. 3. Otherwise, mild degenerative disc disease within the lumbar spine.
--- NOTE | 2025-04-10 13:38 | Fluoroscopy Report ---
LUMBAR PUNCTURE UNDER FLUOROSCOPY CLINICAL HISTORY: Optic neuritis PROCEDURE: Procedure and risks were explained. Informed consent was obtained. A final timeout was com pleted. The patient was placed prone on the fluoroscopic exam table. The lower lumbar region was prep ped and draped in sterile fashion. 1% lidocaine was utilized for skin anesthesia. Utilizing fluoroscopic guidance, a 22-gauge Sprotte spinal needle was advanced into the intrathecal s pace at the L5 laminectomy site. Fluoroscopic spot images were obtained. 8 mL of clear CSF fluid was removed and sent to lab for analysis. The needle was removed and Band-Aid applied. The patient tolera amparo the procedure well. Vital signs will be monitored postprocedure. Fluoroscopy time 4 seconds. Study dosed is 3.37 mGy. IMPRESSION: Lumbar puncture as above. Performed, dictated, and signed by Jesse Chin PA-C; to be co-signed by Dr. Abran Castellanos. Electronically signed by: Abran Castellanos M.D. 04/10/2025 2:58 PM
[2025-04-10 13:43] LABS: CSF Count Tube # 3; CSF Xanthrochromic No xanthochromia; Red Blood Cell CSF Manual 1 (0); White Blood Cell CSF Manual 0 (0-5)
--- NOTE | 2025-04-10 15:11 | Hospitalist Progress Note ---
Date of Service April 10, 2025 Assessment & Plan (1) Lumbar radiculopathy: (2) KEYSHA on CPAP: (3) ADHD: (4) Anxiety: (5) Hypertension: Plan 39-year-old female with PMH significant for anxiety, ADHD, KEYSHA on CPAP, and history of lumbar surgery who presents to the ED on 04/07/2025 with complaints of worsening bilateral lower extremity weakness left greater than right and is admitted for lumbar disc herniation and MS work up. Lumbar radiculopathy L4-L5 disc extrusion Hx L5-S1 decompression and fusion: Decreased sensation and strength in bilateral lower extremities, L>R Lumbar MRI shows no L4-L5 disc extrusion, possible mass effect on L5 nerve root Thoracic MRI negative for demyelinating disease ABIs normal Dilaudid for pain control, IV Decadron q8hr (leukocytosis 18.25 likely 2/2 steroids), tizanidine PRN Gabapentin added today by pain management Orthospine saw pt; goal conservative tx with epidural injections for relief (as OPT); likely laminectomy with discectomy recommended PT/OT recommending dc to home Plan for dc home tomorrow Optic neuritis Possible MS Neuropathy, tremors, generalized weakness; worse in lower extremities Following with neurology OPT with [facility] Dr Mireles Reports autoimmune workup outpatient was negative, vitamin B12 injections every 3 months MRI/cervical spine results: 1. No spinal cord abnormal signal areas. 2. Mild neck muscle spasm. 3. Cervical spine spondylodegenerative changes. 4. Multilevel cervical disc bulge and osteophyte complexes are more evident at C5-C6 and C6- C7. Brain MRI: 1. Faint tiny bilateral smita-trigonal high T2/FLAIR signal foci, single focus on each side, with no enhancement or diffusion restriction. could be non-specific, yet Multiple sclerosis could not be ruled out, CSF analysis along with follow-up are needed. 2. Newly seen mild left maxillary and ethmoidal sinusitis. LP completed today with CSF lactate, LDH, lyme DNA PCR, MS panel pending Hx ADHD/anxiety: Continue home Zoloft Adderall is non-formulary Hx KEYSHA on CPAP: CPAP at bedtime Sinusitis Identified on brain MRI, likely chronic No s/s DVT Prophylaxis: SCDs Code Status: FULL CODE Disposition: plan for dc home tomorrow Patient seen in collaboration with Dr Morris. Please see addendum. I spent a total of 60 minutes coordinating, documenting and providing care for this patient excluding time spent in the performance of separately billed services or time spent by another provider/QHP. Admission and Anticipated Discharge Date Admission Date: April 07, 2025 Supervising Physician Co-Signing Physician Notes Patient is seen and examined at bedside. Patient had lumbar puncture today. Lumbar radiculopathy symptoms associated with weakness unchanged from yesterday. No new complaints. Family at bedside. Physical Exam: Vitals signs as noted above General Appearance:Moderately built and nourished, no apparent distress Head: normocephalic, Atraumatic Eyes: normal inspection, EOMI Neck: supple, Trachea midline Respiratory/Chest: Normal breath sounds, CTA, No accessory muscle use Cardiovascular: S1, S2, No murmur Abdomen/GI:Soft, Non tender, Bowel sounds present Extremities/Musculoskeletal:normal inspection, no edema Neurologic/Psych:AAOX3, grossly no focal neurological deficits Skin: normal color, warm Lumbar radiculopathy secondary to disc herniation Appreciate orthopedic spine input Continue IV Decadron, fall precautions PT OT as able Orthopedic spine currently recommending conservative management. Leukocytosis secondary to Decadron PT OT recommends return home Advised to follow-up with orthopedic spine on discharge Appreciate pain management input: Added gabapentin, plan to transition IV steroids to oral on discharge. Epidural injection likely outpatient. Suspected MS, optic neuritis Suspected vasculitis Had lumbar puncture today Follow-up CSF studies Needs follow-up with neurology, rheumatology on discharge I personally interviewed and examined the patient at bedside. I have reviewed the advanced practitioner's documentation on the date of service referred in note and agree with plan. Patient's care is coordinated with Anne MERINO. Please refer to the documentation above for details of patient's presentation and for discussion of other issues. I spent a total [id number] coordinating, documenting, and providing care for this patient excluding time spent in the performance of separately billed services or time spent by another provider/QHP. Subjective Patient seen sitting up in bed Reports weakness is about the same today Denies headaches, chest pain, SOB, abdominal pain, N/V/D Planning on LP today Review of Systems Review of Systems: All systems reviewed & are unremarkable except as noted in Subjective Physical Exam Physical Exam: General/Psych: WD/WN, sitting up in bed, NAD, conversing easily Head: normocephalic, atraumatic Eyes: normal inspection, PERRL, conjunctivae pink ENT: external ear and nose normal, oropharynx normal Neck: normal visual inspection, trachea midline Respiratory: normal respiratory effort, lungs clear to auscultation, no whee ze/rales/rhonchi, no accessory muscle use Cardiovascular: regular rate and rhythm, no murmur/rub/gallop, no JVD Extremities: no cyanosis or clubbing, normal peripheral pulses, no BLE edema Abdomen/GI: normal bowel sounds, soft, nontender Neurologic/MSK: A+Ox3, motor strength 4/5 in BLE, moves all extremities Skin: no rashes, normal color, warm and dry Results & Data Results & Data Vital Signs (Past 12 Hours) Vital Signs Temp Pulse Resp BP Pulse Ox O2 Del Method 04/10/25 14:50 36.7 C 61 16 117/72 97 Room Air 04/10/25 13:11 36.8 C 62 18 137/87 97 Room Air 04/10/25 06:55 36.7 C 48 L 16 107/68 98 Room Air Medications Administered Current Inpatient Medications Acetaminophen (Acetaminophen 325 Mg Tab) 650 mg PO Q4H PRN PRN Reason: pain/fever Stop: 05/07/25 15:26 Last Admin: 04/08/25 20:22 Dose: 650 mg Docusate Sodium (Docusate Sodium 100 Mg Cap) 100 mg PO BID [facility] Stop: 05/07/25 20:59 Last Admin: 04/10/25 09:23 Dose: 100 mg Gabapentin (Gabapentin 300 Mg Cap) 300 mg PO BID [facility] Stop: 05/10/25 08:59 Last Admin: 04/10/25 09:23 Dose: 300 mg Hydromorphone HCl (Hydromorphone Inj 0.5 Mg/0.5 Ml Syr) 0.5 mg IV Q3H PRN PRN Reason: Pain Stop: 04/21/25 13:25 Last Admin: 04/10/25 13:22 Dose: 0.5 mg Dexamethasone 8 mg/ Syringe 2 mls @ 1 mls/min IV Q8H CARL Stop: 05/07/25 15:29 Last Admin: 04/10/25 09:22 Dose: 1 mls/min Lorazepam (Lorazepam 0.5 Mg Tab) 0.5 mg PO Q4H PRN PRN Reason: Anxiety Stop: 05/07/25 13:24 Last Admin: 04/09/25 23:14 Dose: 0.5 mg Pantoprazole Sodium (Pantoprazole 40 Mg Tab) [facility] Stop: 05/08/25 08:59 Last Admin: 04/10/25 09:22 Dose: 40 mg Sertraline HCl (Sertraline Hcl 100 Mg Tablet) [facility] [place] Stop: 05/08/25 08:59 Last Admin: 04/10/25 09:22 Dose: 100 mg Sertraline HCl (Sertraline Hcl 50 Mg Tablet) [facility] [place] Stop: 05/08/25 08:59 Last Admin: 04/10/25 09:23 Dose: 25 mg Tizanidine HCl (Tizanidine Hcl 4 Mg Tablet) 4 mg PO TID PRN PRN Reason: muscle spasms Stop: 05/07/25 20:59 Last Admin: 04/10/25 06:10 Dose: 4 mg
[2025-04-10] MEDS: HYDROCODONE/ACETAMOPHEN 5/325MG TAB PO PRN (17:37)
[2025-04-11 06:42] LABS: Hematocrit (blood only) 41.4 % (37.0-47.0); Hemoglobin 13.9 g/dl (12.0-16.0); Mean Corpuscular Hemoglobin 30.7 pg (25.0-34.0); Mean Corpuscular Volume 91.4 fL (80.0-100.0); Platelet Count 282 K/uL (130-400); RDW Standard Deviation 41.1 fL (36.4-46.3); Red Blood Count 4.53 M/uL (4.20-5.40); White Blood Count 16.30 K/ul (4.8-10.8)
--- NOTE | 2025-04-11 08:11 | Pain Management Progress Note ---
Date of Service April 11, 2025 Assessment & Plan (1) Lumbar disc herniation with radiculopathy: (2) Abnormal magnetic resonance imaging of lumbar spine: Plan 1. Moderate L4-5 disc extrusion with impingement of her L5 root as a likely source of her current pain. Recommend continuation of IV/conversion to oral steroids. Can discharge on Medrol Dosepak or prednisone taper. 2. Continue gabapentin 300 mg p.o. twice daily for adjuvant pain control on discharge. 3. Continue tizanidine. 4. Recommend formal PT as an outpatient. 5. Recommend continued workup for multiple sclerosis and assessment of her lumbar puncture in combination with neurology to determine next steps. 6. Can consider outpatient left L4-5 transforaminal epidural steroid injection once lumbar puncture results return and next steps in MS workup has been determined. Patient is aware that we will schedule outpatient follow-up if MS workup is negative. Thank you for including us in the care of this patient. Will schedule outpatient follow-up in the pain management clinic. Case discussed with Dr. Martinez Admission and Anticipated Discharge Date Admission Date: April 07, 2025 Subjective Attending: Dr. Martinez Mrs. Covarrubias is a 39-year-old female who was admitted 04/07/2025 with back pain. She has a past medical history of lumbar radiculopathy with spinal fusion L5-S1 and previous epidural steroid injection with Dr. Henry and Dr. Zavala. MRI lumbar spine done after admission shows solid fusion at L5-S1 as well as disc herniation at L4-L5 with a fragment migrating caudally on the left. She was seen by orthospine who recommended conservative treatment at this time. Patient reports that she had an lumbar puncture performed yesterday to rule out MS. She has minimal headache and no significant pain at the puncture site. She reports that she continues with left-sided weakness and some foot drop. She has not been walking other than in the room. Pain continues to be between 36/10 with sharp shooting electric sensation. She has been starting gabapentin 300 mg p.o. twice daily as well as tizanidine and acetaminophen. She reports her pain is improved as compared to yesterday. Patient follows with orthospine Lumbar spine MRI 04/07/2025 Thoracic spine MRI 04/07/2025 Cervical spine MRI 04/08/2025 Lumbar puncture 04/10/2025 Previous intervention: Physical therapy, lumbar spine fusion, epidural steroid injection, gabapentin, oral steroids, muscle relaxants, exercise, stretching Patient denies any bowel or bladder incontinence. No saddle anesthesia. She has no unusual bleeding or bruising. She has no history of malignancy. Patient has no other constitutional complaints at this time. Physical Exam 2 Physical Exam: L REVIEW OF SYSTEMS: A total of 10 systems was reviewed and were negative other than as listed above in the HPI. L Physical Exam: Constitutional: Well-developed, well-nourished, healthy-appearing, normal weight Psych: Awake, alert, and oriented 3 with normal affect and mood. Memory appears grossly intact, resting comfortably on examination Skin: No evidence of edema, erythema or skin breakdown. No rashes, lesions, ulcers, or induration noted. Musculoskeletal: Head is normocephalic and atraumatic, gait deferred. Cervical: Lordotic curve: Normal Range of motion is slightly decreased with extension, flexion, side-bending, rotation Tenderness: Mildly tender over the axial midline Facets: No tenderness with Spurling maneuver or with direct palpation over the facet joints Strength: Strength is equal bilaterally with 4+ out of 5 strength in all planes Sensation of upper extremities: Intact bilaterally Myofascial spasm: Mild appreciable spasm in the paraspinal muscles and bilateral trapezius muscles. No discrete trigger points noted Thoracic: Kyphotic curve: Normal Tenderness: Nontender over the axial midline Lumbar: Lordotic curve: Decreased lumbar lordosis with a well-healed midline surgical incision. Band-Aid over lumbar puncture spot. No tenderness, bleeding, significant ecchymosis around the puncture Range of motion is decreased in all planes Tenderness: Moderately tender over the axial midline L4-S1 Facet provocation: Positive in the left L3-S1 region Straight leg raise: Positive bilaterally with notable weakness left greater than right (patient states that this is unchanged from prior. Strength: Bilaterally with 4+ out of 5 strength in all planes (exception 3 out of 5 for left EHL which patient states is chronic and pre-existing) Sensation of lower extremities: Intact bilaterally. Patient states his sensation is slightly less on the left as compared to the right Deep tendon reflexes: Rated at 3+ in bilateral L4 and S1 Myofascial spasm: Mild to moderate spasm. No discrete trigger points noted Greater trochanters: Nontender bilaterally Sacroiliac joints: Nontender bilaterally Pathologic reflexes noted: None Mild tremor noted Neuro: No nystagmus noted, the tongue is midline, pupils equal round and reactive to light, the patient is able to rotate their head bilaterally and move all extremities. Results (Pain Clinic) Laboratory Review Additional Comments: 04/11/25 05:57 04/09/25 05:28 Diagnostic Review MRI Findings: LMagnetic Resonance Report Patient: ROSSI COVARRUBIAS Admit Date: 04/07/25 MR#: [id number] Address1: [facility] [address] Acct ID:[id number] Address2: Date: 1985 [facility] Zip: [place] [address] Age: 39 Location: ED Sex: F Room/Bed: Att Phy: Diagnosis: LEG WEAKNESS,EXTREME BACK PAIN Berta Phy: PCP,NO Service Date: 04/07/25 Fam Phy: Interpreting Phy: Jefry Ibrahim MD Admit Phy: Ordering Phy: Prasanth Santana PA-C cc: ~ MRI OF THE LUMBAR SPINE WITHOUT CONTRAST CLINICAL HISTORY: Low back pain, leg weakness. COMPARISON STUDY: Lumbar spine MRI August 26, 2021. Lumbar spine fluoroscopic images August 28, 2021. TECHNIQUE: Utilizing a 1.5 Monet magnet and dedicated coil, multiplanar, multiecho imaging of the lumbar spine was performed without IV contrast. FINDINGS: For purposes of numbering on this exam, the L5-S1 disc space is assigned to axial image 15 of 16. There are no lumbar spine fractures. No marrow edema or marrow placement is present. There are postoperative findings consistent with L5-S1 decompression and fusion with interbody spacer placement. The conus terminates at the lower L1 level. Paravertebral soft tissues are unremarkable. L1-2: The central canal and neural foramen are patent. L2-3: There is mild disc space narrowing with minimal disc bulge. The findings have slightly progressed since MRI of August 26, 2021. Central canal neural foramen are patent L3-4: A small annular tear at tiny central disc protrusion is noted. The central canal and neural foramen are patent. L4-5: A moderate sized central/left paracentral disc extrusion with inferior subligamentous migration is developed since MRI of August 26, 2021. There is mild narrowing of the central canal and moderate narrowing of the left lateral recess with possible mass effect upon the descending left L5 nerve root. There is no neural foraminal stenosis. L5-S1: Expected postoperative findings are noted. There is no recurrent central canal or neural foraminal stenosis. IMPRESSION: 1. Expected findings following L5-S1 decompression and fusion. 2. Moderate-sized central/left paracentral disc extrusion with inferior subligamentous migration at L4-L5 which has developed since previous MRI. This results in mild central canal and moderate left lateral recess narrowing with possible mass effect upon the descending left L5 nerve root. 3. Otherwise, mild degenerative disc disease within the lumbar spine. ACT 112: Negative or not required by law. Electronically signed by: Jefry Ibrahim M.D. 04/07/2025 11:30 AM LMagnetic Resonance Report Patient: ROSSI COVARRUBIAS Admit Date: 04/07/25 MR#: [id number] Address1: [address] [place] [address] Acct ID:[id number] Address2: Date: 1985 [facility] Zip: [place] [address] Age: 39 Location: 3W Sex: Room/Bed: [facility] Att Phy: Ruperto Mars MD Diagnosis: B/L LEG NUMBNESS Berta Phy: PCP,NO Service Date: 04/07/25 Fam Phy: Interpreting Phy: Jennifer Powell MD Admit Phy: Ruperto Mars MD Ordering Phy: Lyndon Link CRNP cc: ~ Exam(s): MRI T SPINE W/WO Contrast IV Amt: 7.3mL Gadavist given existing IV EXAM: MR Thoracic Spine Without and With Intravenous Contrast CLINICAL HISTORY: Reason for exam: r/o ms. TECHNIQUE: Magnetic resonance images of the thoracic spine without and with intravenous contrast in multiple planes. CONTRAST: Patient received 7.3mL Gadavist given existing IV of IV contrast COMPARISON: No relevant prior studies available. FINDINGS: Vertebrae: There are 12 thoracic type vertebral bodies with a normal thoracic kyphosis. There is normal vertebral body height and alignment. The bone marrow signal is normal. No acute fracture. Discs/spinal canal/neural foramina: No acute findings. No significant disc disease. No spinal canal stenosis. Spinal cord: Unremarkable. Normal signal. No abnormal enhancement. Soft tissues: Unremarkable. IMPRESSION: Negative MRI of the thoracic spine. No evidence of demyelinating disease. Electronically signed by: Jennifer Powell MD 04/08/25 00:58 AM L Magnetic Resonance Report Patient: ROSSI COVARRUBIAS Admit Date: 04/07/25 MR#: [id number] Address1: [address] Acct ID:[id number] Address2: Date: 1985 [facility] Zip: [place] [address] Age: 39 Location: 3W Sex: F Room/Bed: [facility] Att Phy: Fab Morris MD Diagnosis: B/L LEG NUMBNESS Berta Phy: PCP,NO Service Date: 04/08/25 Fam Phy: Interpreting Phy: Martín Foley MDAdmit Phy: Ruperto Mars MD Ordering Phy: Lyndon Link CRNP cc: ~ EXAM: MR cervical spine wo/w con CLINICAL HISTORY: R/O Multiple sclerosis. TECHNIQUE: MRI of the cervical spine was performed with and without contrast. Sequences obtained include sagittal T1-weighted, T2-weighted, STIR (Short Tau Inversion Recovery), and axial T2-weighted sequences. Additional sequences such as gradient echo (GRE) or post-contrast T1-weighted image,s may have been included based on clinical indication. COMPARISON: No previous studies are available for comparison. FINDINGS: Vertebral Alignment: No evidence of fracture or subluxation. First-degree spondylolisthesis of C6 over C7. Mildly straightened cervical curve Mild spondylotic degenerative changes manifested by marginal anterior osteophytic lipping of C5-6 vertebral endplates. Vertebral Bodies and Intervertebral Discs: Normal vertebral body height and alignment. Intervertebral discs demonstrate normal hydration. [id number]-[id number] analysis: C2-C3: There is no significant disc pathology. Normal morphology of the ligamentum flavum. No arthropathy of the uncovertebral and zygapophyseal joints. No significant spinal canal stenosis C3-C4: There is no significant disc pathology. Normal morphology of the ligamentum flavum. No arthropathy of the uncovertebral and zygapophyseal joints. No significant spinal canal stenosis C4-C5: There is a 1.2 mm mild bi-posterolateral disc bulge/osteophyte complex causing mild neural foraminal stenosis with no spinal canal stenosis C5-C6: There is a diffuse disc bulge with osteophytic complex measuring 5.2 mm with inferior migration indenting the subarachnoid space and slightly encroaching on both exit neural foramina, causing bilateral moderate neural foraminal stenosis with mild spinal canal stenosis. C6-C7: There is a diffuse, broad-based disc bulge measuring 4 mm with superior migration indenting the subarachnoid space, causing bilateral mild neural foraminal stenosis. Normal morphology of the ligamentum flavum. No arthropathy of the uncovertebral and zygapophyseal joints. No significant spinal canal stenosis C7-T1: There is no significant disc pathology. Normal morphology of the ligamentum flavum. No arthropathy of the uncovertebral and zygapophyseal joints. No significant spinal canal stenosis Spinal Cord and Nerve Roots: The spinal cord demonstrates normal signal intensity and caliber. No evidence of cord compression or intradural pathology. Nerve roots appear unremarkable bilaterally. Soft Tissues: Paraspinal soft tissues appear normal without evidence of abnormal signal intensity or mass lesions. Vascular Structures: Normal appearance of the visualized vascular structures. No evidence of aneurysm, dissection, or significant atherosclerosis. Normal enhancement post-contrast. IMPRESSION: 1. No spinal cord abnormal signal areas. 2. Mild neck muscle spasm. 3. Cervical spine spondylodegenerative changes. 4. Multilevel cervical disc bulge and osteophyte complexes are more evident at C5-C6 and C6-C7 as described. Electronically signed by Martín Foley 04-08-2025 13:47 PM L Other Findings: Lumbar puncture 04/10/2025: Results are still pending Previous Records Review Previous Records: personally reviewed by me
--- NOTE | 2025-04-11 11:22 | XRay Report ---
SINGLE VIEW CHEST CLINICAL HISTORY: Pleuritic chest pain FINDINGS: An AP, portable, upright chest radiograph is compared to chest x-ray and chest CT dated 07/2021. The cardiomediastinal silhouette is unremarkable. The lungs and pleural spaces are clear. No pneumothorax is seen. The bony thorax is grossly intact. IMPRESSION: No active disease in the chest. ACT 112: Negative or not required by law. Electronically signed by: Johnathan Kaur M.D. 04/11/2025 11:21 AM
--- NOTE | 2025-04-11 15:42 | Hospitalist Progress Note ---
Date of Service April 11, 2025 Assessment & Plan (1) Lumbar radiculopathy: (2) KEYSHA on CPAP: (3) ADHD: (4) Anxiety: (5) Hypertension: Plan 39-year-old female with PMH significant for anxiety, ADHD, KEYSHA on CPAP, and history of lumbar surgery who presents to the ED on 04/07/2025 with complaints of worsening bilateral lower extremity weakness left greater than right and is admitted for lumbar disc herniation and MS work up. Lumbar radiculopathy L4-L5 disc extrusion Hx L5-S1 decompression and fusion: Decreased sensation and strength in bilateral lower extremities, L>R Lumbar MRI shows L4-L5 disc extrusion, possible mass effect on L5 nerve root Thoracic MRI negative for demyelinating disease Orthospine saw pt and recommending conservative tx with epidural injections for relief (as OPT); likely laminectomy with discectomy recommended Pain management consulted and recommending: gabapentin bid, tizanidine PRN, [place] PRN, steroid taper at dc Patient still having pain requiring IV dilaudid while inpatient - consider reaching out to pain management in am for additional recs for pain meds PT/OT recommending dc to home Plan for dc home tomorrow if patient feels ready Optic neuritis Possible MS Neuropathy, tremors, generalized weakness; worse in lower extremities Following with neurology OPT with [facility] Dr Mireles Reports autoimmune workup outpatient was negative, vitamin B12 injections every 3 months MRI/cervical spine results: 1. No spinal cord abnormal signal areas. 2. Mild neck muscle spasm. 3. Cervical spine spondylodegenerative changes. 4. Multilevel cervical disc bulge and osteophyte complexes are more evident at C5-C6 and C6- C7. Brain MRI: 1. Faint tiny bilateral smita-trigonal high T2/FLAIR signal foci, single focus on each side, with no enhancement or diffusion restriction. could be non-specific, yet Multiple sclerosis could not be ruled out, CSF analysis along with follow-up are needed. 2. Newly seen mild left maxillary and ethmoidal sinusitis. LP completed 04/11 with CSF lactate, LDH, lyme DNA PCR, MS panel pending Hx ADHD/anxiety: Continue home Zoloft Adderall is non-formulary Hx KEYSHA on CPAP: CPAP at bedtime Sinusitis Identified on brain MRI, likely chronic No s/s DVT Prophylaxis: SCDs Code Status: FULL CODE Disposition: plan for dc home tomorrow Patient seen in collaboration with Dr Morris. Please see addendum. I spent a total of 60 minutes coordinating, documenting and providing care for this patient excluding time spent in the performance of separately billed services or time spent by another provider/QHP. Admission and Anticipated Discharge Date Admission Date: April 07, 2025 Supervising Physician Co-Signing Physician Notes Patient is seen and examined at bedside. States having ongoing intermittent pleuritic chest pain. Chest x-ray showed no acute process. No significant change in lumbar radiculopathy symptoms. Family at bedside. Physical Exam: Vitals signs as noted above General Appearance:Moderately built and nourished, no apparent distress Head: normocephalic, Atraumatic Eyes: normal inspection, EOMI Neck: supple, Trachea midline Respiratory/Chest: Normal breath sounds, CTA, No accessory muscle use Cardiovascular: S1, S2, No murmur Abdomen/GI:Soft, Non tender, Bowel sounds present Extremities/Musculoskeletal:normal inspection, no edema Neurologic/Psych:AAOX3, grossly no focal neurological deficits Skin: normal color, warm Lumbar radiculopathy secondary to disc herniation Appreciate orthopedic spine input Continue IV Decadron, fall precautions>> plan to transition to prednisone taper course on discharge PT OT as able Orthopedic spine currently recommending conservative management. Leukocytosis secondary to Decadron PT OT recommends return home Appreciate pain management input: Added gabapentin, tizanidine, [place]on as needed, epidural injection likely outpatient. Advised to follow-up with pain management, orthopedic spine on discharge Minimize IV narcotics as able Suspected MS, optic neuritis Suspected vasculitis S/P lumbar puncture y Follow-up CSF studies-Pending Needs follow-up with neurology, rheumatology on discharge I personally interviewed and examined the patient at bedside. I have reviewed the advanced practitioner's documentation on the date of service referred in note and agree with plan. Patient's care is coordinated with Anne MERINO. Please refer to the documentation above for details of patient's presentation and for discussion of other issues. I spent a total [id number] coordinating, documenting, and providing care for this patient excluding time spent in the performance of separately billed services or time spent by another provider/QHP. Subjective Patient seen sitting up in bed Reports no improvement in leg radiculopathy, generalized pain, weakness Notes intermittent headache since the LP yesterday Reports intermittent pleuritic chest pain x3 episodes since yesterday Denies SOB, abdominal pain, N/V/D Review of Systems Review of Systems: All systems reviewed & are unremarkable except as noted in Subjective Physical Exam Physical Exam: General/Psych: WD/WN, sitting up in bed, NAD, conversing easily Head: normocephalic, atraumatic Eyes: normal inspection, PERRL, conjunctivae pink ENT: external ear and nose normal, oropharynx normal Neck: normal visual inspection, trachea midline Respiratory: normal respiratory effort, lungs clear to auscultation, no wheeze/rales/rhonchi, no accessory muscle use Cardiovascular: regular rate and rhythm, no murmur/rub/gallop, no JVD Extremities: no cyanosis or clubbing, normal peripheral pulses, no BLE edema Abdomen/GI: normal bowel sounds, soft, nontender Neurologic/MSK: A+Ox3, motor strength 4/5 in BLE, moves all extremities Skin: no rashes, normal color, warm and dry Results & Data Results & Data Vital Signs (Past 12 Hours) Vital Signs Temp Pulse Resp BP Pulse Ox O2 Del Method 04/11/25 07:15 36.6 C 56 L 16 104/68 99 Room Air Laboratory Results Short CBC 04/11/25 Range/Units 05:57 WBC 16.30 H (4.8-10.8) K/ul Hgb 13.9 (12.0-16.0) g/dl Hct 41.4 (37.0-47.0) % Plt Count 282 (130-400) K/uL I have independently reviewed and interpreted patient's labs including CBC Medications Administered Current Inpatient Medications Acetaminophen (Acetaminophen 325 Mg Tab) 650 mg PO Q4H PRN PRN Reason: pain/fever Stop: 05/07/25 15:26 Last Admin: 04/11/25 15:09 Dose: 650 mg Hydrocodone Bitart/Acetaminophen (Hydrocodone/Acetamophen 5/325mg Tab) 1 tab PO Q4H PRN PRN Reason: Pain not relieved by tylenol Stop: 04/24/25 16:09 Last Admin: 04/11/25 14:41 Dose: 1 tab Docusate Sodium (Docusate Sodium 100 Mg Cap) 100 mg PO BID CARL Stop: 05/07/25 20:59 Last Admin: 04/11/25 07:34 Dose: Not Given Gabapentin (Gabapentin 300 Mg Cap) 300 mg PO BID [facility] Stop: 05/10/25 08:59 Last Admin: 04/11/25 07:33 Dose: 300 mg Hydromorphone HCl (Hydromorphone Inj 0.5 Mg/0.5 Ml Syr) 0.5 mg IV Q6H PRN PRN Reason: Severe Pain (Scale 7, 8, 9,10) Stop: 04/25/25 15:29 Dexamethasone 8 mg/ Syringe 2 mls @ 1 mls/min IV Q8H CARL Stop: 05/07/25 15:29 Last Admin: 04/11/25 07:34 Dose: 1 mls/min Lorazepam (Lorazepam 0.5 Mg Tab) 0.5 mg PO Q4H PRN PRN Reason: Anxiety Stop: 05/07/25 13:24 Last Admin: 04/10/25 22:45 Dose: 0.5 mg Pantoprazole Sodium (Pantoprazole 40 Mg Tab) 40 mg PO QAM [facility] Stop: 05/08/25 08:59 Last Admin: 04/11/25 07:34 Dose: 40 mg Sertraline HCl (Sertraline Hcl 100 Mg Tablet) 100 mg PO QAM [facility] Stop: 05/08/25 08:59 Last Admin: 04/11/25 07:33 Dose: 100 mg Sertraline HCl (Sertraline Hcl 50 Mg Tablet) 25 mg PO QAM [facility] Stop: 05/08/25 08:59 Last Admin: 04/11/25 07:33 Dose: 25 mg Tizanidine HCl (Tizanidine Hcl 4 Mg Tablet) 4 mg PO TID PRN PRN Reason: muscle spasms Stop: 05/07/25 20:59 Last Admin: 04/11/25 07:33 Dose: 4 mg
[2025-04-11] MEDS: HYDROmorphone INJ 0.5 MG/0.5 ML SYR IV PRN (19:44)
--- NOTE | 2025-04-12 09:36 | Pain Management Progress Note ---
Date of Service April 12, 2025 Assessment & Plan (1) Lumbar disc herniation with radiculopathy: (2) Abnormal magnetic resonance imaging of lumbar spine: Plan 1. Moderate L4-5 disc extrusion with impingement of her L5 root as a likely source of her current pain. Recommend continuation of IV/conversion to oral steroids. Can discharge on Medrol Dosepak or prednisone taper. 2. Continue gabapentin 300 mg p.o. twice daily for adjuvant pain control on discharge. 3. Continue tizanidine. 4. Recommend formal PT as an outpatient. 5. Recommend continued workup for multiple sclerosis and assessment of her lumbar puncture in combination with neurology to determine next steps. Awaiting results from lumbar puncture 6. Can consider outpatient left L4-5 transforaminal epidural steroid injection once lumbar puncture results return and next steps in MS workup has been determined. Patient is aware that we will schedule outpatient follow-up with her. The office will call her to coordinate. Thank you for including us in the care of this patient. Will sign off and schedule outpatient follow-up in the pain management clinic. Case discussed with Dr. Martinez Admission and Anticipated Discharge Date Admission Date: April 07, 2025 Subjective Attending: Dr. Arcos Mrs. Covarrubias is a 39 yo female admitted for back pain. Patient seen and examined in room 352-2. She reports 70% improvement in her pain since admission. She continues with B/L LE weakness, left > right. Persistent left foot drop. No falls reported. She is tolerating Gabapentin and steroids well. She also reports relief from Tizanidine. She has been walking in her room but has not ambulated in the hallways. Physical Exam 2 Physical Exam: L REVIEW OF SYSTEMS: A total of 10 systems was reviewed and were negative other than as listed above in the HPI. L Physical Exam: Constitutional: Well-developed, well-nourished, healthy-appearing, normal weight Psych: Awake, alert, and oriented 3 with normal affect and mood. Memory appears grossly intact, resting comfortably on examination Skin: No evidence of edema, erythema or skin breakdown. No rashes, lesions, ulcers, or induration noted. Musculoskeletal: Head is normocephalic and atraumatic, gait deferred. Cervical: Lordotic curve: Normal Range of motion is slightly decreased with extension, flexion, side-bending, rotation Tenderness: Mildly tender over the axial midline Facets: No tenderness with Spurling maneuver or with direct palpation over the facet joints Strength: Strength is equal bilaterally with 4+ out of 5 strength in all planes Sensation of upper extremities: Intact bilaterally Myofascial spasm: Mild appreciable spasm in the paraspinal muscles and bilateral trapezius muscles. No discrete trigger points noted Thoracic: Kyphotic curve: Normal Tenderness: Nontender over the axial midline Lumbar: Lordotic curve: Decreased lumbar lordosis with a well-healed midline surgical incision. Band-Aid over lumbar puncture spot. Minimal tenderness, bleeding, significant ecchymosis around the puncture Range of motion is decreased in all planes secondary to weakness Tenderness: Moderately tender over the axial midline L4-S1 Facet provocation: Positive in the left L3-S1 region. Minimally tender on the right Straight leg raise: Positive bilaterally with notable weakness left greater than right (patient states that this is unchanged from prior). Strength: Bilaterally with 4+ out of 5 strength in all planes (exception 3 out of 5 for left EHL which patient states is chronic and pre-existing) Sensation of lower extremities: Intact bilaterally. Patient states his sensation is slightly less on the left as compared to the right Deep tendon reflexes: Rated at 3+ in bilateral L4 and S1 Myofascial spasm: Mild to moderate spasm. No discrete trigger points noted Greater trochanters: Nontender bilaterally Sacroiliac joints: Nontender bilaterally Pathologic reflexes noted: None Mild tremor noted Neuro: No nystagmus noted, the tongue is midline, pupils equal round and reactive to light, the patient is able to rotate their head bilaterally and move all extremities. Results (Pain Clinic) Laboratory Review Additional Comments: 04/11/25 05:57 04/09/25 05:28 Diagnostic Review MRI Findings: Lumbar Spine MRI 04/07/25 10:14 MRI OF THE LUMBAR SPINE WITHOUT CONTRAST CLINICAL HISTORY: Low back pain, leg weakness. COMPARISON STUDY: Lumbar spine MRI August 26, 2021. Lumbar spine fluoroscopic images August 28, 2021. TECHNIQUE: Utilizing a 1.5 Monet magnet and dedicated coil, multiplanar, multiecho imaging of the lumbar spine was performed without IV contrast. FINDINGS: For purposes of numbering on this exam, the L5-S1 disc space is assigned to axial image 15 of 16. There are no lumbar spine fractures. No marrow edema or marrow placement is present. There are postoperative findings consistent with L5-S1 decompression and fusion with interbody spacer placement. The conus terminates at the lower L1 level. Paravertebral soft tissues are unremarkable. L1-2: The central canal and neural foramen are patent. L2-3: There is mild disc space narrowing with minimal disc bulge. The findings have slightly progressed since MRI of August 26, 2021. Central canal neural foramen are patent L3-4: A small annular tear at tiny central disc protrusion is noted. The central canal and neural foramen are patent. L4-5: A moderate sized central/left paracentral disc extrusion with inferior subligamentous migration is developed since MRI of August 26, 2021. There is mild narrowing of the central canal and moderate narrowing of the left lateral recess with possible mass effect upon the descending left L5 nerve root. There is no neural foraminal stenosis. L5-S1: Expected postoperative findings are noted. There is no recurrent central canal or neural foraminal stenosis. IMPRESSION: 1. Expected findings following L5-S1 decompression and fusion. 2. Moderate-sized central/left paracentral disc extrusion with inferior subligamentous migration at L4-L5 which has developed since previous MRI. This results in mild central canal and moderate left lateral recess narrowing with possible mass effect upon the descending left L5 nerve root. 3. Otherwise, mild degenerative disc disease within the lumbar spine. ACT 112: Negative or not required by law. Electronically signed by: Jefry Ibrahim M.D. 04/07/2025 11:30 AM Lumbar Spine X-Ray 04/07/25 10:14 LUMBAR SPINE 5 VIEWS CLINICAL HISTORY: Low back pain. FINDINGS: 5 views of the lumbar spine are correlated with abdominal CT dated 10/24/2023 and MRI of lumbar spine dated 04/07/2025. The skeletal structures are well mineralized. There is no radiographic evidence of fracture or malalignment. Vertebral body height and alignment are maintained. There is minimal dextrocurvature centered at L3. There has been discectomy at L5-S1 with laminectomy and posterior fusion at this level. Interpedicular screws are in place. The orthopedic hardware appears intact. The transverse processes are grossly intact. There is no radiographic evidence of spondylolysis. The remaining disc spaces are maintained. The visualized bony pelvis appears intact. Mild sclerotic change is noted in the sacroiliac joints. There is a nonobstructed abdominal bowel gas pattern. IMPRESSION: 1. No acute bony abnormality is seen involving the lumbar spine. 2. Postsurgical changes above. ACT 112: Negative or not required by law. Electronically signed by: Johnathan Kaur M.D. 04/07/2025 11:41 AM Ankle Brachial Index 04/07/25 13:39 ULTRASOUND ANKLE BRACHIAL INDICES CLINICAL HISTORY: Peripheral arterial disease. COMPARISON STUDY: No priors. FINDINGS: Ankle brachial indices were assessed and ultrasound. Right brachial pressure measures 130 and left brachial pressure measured 147. Pressures in the right posterior tibial artery measured 144 for an JORGE of 0.98 and pressures in the right dorsalis pedis measure 131 for an JORGE 0.89. Pressures in the left posterior tibial artery measure 143 for an JORGE of 0.97 impression exam the left dorsalis pedis measure 111 for an JORGE of 0.76. IMPRESSION: Ankle-brachial indices as above. Electronically signed by: Johnathan Kaur M.D. 04/07/2025 3:55 PM Thoracic Spine MRI 04/07/25 15:27 Exam(s): MRI T SPINE W/WO Contrast IV Amt: 7.3mL Gadavist given existing IV EXAM: MR Thoracic Spine Without and With Intravenous Contrast CLINICAL HISTORY: Reason for exam: r/o ms. TECHNIQUE: Magnetic resonance images of the thoracic spine without and with intravenous contrast in multiple planes. CONTRAST: Patient received 7.3mL Gadavist given existing IV of IV contrast COMPARISON: No relevant prior studies available. FINDINGS: Vertebrae: There are 12 thoracic type vertebral bodies with a normal thoracic kyphosis. There is normal vertebral body height and alignment. The bone marrow signal is normal. No acute fracture. Discs/spinal canal/neural foramina: No acute findings. No significant disc disease. No spinal canal stenosis. Spinal cord: Unremarkable. Normal signal. No abnormal enhancement. Soft tissues: Unremarkable. IMPRESSION: Negative MRI of the thoracic spine. No evidence of demyelinating disease. Electronically signed by: Jennifer Powell MD 04/08/25 00:58 AM Lumbar Spine X-Ray 04/07/25 16:29 Technique: 3 views of the lumbar spine are submitted for review Findings: There is scoliosis. No fracture is identified. There is an anterior and posterior fusion of L5 and S1 with posterior fixation rods and pedicle screws and prosthetic disc placement. There is no definite sign of instrumentation failure. There is disc space narrowing from L2-3 through L4-5. No focal osseous lesion is seen. There is constipation. Impression: 1. L5-S1 fusion 2. Degenerative disc disease from L2-3 through L4-5 3. Scoliosis Electronically signed by Guzman Rodriguez 04-07-2025 5:56 PM Brain MRI 04/08/25 15:27 EXAM: MR brain wo/w con CLINICAL HISTORY: R/O Multiple sclerosis. TECHNIQUE: MRI of the brain was performed with and without intravenous contrast administration (specify contrast agent and dosage). Sequences obtained include pre-contrast and post-contrast T1-weighted, T2-weighted, FLAIR (Fluid-Attenuated Inversion Recovery), DWI (Diffusion-Weighted Imaging), and ADC (Apparent Diffusion Coefficient) sequences. COMPARISON: 03/01/2020. FINDINGS: Brain Parenchyma: Faint tiny bilateral smita-trigonal high T2/FLAIR signal foci, single focus on each side, with no enhancement or diffusion restriction. No evidence of acute infarction or hemorrhage. Gonzales-white matter differentiation is preserved. No abnormal signal intensity lesions were identified. Post-Contrast Findings: No abnormal enhancement of the brain parenchyma or meninges. Ventricles and Sulci: The ventricular system is within normal limits without evidence of hydrocephalus. Sulci and cisternal spaces are age-appropriate. Brainstem and Cerebellum: Normal appearance of the brainstem and cerebellum without focal lesions or abnormal enhancement. Vessels: Intracranial vessels appear normal without evidence of vascular malformations or aneurysms. Skull and Calvarium: No evidence of skull vault lesions or abnormal marrow signal within the calvarium. Deviated bony nasal septum to the right side Newly seen mild left maxillary and ethmoidal sinusitis IMPRESSION: MRI of the brain with and without contrast: 1. Faint tiny bilateral smita-trigonal high T2/FLAIR signal foci, single focus on each side, with no enhancement or diffusion restriction. could be non-specific, yet Multiple sclerosis could not be ruled out, CSF analysis along with follow-up are needed. 2. Newly seen mild left maxillary and ethmoidal sinusitis. Electronically signed by Martín Foley 04-08-2025 13:41 PM Cervical Spine MRI 04/08/25 15:27 EXAM: MR cervical spine wo/w con CLINICAL HISTORY: R/O Multiple sclerosis. TECHNIQUE: MRI of the cervical spine was performed with and without contrast. Sequences obtained include sagittal T1-weighted, T2-weighted, STIR (Short Tau Inversion Recovery), and axial T2-weighted sequences. Additional sequences such as gradient echo (GRE) or post-contrast T1-weighted image,s may have been included based on clinical indication. COMPARISON: No previous studies are available for comparison. FINDINGS: Vertebral Alignment: No evidence of fracture or subluxation. First-degree spondylolisthesis of C6 over C7. Mildly straightened cervical curve Mild spondylotic degenerative changes manifested by marginal anterior osteophytic lipping of C5-6 vertebral endplates. Vertebral Bodies and Intervertebral Discs: Normal vertebral body height and alignment. Intervertebral discs demonstrate normal hydration. [id number] analysis: C2-C3: There is no significant disc pathology. Normal morphology of the ligamentum flavum. No arthropathy of the uncovertebral and zygapophyseal joints. No significant spinal canal stenosis C3-C4: There is no significant disc pathology. Normal morphology of the ligamentum flavum. No arthropathy of the uncovertebral and zygapophyseal joints. No significant spinal canal stenosis C4-C5: There is a 1.2 mm mild bi-posterolateral disc bulge/osteophyte complex causing mild neural foraminal stenosis with no spinal canal stenosis C5-C6: There is a diffuse disc bulge with osteophytic complex measuring 5.2 mm with inferior migration indenting the subarachnoid space and slightly encroaching on both exit neural foramina, causing bilateral moderate neural foraminal stenosis with mild spinal canal stenosis. C6-C7: There is a diffuse, broad-based disc bulge measuring 4 mm with superior migration indenting the subarachnoid space, causing bilateral mild neural foraminal stenosis. Normal morphology of the ligamentum flavum. No arthropathy of the uncovertebral and zygapophyseal joints. No significant spinal canal stenosis C7-T1: There is no significant disc pathology. Normal morphology of the ligamentum flavum. No arthropathy of the uncovertebral and zygapophyseal joints. No significant spinal canal stenosis Spinal Cord and Nerve Roots: The spinal cord demonstrates normal signal intensity and caliber. No evidence of cord compression or intradural pathology. Nerve roots appear unremarkable bilaterally. Soft Tissues: Paraspinal soft tissues appear normal without evidence of abnormal signal intensity or mass lesions. Vascular Structures: Normal appearance of the visualized vascular structures. No evidence of aneurysm, dissection, or significant atherosclerosis. Normal enhancement post-contrast. IMPRESSION: 1. No spinal cord abnormal signal areas. 2. Mild neck muscle spasm. 3. Cervical spine spondylodegenerative changes. 4. Multilevel cervical disc bulge and osteophyte complexes are more evident at C5-C6 and C6-C7 as described. Electronically signed by Martín Foley 04-08-2025 13:47 PM L Lumbar Puncture 04/10/25 08:02 LUMBAR PUNCTURE UNDER FLUOROSCOPY CLINICAL HISTORY: Optic neuritis PROCEDURE: Procedure and risks were explained. Informed consent was obtained. A final timeout was completed. The patient was placed prone on the fluoroscopic exam table. The lower lumbar region was prepped and draped in sterile fashion. 1% lidocaine was utilized for skin anesthesia. Utilizing fluoroscopic guidance, a 22-gauge Sprotte spinal needle was advanced into the intrathecal space at the L5 laminectomy site. Fluoroscopic spot images were obtained. 8 mL of clear CSF fluid was removed and sent to lab for analysis. The needle was removed and Band-Aid applied. The patient tolerated the procedure well. Vital signs will be monitored postprocedure. Fluoroscopy time 4 seconds. Study dosed is 3.37 mGy. IMPRESSION: Lumbar puncture as above. Performed, dictated, and signed by Jesse Chin PA-C; to be co-signed by Dr. Abran Castellanos. Electronically signed by: Abran Castellanos M.D. 04/10/2025 2:58 PM Previous Records Review Previous Records: personally reviewed by
--- NOTE | 2025-04-12 14:31 | Neurology Consultation ---
Date of Consultation April 12, 2025 Assessment & Plan (1) Leg weakness, bilateral: Concern for reported optic neuritis and possible MS variant agree with continued workup Recommend solumedrol 1 gram daily x 3 to 5 days Recommend repeat MRI brain/orbits with and without contrast after 3 days of high dose steroids Continue frequent neurological assessments Obtain stat CT brain without contrast for any acute neurological decline Continue to monitor/control blood pressure & blood glucose Continue to monitor telemetry closely Recommend ZioPatch at DC if no evidence of arrhythmia during inpatient monitoring Continue to monitor renal and hepatic function, keep euvolemic Okay from neurology perspective for VTE prophylaxis PT/OT/SLT to eval and treat No driving per [place] state law following events of full syncope/complete loss of consciousness Plan for continued outpatient follow up with neurology as previously planned Telehealth Consultation Telehealth Information Telehealth Information: I performed this visit using a real-time telehealth connection between my location and the patients location ([facility]). After connecting through interactive tele-video, patient was identified by name and date of and/or wristband check.Patient (or authorized healthcare retail representative) was informed that this was a telemedicine visit and it was being conducted confidentially over secure lines. My office door was closed and no one else was present in the room with me.Patient (or authorized healthcare retail representative) provided consent to proceed with the visit, expressed an understanding of privacy and security of the telemedicine visit, and gave permission to have a hospital retail representative in the room in order to assist with the visit and to conduct portions of the visit, as needed. I informed the patient (or authorized healthcare retail representative) that I reviewed their record and presented the opportunity for them to ask any questions regarding the visit today. The patient agreed to participate. History of Present Illness Reason for Consultation: BLE weakness & decreased sensation Requesting Physician: Dr Thompson Attending Physician: Jefferson Thompson MD History of Present Illness 39yo right handed female has been undergoing workup outpatient due to concern for possible MS. She reports family hx of MS in her sister. Patient reports she was at her eye doctor and was told she had optic neuritis. She has a hx of lumbar radiculopathy and has undergone L4-5-S-1 fusion in the past. She reports continued BLE sensory changes and weakness that she reports fluctuates. She has undergone MRI lumbar spine and orthopedic consultation during this hospitalization. She reports she does not want to undergo surgery and has elected for conservative management. She has been receiving low dose steroids and believes her vision has improved. She has undergone MRI brain and cervical spine as well as a lumbar puncture due to reported recommendations of her outpatient neurology team for which she states she has been recommended to see rheumatology and cardiology as she has had episodes of complete loss of consciousness/full syncope. I have informed her of no driving following episodes of syncope. 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 I have reviewed and discussed my recommendation to undergo treatment with high dose solu medrol and repeat MRI brain/orbits to identify any potential indication of or resolution of optic neuritis for which she is in agreement. I have discussed recommendation with primary/hospitalist team as above and also including repeating serum vit D level as patient reports her last one was 8 but has not yet been instructed to supplement with PO vit D. She has also undergone LP for which some CSF studies remain pending. I have performed televideo consultation. She is alert & oriented; able to answer all questions appropriately, name objects on televideo monitor, repeat phrases and perform complex/embedded commands without deficit. Neurological exam is non lateralizing/nonfocal in terms of motor strength and coordination. Allergies Allergy/AdvReac Type Severity Reaction Status Date / Time bupropion [From Wellbutrin] Allergy Severe Stroke Unverified 04/07/25 12:33 like symptoms bee venom protein (honey bee) Allergy Anaphylaxis Verified 04/07/25 12:33 latex Allergy Hives Verified 04/07/25 12:33 Home Medications Medication Instructions Recorded Confirmed Type epinephrine 0.3 mg/0.3 mL 0.3 mg IM Q4H PRN Allergic Reaction 08/26/21 04/07/25 History injection, auto-injector multivitamin 1 tab PO DAILY 08/26/21 04/07/25 History calcium citrate 500 mg PO QAM 10/18/23 04/07/25 History omeprazole 20 mg capsule,delayed 20 mg PO QAM 10/18/23 04/07/25 History release sertraline 100 mg tablet (Zoloft) 100 mg PO QAM 10/18/23 04/07/25 History dextroamphetamine sulfate 15 mg 30 mg PO QAM 04/07/25 04/07/25 History capsule,extended release dextroamphetamine-amphetamine 10 10 mg PO QDL PRN Workload 04/07/25 04/07/25 History mg tablet sertraline 25 mg tablet (Zoloft) 25 mg PO QAM 04/07/25 04/07/25 History gabapentin 300 mg capsule 300 mg PO BID #60 caps 04/11/25 Rx hydrocodone 5 mg-acetaminophen 325 1 tab PO Q4H PRN severe pain 04/11/25 Rx mg tablet (scale score 7-10) #14 tabs prednisone 10 mg tablet 10 mg PO DAILY #22 tabs 04/11/25 Rx tizanidine 4 mg tablet 4 mg PO TID PRN muscle spasticity 04/11/25 Rx #30 tabs Patient History Medical History (Updated 04/12/25 @ 14:31 by Saul Diez DO) Lumbar disc herniation with radiculopathy KEYSHA on CPAP Allergic rhinitis ADHD Anxiety Hypertension Hepatic steatosis Migraines Surgical History (Updated 04/10/25 @ 15:58 by Tati Martinez DO) History of abdominoplasty History of breast augmentation History of lumbar fusion L5-S1 H/O section Status post laparoscopic hysterectomy H/O adenoidectomy H/O oophorectomy H/O sinus surgery Family History Grandfather Diabetes Social History Smoking Status: Never smoker Second Hand Exposure: No; Do You Dip or Chew Tobacco: No; Hx Alcohol Use: No Hx Substance Use: No Preferred Language: Tajik Communication Ability: Effective Can Cleaner Required: No Beliefs That Will Affect Care: None marital status: Current Living Situation: Spouse How many Children do You have: 1 Feels Safe at Home: Yes Assistive Devices: Cane Physical Exam Neurological Examination: Mental Status: Awake and alert. Oriented to person, place, and time. Fluency naming repetition and comprehension appear grossly intact. Affect remains appropriate. CN testing: I: Deferred II: Reports no changes in visual acuity III/IV/: No evidence of gaze preference, hippus, nystagmus or roving eye movements V: Facial sensation reportedly grossly intact to light touch bilaterally VII: Facial movements appear without evidence of asymmetry VIII: Hearing appears grossly intact to loud voice bilaterally IX/X: Palate is unable to be accurately visualized XI: Shoulder shrug appears symmetric/ grossly intact bilaterally XII: Tongue protrudes midline without evidence of biting Motor exam: Strength appears grossly intact in all extremities- able to move spontaneously and antigravity without overt evidence of drift. Tone: Unable to accurately assess via telemedicine Sensory: Sensation is difficult to accurately assess at this time. Coordination: No apparent evidence of dysmetria or dysdiadochokinesia Reflexes: Unable to accurately assess via telemedicine Gait: Deferred Results & Data Vital Signs (Past 12 Hours) Vital Signs Temp Pulse Resp BP Pulse Ox O2 Del Method 04/12/25 07:06 36.7 C 68 16 112/71 98 Room Air Medications Administered Home Medications Medication Instructions Recorded Confirmed Last Taken epinephrine 0.3 mg/0.3 mL 0.3 mg IM Q4H PRN Allergic Reaction 08/26/21 04/07/25 Unknown injection, auto-injector multivitamin 1 tab PO DAILY 08/26/21 04/07/25 04/06/25 calcium citrate 500 mg PO QAM 10/18/23 04/07/25 04/06/25 omeprazole 20 mg capsule,delayed 20 mg PO QAM 10/18/23 04/07/25 04/07/25 release sertraline 100 mg tablet (Zoloft) 100 mg PO QAM 10/18/23 04/07/25 04/07/25 dextroamphetamine sulfate 15 mg 30 mg PO QAM 04/07/25 04/07/25 04/06/25 capsule,extended release dextroamphetamine-amphetamine 10 10 mg PO QDL PRN Workload 04/07/25 04/07/25 Unknown mg tablet sertraline 25 mg tablet (Zoloft) 25 mg PO QAM 04/07/25 04/07/25 04/07/25 gabapentin 300 mg capsule 300 mg PO BID #60 caps 04/11/25 Unknown hydrocodone 5 mg-acetaminophen 325 1 tab PO Q4H PRN severe pain 04/11/25 Unknown mg tablet (scale score 7-10) #14 tabs prednisone 10 mg tablet 10 mg PO DAILY #22 tabs 04/11/25 Unknown tizanidine 4 mg tablet 4 mg PO TID PRN muscle spasticity 04/11/25 Unknown #30 tabs Active Medications Generic Name Dose Route Start Last Admin Trade Name Freq PRN Reason Stop Dose Admin Acetaminophen 650 mg 04/07/25 15:27 04/11/25 23:54 Acetaminophen 325 Mg Tab PO 05/07/25 15:26 650 mg Q4H PRN Administration pain/fever Hydrocodone Bitart/Acetaminophen 1 tab 04/10/25 16:10 04/12/25 11:51 Hydrocodone/Acetamophen 5/325mg Tab PO 04/24/25 16:09 1 tab Q4H PRN Administration Pain not relieved by tylenol Docusate Sodium 100 mg 04/07/25 21:00 04/12/25 08:18 Docusate Sodium 100 Mg Cap PO 05/07/25 20:59 100 mg BID CARL Administration Gabapentin 300 mg 04/10/25 09:00 04/12/25 08:18 Gabapentin 300 Mg Cap PO 05/10/25 08:59 300 mg BID CARL Administration Hydromorphone HCl 0.5 mg 04/11/25 15:30 04/12/25 14:00 Hydromorphone Inj 0.5 Mg/0.5 Ml Syr IV 04/25/25 15:29 0.5 mg Q6H PRN Administration Severe Pain (Scale 7, 8, 9,10) Dexamethasone 8 mg/ Syringe 2 mls @ 1 mls/min 04/07/25 15:30 04/12/25 08:18 IV 05/07/25 15:29 1 mls/min Q8H CARL Administration Lorazepam 0.5 mg 04/07/25 13:25 04/12/25 08:27 Lorazepam 0.5 Mg Tab PO 05/07/25 13:24 0.5 mg Q4H PRN Administration Anxiety Pantoprazole Sodium 40 mg 04/08/25 09:00 04/12/25 08:18 Pantoprazole 40 Mg Tab PO 05/08/25 08:59 40 mg QAM CARL Administration Sertraline HCl 100 mg 04/08/25 09:00 04/12/25 08:18 Sertraline Hcl 100 Mg Tablet PO 05/08/25 08:59 100 mg QAM CARL Administration Sertraline HCl 25 mg 04/08/25 09:00 04/12/25 08:18 Sertraline Hcl 50 Mg Tablet PO 05/08/25 08:59 25 mg QAM CARL Administration Tizanidine HCl 4 mg 04/07/25 16:23 04/12/25 08:18 Tizanidine Hcl 4 Mg Tablet PO 05/07/25 20:59 4 mg TID PRN Administration muscle spasms
--- NOTE | 2025-04-12 15:30 | Hospitalist Progress Note ---
Date of Service April 12, 2025 Assessment & Plan (1) Lumbar radiculopathy: (2) KEYSHA on CPAP: (3) ADHD: (4) Anxiety: (5) Hypertension: Plan 39-year-old female with PMH significant for anxiety, ADHD, KEYSHA on CPAP, and history of lumbar surgery who presents to the ED on 04/07/2025 with complaints of worsening bilateral lower extremity weakness left greater than right and is admitted for lumbar disc herniation and MS work up. Lumbar radiculopathy L4-L5 disc extrusion Hx L5-S1 decompression and fusion: Decreased sensation and strength in bilateral lower extremities, L>R Lumbar MRI shows L4-L5 disc extrusion, possible mass effect on L5 nerve root Thoracic MRI negative for demyelinating disease Orthospine saw pt and recommending conservative tx with epidural injections for relief (as OPT); likely laminectomy with discectomy recommended Pain management consulted and recommending: gabapentin bid, tizanidine PRN, [place] PRN, steroid taper at dc PT/OT recommending dc to home Script provided for walker due to weakness and concern for falling at home - per PT note patient had unsteady gait, uses railing for support, has tremors/shakes while ambulating Optic neuritis Possible MS Neuropathy, tremors, generalized weakness; worse in lower extremities Following with neurology OPT with [facility] Dr Mireles Reports autoimmune workup outpatient was negative, vitamin B12 injections every 3 months MRI/cervical spine results: 1. No spinal cord abnormal signal areas. 2. Mild neck muscle spasm. 3. Cervical spine spondylodegenerative changes. 4. Multilevel cervical disc bulge and osteophyte complexes are more evident at C5-C6 and C6- C7. Brain MRI: 1. Faint tiny bilateral smita-trigonal high T2/FLAIR signal foci, single focus on each side, with no enhancement or diffusion restriction. could be non-specific, yet Multiple sclerosis could not be ruled out, CSF analysis along with follow-up are needed. 2. Newly seen mild left maxillary and ethmoidal sinusitis. LP completed 04/11 with CSF lactate, LDH, lyme DNA PCR, MS panel pending Neurology consulted 04/12 and case discussed with Dr Diez on the phone and via TT: recommending IV Solu-Medrol 1g daily x3 days to treat optic neuritis then obtain MRI w/wo contrast brain/orbits to look for optic nerve enhancement, vitamin D level and supplementation if indicated, [employer] form and Ziopatch at sd for syncope, outpatient follow up with [facility] Neurologist Hx ADHD/anxiety: Continue home Zoloft Adderall is non-formulary Hx KEYSHA on CPAP: CPAP at bedtime Sinusitis Identified on brain MRI, likely chronic No s/s DVT Prophylaxis: SCDs Code Status: FULL CODE Patient seen in collaboration with Dr Thompson. Please see addendum. I spent a total of 60 minutes coordinating, documenting and providing care for this patient excluding time spent in the performance of separately billed services or time spent by another provider/QHP. Admission and Anticipated Discharge Date Admission Date: April 07, 2025 Supervising Physician Co-Signing Physician Notes 04/12/2025 The patient was seen and examined in medical floor in presence of the mother She was admitted with suspected optic neuritis and paraparesis involving more on the left than the right She was seen by orthospine and also pain therapy consultation for ongoing pain involving the lumbar region She has been feeling a lot better today and was willing to be discharged On examination Lying in bed without acute distress Remains hemodynamically stable Chest was clear to auscultate bilaterally HeartS1, S2 regular and no murmur Abdomenbenign Extremitiesno edema CNSalert, awake and oriented x 3. Has weakness involving the legs left more than the right and the overall weakness has been improving. Denies any visual symptoms Her labs, medications and imaging studies reviewed MRI showed faint tiny bilateral smita- trigonal high T2/FLAIR not specific for multiple sclerosis and CSF analysis was requested Status post lumbar puncture and the tests are still pending Cervical spine MRI showed multilevel cervical disc bulge and osteophyte complexes more evident at C5-C6 and C6 - C7-appreciate orthospine evaluation Given the history of optic neuritis as suggested by rip/mould operator and neuroevaluation was undertaken Appreciate neurology input and recommendation Agree with assessment and plan as outlined above by ANGELIQUE Diaz and take the full responsibility of care in the hospital Dr Huang Thompson Subjective Patient seen sitting up in bed Notes weakness and pain is the same Reports left foot drop today Persistent radiculopathy and intermittent pleuritic chest pain Review of Systems Review of Systems: All systems reviewed & are unremarkable except as noted in Subjective Physical Exam Physical Exam: General/Psych: WD/WN, sitting up in bed, NAD, conversing easily Head: normocephalic, atraumatic Eyes: normal inspection, PERRL, conjunctivae pink ENT: external ear and nose normal, oropharynx normal Neck: normal visual inspection, trachea midline Respiratory: normal respiratory effort, lungs clear to auscultation, no wheeze/rales/rhonchi, no accessory muscle use Cardiovascular: regular rate and rhythm, no murmur/rub/gallop, no JVD Extremities: no cyanosis or clubbing, normal peripheral pulses, no BLE edema Abdomen/GI: normal bowel sounds, soft, nontender Neurologic/MSK: A+Ox3, motor strength 4/5 in BLE, moves all extremities, sensation intact BLE Skin: no rashes, normal color, warm and dry Results & Data Results & Data Vital Signs (Past 12 Hours) Vital Signs Temp Pulse Resp BP Pulse Ox O2 Del Method 04/12/25 14:46 36.7 C 69 16 118/70 96 Room Air 04/12/25 07:06 36.7 C 68 16 112/71 98 Room Air Medications Administered Current Inpatient Medications Acetaminophen (Acetaminophen 325 Mg Tab) 650 mg PO Q4H PRN PRN Reason: pain/fever Stop: 05/07/25 15:26 Last Admin: 04/11/25 23:54 Dose: 650 mg Hydrocodone Bitart/Acetaminophen (Hydrocodone/Acetamophen 5/325mg Tab) 1 tab PO Q4H PRN PRN Reason: Pain not relieved by tylenol Stop: 04/24/25 16:09 Last Admin: 04/12/25 11:51 Dose: 1 tab Docusate Sodium (Docusate Sodium 100 Mg Cap) 100 mg PO BID [facility] Stop: 05/07/25 20:59 Last Admin: 04/12/25 08:18 Dose: 100 mg Gabapentin (Gabapentin 300 Mg Cap) 300 mg PO BID [facility] Stop: 05/10/25 08:59 Last Admin: 04/12/25 08:18 Dose: 300 mg Hydromorphone HCl (Hydromorphone Inj 0.5 Mg/0.5 Ml Syr) 0.5 mg IV Q6H PRN PRN Reason: Severe Pain (Scale 7, 8, 9,10) Stop: 04/25/25 15:29 Last Admin: 04/12/25 14:00 Dose: 0.5 mg Dexamethasone 8 mg/ Syringe 2 mls @ 1 mls/min IV Q8H [facility] Stop: 05/07/25 15:29 Last Admin: 04/12/25 08:18 Dose: 1 mls/min Lorazepam (Lorazepam 0.5 Mg Tab) 0.5 mg PO Q4H PRN PRN Reason: Anxiety Stop: 05/07/25 13:24 Last Admin: 04/12/25 08:27 Dose: 0.5 mg Pantoprazole Sodium (Pantoprazole 40 Mg Tab) [facility] [place] Stop: 05/08/25 08:59 Last Admin: 04/12/25 08:18 Dose: 40 mg Sertraline HCl (Sertraline Hcl 100 Mg Tablet) [facility] [place] Stop: 05/08/25 08:59 Last Admin: 04/12/25 08:18 Dose: 100 mg Sertraline HCl (Sertraline Hcl 50 Mg Tablet) 25 [facility] [place] Stop: 05/08/25 08:59 Last Admin: 04/12/25 08:18 Dose: 25 mg Tizanidine HCl (Tizanidine Hcl 4 Mg Tablet) 4 mg PO TID PRN PRN Reason: muscle spasms Stop: 05/07/25 20:59 Last Admin: 04/12/25 08:18 Dose: 4 mg
--- NOTE | 2025-04-12 15:56 | Communication Note ---
Date of Service: April 12, 2025 Please note under neurology consult & plan: Recommend obtain serum vitamin D level and supplement as needed I have discussed this directly with primary/hospitalist team
[2025-04-12] MEDS: methylPREDNISolone 1,000 MG in NSS 250 ML IV STA (17:14)
[2025-04-13 06:13] LABS: Hematocrit (blood only) 39.7 % (37.0-47.0); Hemoglobin 13.5 g/dl (12.0-16.0); Mean Corpuscular Hemoglobin 30.8 pg (25.0-34.0); Mean Corpuscular Volume 90.6 fL (80.0-100.0); Platelet Count 281 K/uL (130-400); RDW Standard Deviation 40.3 fL (36.4-46.3); Red Blood Count 4.38 M/uL (4.20-5.40); White Blood Count 20.81 K/ul (4.8-10.8)
[2025-04-13 06:31] LABS: Anion Gap 9.0 (3-11); Blood Urea Nitrogen 16.0 mg/dl (6-23); Calcium 8.5 mg/dl (8.6-10.3); Carbon Dioxide 25.0 mmol/L (21-32); Chloride 104.0 mmol/L (98-107); Creatinine Clr Calc Pharmacy 132.7 ml/min; Glucose 133.0 mg/dl (70-99(Fasting)); Potassium 4.0 mmol/L (3.5-5.1); Sodium 138.0 mmol/L (136-145)
--- NOTE | 2025-04-13 08:32 | Hospitalist Progress Note ---
Date of Service April 13, 2025 Assessment & Plan (1) Lumbar radiculopathy: (2) KEYSHA on CPAP: (3) ADHD: (4) Anxiety: (5) Hypertension: Plan 39-year-old female with PMH significant for anxiety, ADHD, KEYSHA on CPAP, and history of lumbar surgery who presents to the ED on 04/07/2025 with complaints of worsening bilateral lower extremity weakness left greater than right and is admitted for lumbar disc herniation and MS work up. Lumbar radiculopathy L4-L5 disc extrusion Hx L5-S1 decompression and fusion Decreased sensation and strength in bilateral lower extremities L>R with radiculopathy Lumbar x-ray showed intact fusion hardware Lumbar MRI shows L4-L5 disc extrusion, possible mass effect on L5 nerve root Cervical spine MRI showed spondylodegenerative changes and multilevel disc bulging and osteophyte complexes at C5-C6 and C6-C7 Orthospine saw pt and recommends conservative treatment with epidural injections with pain management before considering laminectomy with discectomy Pain management saw pt and recommends gabapentin bid, tizanidine PRN, [place] PRN, steroid taper at dc; will consider epidural injection outpatient pending MS workup findings PT/OT saw pt and recommending dc to home Script provided for outpatient PT and walker due to weakness and concern for falling at home - per PT note patient had unsteady gait, uses railing for support, has tremors/shakes while ambulating Optic neuritis Reports recent diagnosis per Dag Coater at [facility] Notes she had lasik eye surgery 20 years ago with 20/20 vision after and then developed myopia over the last year or so requiring glasses again Neurology consulted 04/12 and recommending IV Solu-Medrol 1g daily x3 days to treat optic neuritis then obtain MRI w/wo contrast brain/orbits to look for optic nerve enhancement *Patient reporting slight improvement in clarity of vision today Possible MS Neuropathy, tremors, generalized weakness; worse in lower extremities; ongoing since 2019 per record review Has a sister with MS Reports autoimmune workup outpatient was negative Gets vitamin B12 injections every 3 months Follows with outpatient Neurology/Neuroimmunology at [facility] Dr Rozina Ruggiero Thoracic MRI negative for demyelinating disease Brain MRI: 1. Faint tiny bilateral smita-trigonal high T2/FLAIR signal foci, single focus on each side, with no enhancement or diffusion restriction. could be non-specific, yet Multiple sclerosis could not be ruled out, CSF analysis along with follow-up are needed. 2. Newly seen mild left maxillary and ethmoidal sinusitis. LP completed 04/11 with CSF lactate, LDH, lyme DNA PCR, MS panel pending (sent to [facility] and expected to result in about 7 days) Hx syncope Patient reports lifelong history of syncope where she gets dizzy, loses consciousness and collapses to the floor Notes that frequency of episodes have increased in the last few months Reports previous work up for POTS and multiple Holter monitors with no detected arrhythmias Neurology consulted 04/12 and recommending telemetry monitoring, Ziopatch at discharge, [employer] form *Telemetry on 04/13 revealed NSR and SB with PVCs a rates of 50-70s *[employer] form completed 04/13 Hx ADHD/anxiety Continue home Zoloft Adderall is non-formulary Hx KEYSHA CPAP at bedtime Sinusitis Identified on brain MRI, likely chronic No s/s of sinusitis DVT Prophylaxis: SCDs Code Status: FULL CODE Patient seen in collaboration with Dr Thompson. Please see addendum. I spent a total of 60 minutes coordinating, documenting and providing care for this patient excluding time spent in the performance of separately billed services or time spent by another provider/QHP. Admission and Anticipated Discharge Date Admission Date: April 07, 2025 Supervising Physician Co-Signing Physician Notes 04/12/2025 The patient was seen and examined in medical floor in presence of the mother She was admitted with suspected optic neuritis and paraparesis involving more on the left than the right She was seen by orthospine and also pain therapy consultation for ongoing pain involving the lumbar region She has been feeling a lot better today and was willing to be discharged On examination Lying in bed without acute distress Remains hemodynamically stable Chest was clear to auscultate bilaterally HeartS1, S2 regular and no murmur Abdomenbenign Extremitiesno edema CNSalert, awake and oriented x 3. Has weakness involving the legs left more than the right and the overall weakness has been improving. Denies any visual symptoms Her labs, medications and imaging studies reviewed MRI showed faint tiny bilateral smita- trigonal high T2/FLAIR not specific for multiple sclerosis and CSF analysis was requested Status post lumbar puncture and the tests are still pending Cervical spine MRI showed multilevel cervical disc bulge and osteophyte complexes more evident at C5-C6 and C6 - C7-appreciate orthospine evaluation Given the history of optic neuritis as suggested by spot facer and neuroevaluation was undertaken Appreciate neurology input and recommendation Agree with assessment and plan as outlined above by ANGELIQUE Diaz and take the full responsibility of care in the hospital Dr Huang Thompson 04/13/2025 The patient was seen and examined in medical telemetry unit. She has been feeling much better with her visual symptoms and also pain in weakness involving the extremities especially the lower left after getting high-dose steroid injection. Denies any other significant symptoms. She remains hemodynamically stable. Her medications and labs were reviewed She has been getting high-dose steroid for suspected optic neuritis secondary to MS Agree with assessment plan as outlined above by Anne MERINO and take the full responsibility with care in the hospital Dr Huang Thompson Subjective Patient seen sitting up in bed Reports LE weakness and L foot drop is the same Notes slight improvement in vision and notes clarity where she has not needed her glasses Also notes slight improvement in radiculopathy Denies chest pain, SOB, abdominal pain, N/V/D Review of Systems Review of Systems: All systems reviewed & are unremarkable except as noted in Subjective Physical Exam Physical Exam: General/Psych: WD/WN, sitting up in bed, NAD, conversing easily Head: normocephalic, atraumatic Eyes: normal inspection, PERRL, conjunctivae pink ENT: external ear and nose normal, oropharynx normal Neck: normal visual inspection, trachea midline Respiratory: normal respiratory effort, lungs clear to auscultation, no wheeze/rales/rhonchi, no accessory muscle use Cardiovascular: regular rate and rhythm, no murmur/rub/gallop, no JVD Extremities: no cyanosis or clubbing, normal peripheral pulses, no BLE edema Abdomen/GI: normal bowel sounds, soft, nontender Neurologic/MSK: A+Ox3, motor strength 3/5 in BLE, decreased movement LLE>RLE, sensation intact BLE, L footdrop noted Skin: no rashes, normal color, warm and dry Results & Data Results & Data Vital Signs (Past 12 Hours) Vital Signs Temp Pulse Pulse Resp BP Pulse Ox O2 Del Method 04/13/25 07:00 36.7 C 68 18 120/79 98 Room Air 04/13/25 04:15 36.5 C 58 L 16 117/75 95 Room Air 04/13/25 00:09 36.7 C 56 L 20 106/66 95 Room Air 04/12/25 21:47 77 Laboratory Results Short CBC 04/13/25 Range/Units 05:47 WBC 20.81 H (4.8-10.8) K/ul Hgb 13.5 (12.0-16.0) g/dl Hct 39.7 (37.0-47.0) % Plt Count 281 (130-400) K/uL BMP 04/13/25 05:47 Sodium 138 Potassium 4.0 Chloride 104 Carbon Dioxide 25 BUN 16 Creatinine 0.67 Glucose 133 H Calcium 8.5 L I have independently reviewed and interpreted patient's labs including CBC and BMP Medications Administered Current Inpatient Medications Acetaminophen (Acetaminophen 325 Mg Tab) 650 mg PO Q4H PRN PRN Reason: pain/fever Stop: 05/07/25 15:26 Last Admin: 04/11/25 23:54 Dose: 650 mg Hydrocodone Bitart/Acetaminophen (Hydrocodone/Acetamophen 5/325mg Tab) 1 tab PO Q4H PRN PRN Reason: Pain not relieved by tylenol Stop: 04/24/25 16:09 Last Admin: 04/12/25 20:25 Dose: 1 tab Docusate Sodium (Docusate Sodium 100 Mg Cap) 100 mg PO BID [facility] Stop: 05/07/25 20:59 Last Admin: 04/12/25 20:25 Dose: 100 mg Gabapentin (Gabapentin 300 Mg Cap) 300 mg PO BID [facility] Stop: 05/10/25 08:59 Last Admin: 04/12/25 20:25 Dose: 300 mg Hydromorphone HCl (Hydromorphone Inj 0.5 Mg/0.5 Ml Syr) 0.5 mg IV Q6H PRN PRN Reason: Severe Pain (Scale 7, 8, 9,10) Stop: 04/25/25 15:29 Last Admin: 04/12/25 14:00 Dose: 0.5 mg Methylprednisolone 1,000 mg/ (Sodium Chloride) 266 mls @ 266 mls/hr IV DAILY@1200 [facility] Stop: 04/13/25 21:00 Methylprednisolone 1,000 mg/ (Sodium Chloride) 266 mls @ 266 mls/hr IV DAILY@0800 [facility] Stop: 04/14/25 21:00 Lorazepam (Lorazepam 0.5 Mg Tab) 0.5 mg PO Q4H PRN PRN Reason: Anxiety Stop: 05/07/25 13:24 Last Admin: 04/12/25 20:25 Dose: 0.5 mg Pantoprazole Sodium (Pantoprazole 40 Mg Tab) [address] [facility] Stop: 05/08/25 08:59 Last Admin: 04/12/25 08:18 Dose: 40 mg Sertraline HCl (Sertraline Hcl 100 Mg Tablet) [address] [facility] Stop: 05/08/25 08:59 Last Admin: 04/12/25 08:18 Dose: 100 mg Sertraline HCl (Sertraline Hcl 50 Mg Tablet) [address] [facility] Stop: 05/08/25 08:59 Last Admin: 04/12/25 08:18 Dose: 25 mg Tizanidine HCl (Tizanidine Hcl 4 Mg Tablet) 4 mg PO TID PRN PRN Reason: muscle spasms Stop: 05/07/25 20:59 Last Admin: 04/12/25 20:25 Dose: 4 mg
[2025-04-13] MEDS: methylPREDNISolone 1,000 MG in NSS 250 ML IV SCH (11:44)
[2025-04-13 19:48] VITALS: RESP 18
--- NOTE | 2025-04-14 07:11 | Hospitalist Progress Note ---
Date of Service April 14, 2025 Assessment & Plan (1) Lumbar radiculopathy: (2) KEYSHA on CPAP: (3) ADHD: (4) Anxiety: (5) Hypertension: Plan 39-year-old female with PMH significant for anxiety, ADHD, KEYSHA on CPAP, and history of lumbar surgery who presents to the ED on 04/07/2025 with complaints of worsening bilateral lower extremity weakness left greater than right and is admitted for lumbar disc herniation and MS work up. Lumbar radiculopathy L4-L5 disc extrusion Hx L5-S1 decompression and fusion Decreased sensation and strength in bilateral lower extremities L>R with radiculopathy Lumbar x-ray showed intact fusion hardware Lumbar MRI shows L4-L5 disc extrusion, possible mass effect on L5 nerve root Cervical spine MRI showed spondylodegenerative changes and multilevel disc bulging and osteophyte complexes at C5-C6 and C6-C7 Orthospine saw pt and recommends conservative treatment with epidural injections with pain management before considering laminectomy with discectomy Pain management saw pt and recommends gabapentin bid, tizanidine PRN, [place] PRN, steroid taper at dc; will consider epidural injection outpatient pending MS workup findings PT/OT saw pt and recommending dc to home Script provided for outpatient PT and walker due to weakness and concern for falling at home - per PT note patient had unsteady gait, uses railing for support, has tremors/shakes while ambulating Optic neuritis Reports recent diagnosis per Cold Roll Operator at [facility] Notes she had lasik eye surgery 20 years ago with 20/20 vision after and then developed myopia over the last year or so requiring glasses again Neurology consulted 04/12 and recommending IV Solu-Medrol 1g daily x3 days to treat optic neuritis then obtain MRI w/wo contrast brain/orbits to look for optic nerve enhancement *Patient reporting slight improvement in clarity of vision today Possible MS Neuropathy, tremors, generalized weakness; worse in lower extremities; ongoing since 2019 per record review Has a sister with MS Reports autoimmune workup outpatient was negative Gets vitamin B12 injections every 3 months Follows with outpatient Neurology/Neuroimmunology at [facility] Dr Rozina Ruggiero Thoracic MRI negative for demyelinating disease Brain MRI: 1. Faint tiny bilateral smita-trigonal high T2/FLAIR signal foci, single focus on each side, with no enhancement or diffusion restriction. could be non-specific, yet Multiple sclerosis could not be ruled out, CSF analysis along with follow-up are needed. 2. Newly seen mild left maxillary and ethmoidal sinusitis. LP completed 04/11 with CSF lactate, LDH, lyme DNA PCR, MS panel pending (sent to [facility] and expected to result in about 7 days) Hx syncope Patient reports lifelong history of syncope where she gets dizzy, loses consciousness and collapses to the floor Notes that frequency of episodes have increased in the last few months Reports previous work up for POTS and multiple Holter monitors with no detected arrhythmias Neurology consulted 04/12 and recommending telemetry monitoring, Ziopatch at discharge, [employer] form *Telemetry on 04/13 revealed NSR and SB with PVCs a rates of 50-70s *[employer] form completed 04/13 Hx ADHD/anxiety Continue home Zoloft Adderall is non-formulary Hx KEYSHA CPAP at bedtime Sinusitis Identified on brain MRI, likely chronic No s/s of sinusitis DVT Prophylaxis: SCDs Code Status: FULL CODE Patient seen in collaboration with Dr Thompson. Please see addendum. I spent a total of 60 minutes coordinating, documenting and providing care for this patient excluding time spent in the performance of separately billed services or time spent by another provider/QHP. Admission and Anticipated Discharge Date Admission Date: April 07, 2025 Results & Data Results & Data Vital Signs (Past 12 Hours) Vital Signs Temp Pulse Pulse Resp BP Pulse Ox O2 Del Method 04/14/25 03:15 50 L 18 122/81 97 Room Air 04/13/25 23:45 36.6 C 67 18 117/72 95 Room Air 04/13/25 22:04 75 04/13/25 19:47 36.8 C 69 18 125/77 96 Room Air
[2025-04-14 07:48] LABS: Hematocrit (blood only) 41.9 % (37.0-47.0); Hemoglobin 14.1 g/dl (12.0-16.0); Mean Corpuscular Hemoglobin 30.7 pg (25.0-34.0); Mean Corpuscular Volume 91.1 fL (80.0-100.0); Platelet Count 302 K/uL (130-400); RDW Standard Deviation 41.0 fL (36.4-46.3); Red Blood Count 4.60 M/uL (4.20-5.40); White Blood Count 26.74 K/ul (4.8-10.8)
[2025-04-14 08:08] LABS: Anion Gap 5.0 (3-11); Blood Urea Nitrogen 20.0 mg/dl (6-23); Calcium 8.8 mg/dl (8.6-10.3); Carbon Dioxide 32.0 mmol/L (21-32); Chloride 103.0 mmol/L (98-107); Creatinine Clr Calc Pharmacy 125.2 ml/min; Glucose 100.0 mg/dl (70-99(Fasting)); Potassium 4.4 mmol/L (3.5-5.1); Sodium 140.0 mmol/L (136-145)
[2025-04-14] MEDS: methylPREDNISolone 1,000 MG in NSS 250 ML IV SCH (09:29)
[2025-04-14 11:20] VITALS: BP 102/65; TEMP 97.9; O2SAT 96
[2025-04-14] MEDS: GADOBUTROL 65ML VIAL IV ONE (13:07)
--- NOTE | 2025-04-14 13:35 | Magnetic Resonance Report ---
MRI OF THE BRAIN COMBO CLINICAL HISTORY: Optic neuritis. COMPARISON STUDY: MRI of the brain dated 04/08/2025. TECHNIQUE: MRI of the brain was performed utilizing various T1 and T2-weighted sequences in the axial , sagittal, and coronal planes. Contrast-enhanced sequences were acquired following the administratio n of 7 cc of Gadavist. The examination is performed using the multiple sclerosis protocol. FINDINGS: Brain parenchyma: There are 2 foci of T2 signal abnormality again seen within the posterior periventr icular white matter. This is of indeterminate significance as an isolated finding, is unchanged from 04/08/2025. There is no associated abnormal postcontrast enhancement. The optic nerves are normal as v isualized. There is no hemorrhage or mass effect. There is no restricted diffusion to suggest acute i schemia. No enhancing mass lesion is identified on the postcontrast images. Gonzales-white matter differe ntiation is preserved. No extra-axial fluid collection is seen. The cerebellar tonsils are normal in configuration. Ventricles, sulci, and cisterns: Normal in configuration. Pituitary and sella: Unremarkable. Intracranial vasculature: Normal flow voids are maintained at the skull base. Orbits: The bony orbits are grossly intact. Orbital contents are normal in appearance. Sinuses and mastoids: There is trace mucosal thickening within the maxillary and ethmoid sinuses. The mastoid air cells are well pneumatized. Calvarium: Unremarkable. Cervical cord: Partially visualized cervical spinal cord is normal in morphology and signal intensity . IMPRESSION: 1. No acute intracranial abnormality. 2. There are 2 subcentimeter foci of T2 signal abnormality again seen in the periventricular white ma tter. This is unchanged from 04/08/2025 and of indeterminate (if any) clinical significance. There is no associated abnormal postcontrast enhancement. Clinical correlation will be required. 3. The optic nerves are normal as visualized. ACT 112: Negative or not required by law. Electronically signed by: Johnathan Kaur M.D. 04/14/2025 1:34 PM
--- NOTE | 2025-04-14 13:51 | Magnetic Resonance Report ---
MR orbit wo/w con CLINICAL HISTORY: evaluate optic neuritis COMPARISON STUDY: 04/08/2025 FINDINGS: There is motion artifact. There is possible increased T2 signal at the optic nerves bilater ally versus motion artifact. No enlargement of the optic nerves. No enhancement seen at the optic ner ves. No intraorbital mass or abscess. Globes are grossly unremarkable. IMPRESSION: Possible increased T2 signal at the optic nerves versus motion artifact. There is no enh ancement of the optic nerves. ACT 112: Negative or not required by law. Electronically signed by: Abran Castellanos M.D. 04/14/2025 1:50 PM
[2025-04-14 14:50] VITALS: PULSE 75
--- NOTE | 2025-04-14 16:36 | Discharge Summary ---
Date of Service April 14, 2025 Admission HPI Per Admitting Provider The patient is a 39-year-old female with a past medical history of HTN, anxiety, GERD, L-spine surgery- 08/27/2021 the patient underwent lumbar decompression with bilateral medial fasciectomy's and foraminotomies L5-S1 as well as posterior spinal fusion L5-S1 and placement of posterior instrumentation with interbody fusion of L5-S1 with placement of titanium cage secondary to lumbar disc herniation and lumbar radiculopathy who presents to the ED on 04/07/2025 with complaints of lower back pain and leg weakness. Reported over the past 2-3 months progressive lower back pain radiating down both legs. Also reported leg numbness/color changing to lower extremities and numbness in the feet. Patient has also complained of the inability to know when she needs to urinate and having to set an alarm every 2 hours to urinate without incontinence. Patient also reports ongoing workup for possible MS. Continued issues with bilateral lower extremity weakness. Also reports some issues with vision in the left eye thought to be optic neuritis. Reports bilateral lower extremity neuropathy that has worsened. Also reports leg cramping and tremors. Denies any chest pain or shortness of breath. Denies any nausea/vomiting/diarrhea/abdominal pain. Denies any fever/chills. On arrival to the ED, labs fairly unremarkable, glucose mildly low at 56, urinalysis negative Lumbar x-ray negative Lumbar spine MRI showed: 1. Expected findings following L5-S1 decompression and fusion. 2. Moderate-sized central/left paracentral disc extrusion with inferior subligamentous migration at L4-L5 which has developed since previous MRI. This results in mild central canal and moderate left lateral recess narrowing with possible mass effect upon the descending left L5 nerve root. 3. Otherwise, mild degenerative disc disease within the lumbar spine. The patient will be admitted for further management of lower back pain and disc extrusion Principal Diagnosis Optic Neuritis Discharge Exam Neuro: AAOx4, PERRLA, no aphagia, memory changes, CNII-XII grossly intact HEENT: head normocephalic, moist mucus membranes CV: S1/S2, (-) M/G/R, (-) edema, cap refill < 3 seconds Resp: Lungs CTA in all wylie. On RA GI: Abdomen S/NT/ND, Ax4 bowel sounds, (-) CVA tenderness Musculoskeletal: 5 B/L UE strength, 5/5 B/L LE strength. No gait disturbance Skin: (-) rashes , (-) erythema. Psych: euthymic mood Discharge Data Allergies Allergy/AdvReac Type Severity Reaction Status Date / Time bupropion [From Wellbutrin] Allergy Severe Stroke Unverified 04/07/25 12:33 like symptoms bee venom protein (honey bee) Allergy Anaphylaxis Verified 04/07/25 12:33 latex Allergy Hives Verified 04/07/25 12:33 Consultations 04/07/25 12:05 ED Decision to Admit Stat 04/07/25 15:27 Consult Orthopedic Spine Surgery Routine 04/08/25 08:47 Consult Pain Management Routine 04/12/25 10:45 Consult Neurology Routine Ordered Studies 04/07/25: Lumbar Spine MRI: FINDINGS: For purposes of numbering on this exam, the L5-S1 disc space is assigned to axial image 15 of 16. There are no lumbar spine fractures. No marrow edema or marrow placement is present. There are postoperative findings consistent with L5-S1 decompression and fusion with interbody spacer placement. The conus termi nates at the lower L1 level. Paravertebral soft tissues are unremarkable. L1-2: The central canal and neural foramen are patent. L2-3: There is mild disc space narrowing with minimal disc bulge. The findings have slightly progressed since MRI of August 26, 2021. Central canal neural foramen are patent L3-4: A small annular tear at tiny central disc protrusion is noted. The central canal and neural foramen are patent. L4-5: A moderate sized central/left paracentral disc extrusion with inferior subligamentous migration is developed since MRI of August 26, 2021. There is mild narrowing of the central canal and moderate narrowing of the left lateral recess with possible mass effect upon the descending left L5 nerve root. There is no neural foraminal stenosis. L5-S1: Expected postoperative findings are noted. There is no recurrent central canal or neural foraminal stenosis IMPRESSION: 1. Expected findings following L5-S1 decompression and fusion. 2. Moderate-sized central/left paracentral disc extrusion with inferior subligamentous migration at L4-L5 which has developed since previous MRI. This results in mild central canal and moderate left lateral recess narrowing with possible mass effect upon the descending left L5 nerve root. 3. Otherwise, mild degenerative disc disease within the lumbar spine. 04/07/25: Lumbar Spine X-ray: FINDINGS: 5 views of the lumbar spine are correlated with abdominal CT dated 10/24/2023 and MRI of lumbar spine dated 04/07/2025. The skeletal structures are well mineralized. There is no radiographic evidence of fracture or malalignment. Vertebral body height and alignment are maintained. There is minimal dextrocurvature centered at L3. There has been discectomy at L5-S1 with laminectomy and posterior fusion at this level. Interpedicular screws are in place. The orthopedic hardware appears intact. The transverse processes are grossly intact. There is no radiographic evidence of spondylolysis. The remaining disc spaces are maintained. The visualized bony pelvis appears intact. Mild sclerotic change is noted in the sacroiliac joints. There is a nonobstructed abdominal bowel gas pattern. IMPRESSION: 1. No acute bony abnormality is seen involving the lumbar spine. 2. Postsurgical changes above. 04/07/25: Ankle Branchial Index: FINDINGS: Ankle brachial indices were assessed and ultrasound. Right brachial pressure measures 130 and left brachial pressure measured 147. Pressures in the right posterior tibial artery measured 144 for an JORGE of 0.98 and pressures in the right dorsalis pedis measure 131 for an JORGE 0.89. Pressures in the left posterior tibial artery measure 143 for an JORGE of 0.97 impression exam the left dorsalis pedis measure 111 for an JORGE of 0.76. 04/07/25: Thoracic Spine MRI: FINDINGS: Vertebrae: There are 12 thoracic type vertebral bodies with a normal thoracic kyphosis. There is normal vertebral body height and alignment. The bone marrow signal is normal. No acute fracture. Discs/spinal canal/neural foramina: No acute findings. No significant disc disease. No spinal canal stenosis. Spinal cord: Unremarkable. Normal signal. No abnormal enhancement. Soft tissues: Unremarkable. IMPRESSION: Negative MRI of the thoracic spine. No evidence of demyelinating disease. 04/07/25: Lumbar Spine X-ray: Findings: There is scoliosis. No fracture is identified. There is an anterior and posterior fusion of L5 and S1 with posterior fixation rods and pedicle screws and prosthetic disc placement. There is no definite sign of instrumentation failure. There is disc space narrowing from L2-3 through L4-5. No focal osseous lesion is seen. There is constipation. Impression: 1. L5-S1 fusion 2. Degenerative disc disease from L2-3 through L4-5 3. Scoliosis 04/08/25: Brain MRI FINDINGS: Brain Parenchyma: Faint tiny bilateral smita-trigonal high T2/FLAIR signal foci, single focus on each side, with no enhancement or diffusion restriction. No evidence of acute infarction or hemorrhage. Gonzales-white matter differentiation is preserved. No abnormal signal intensity lesions were identified. Post-Contrast Findings: No abnormal enhancement of the brain parenchyma or meninges. Ventricles and Sulci: The ventricular system is within normal limits without evidence of hydrocephalus. Sulci and cisternal spaces are age-appropriate. Brainstem and Cerebellum: Normal appearance of the brainstem and cerebellum without focal lesions or abnormal enhancement. Vessels: Intracranial vessels appear normal without evidence of vascular malformations or aneurysms. Skull and Calvarium: No evidence of skull vault lesions or abnormal marrow signal within the calvarium. Deviated bony nasal septum to the right side Newly seen mild left maxillary and ethmoidal sinusitis IMPRESSION: 1. Faint tiny bilateral smita-trigonal high T2/FLAIR signal foci, single focus on each side, with no enhancement or diffusion restriction. could be non-specific, yet Multiple sclerosis could not be ruled out, CSF analysis along with follow-up are needed. 2. Newly seen mild left maxillary and ethmoidal sinusitis. 04/08/25: Cervical Spine MRI: Vertebral Alignment: No evidence of fracture or subluxation. First-degree spondylolisthesis of C6 over C7. Mildly straightened cervical curve Mild spondylotic degenerative changes manifested by marginal anterior osteophytic lipping of C5-6 vertebral endplates. Vertebral Bodies and Intervertebral Discs: Normal vertebral body height and alignment. Intervertebral discs demonstrate normal hydration. Xaalh-as-ydubu analysis: C2-C3: There is no significant disc pathology. Normal morphology of the ligamentum flavum. No arthropathy of the uncovertebral and zygapophyseal joints. No significant spinal canal stenosis C3-C4: There is no significant disc pathology. Normal morphology of the ligamentum flavum. No arthropathy of the uncovertebral and zygapophyseal joints. No significant spinal canal stenosis C4-C5: There is a 1.2 mm mild bi-posterolateral disc bulge/osteophyte complex causing mild neural foraminal stenosis with no spinal canal stenosis C5-C6: There is a diffuse disc bulge with osteophytic complex measuring 5.2 mm with inferior migration indenting the subarachnoid space and slightly encroaching on both exit neural foramina, causing bilateral moderate neural framinal stenosis with mild spinal canal stenosis. C6-C7: There is a diffuse, broad-based disc bulge measuring 4 mm with superior migration indenting the subarachnoid space, causing bilateral mild neural foraminal stenosis. Normal morphology of the ligamentum flavum. No arthropathy of the uncovertebral and zygapophyseal joints. No significant spinal canal stenosis C7-T1: There is no significant disc pathology. Normal morphology of the ligamentum flavum. No arthropathy of the uncovertebral and zygapophyseal joints. No significant spinal canal stenosis Spinal Cord and Nerve Roots: The spinal cord demonstrates normal signal intensity and caliber. No evidence of cord compression or intradural pathology. Nerve roots appear unremarkable bilaterally. Soft Tissues: Paraspinal soft tissues appear normal without evidence of abnormal signal intensity or mass lesions. Vascular Structures: Normal appearance of the visualized vascular structures. No evidence of aneurysm, dissection, or significant atherosclerosis. Normal enhancement post-contrast. IMPRESSION: 1. No spinal cord abnormal signal areas. 2. Mild neck muscle spasm. 04/11/25: CXR: FINDINGS: An AP, portable, upright chest radiograph is compared to chest x-ray and chest CT dated 09/07/2021. The cardiomediastinal silhouette is unremarkable. The lungs and pleural spaces are clear. No pneumothorax is seen. The bony thorax is grossly intact. IMPRESSION: No active disease in the chest. 04/14/25: Brain MRI: FINDINGS: Brain parenchyma: There are 2 foci of T2 signal abnormality again seen within the posterior periventricular white matter. This is of indeterminate significance as an isolated finding, is unchanged from 04/08/2025. There is no associated abnormal postcontrast enhancement. The optic nerves are normal as visualized. There is no hemorrhage or mass effect. There is no restricted diffusion to suggest acute ischemia. No enhancing mass lesion is identified on the postcontrast images. Gonzales-white matter differentiation is preserved. No extra-axial fluid collection is seen. The cerebellar tonsils are normal in configuration. Ventricles, sulci, and cisterns: Normal in configuration. Pituitary and sella: Unremarkable. Intracranial vasculature: Normal flow voids are maintained at the skull base. Orbits: The bony orbits are grossly intact. Orbital contents are normal in appearance. Sinuses and mastoids: There is trace mucosal thickening within the maxillary and ethmoid sinuses. The mastoid air cells are well pneumatized. Calvarium: Unremarkable. Cervical cord: Partially visualized cervical spinal cord is normal in morphology and signal intensity. IMPRESSION: 1. No acute intracranial abnormality. 2. There are 2 subcentimeter foci of T2 signal abnormality again seen in the periventricular white matter. This is unchanged from 04/08/2025 and of indeterminate (if any) clinical significance. There is no associated abnormal postcontrast enhancement. Clinical correlation will be required. 3. The optic nerves are normal as visualized. Hospital Course (1) Leg weakness, bilateral: (2) Abnormal magnetic resonance imaging of lumbar spine: (3) Lumbar radiculopathy: Plan Ms. Southfield presented to the hospital for worsening leg weakness and underwent an MRI of her lumbar spine which showed disc herniation at L4-L5 that is suspected to be causing her radiculopathy. She also does have a family history of MS and has been undergoing work up at [facility]. Orthopedic Spine Surgery was consulted who recommended an epidural injection before considering surgery if possible. Dr Fitzgerald recommended MRI of the brain for complete MS workup which could not rule out MS so we obtained a lumbar puncture while she was inpatient. The results from the LP are pending. You worked with physical therapy who felt you were safe to return home. You were discharged with a script for Physical Therapy outpatient. You also saw Pain Management while in the hospital who provided medication recommendations as detailed below will follow up with you outpatient for epidural injection. Neurlogy saw you while you were here and you underwent additional treatment for your optic neuritis with high dose steroids and she is being sent home on an additional steroid pack. Neurology was consulted and disclosed that she could possibly have optic neuritis. While inpatient she received low dose steroids and believes her vision has improved. She has undergone MRI brain and cervical spine as well as a lumbar puncture due to reported recommendations of her outpatient neurology team for which she states she has been recommended to see rheumatology and cardiology as she has had episodes of complete loss of consciousness. She was evaluated by pain management while here and was started on gabapentin and tizanidine and recommended to follow up at discharge. It is also recommended that she have a ZioPatch at discharge to monitor for arrhythmia. She has been deemed that she should not drive until her ziopatch and symptoms are stabilized. Neurology recommended continued work up and steroid for treatment for possible MS and optic neuritis. Today, she had a repeat MRI of her brain and orbits after completing three days of high dose steroids. We spoke with physical therapy and they are comfortable with her returning home and continuing her outpatient work up for her ailments. Total Time Total Time Spent Total Time Spent (In Minutes): I spent a total of 58 minutes coordinating, documenting, and providing care for this patient excluding time spent inthe performance of separately billed services or time spent by another provider/QHP. Discharge Plan Discharge Items Patient Disposition: Home - Self-Care Reason For Visit: B/L LEG NUMBNESS Discharge Diagnosis: Lumbar radiculopathy Condition on Discharge: Good Activity: Resume your previous activity Non-emergency contact: Primary Care Provider, Specialist and Pain Management Call non-emergency contact if: you have any medication questions, your symptoms worsen, your pain is concerning for you and you have a fever Follow-up/Referrals: Vance Fitzgerald DO [Surgeon] - (The office will call you with an appointment for next week. ) Luis Siu MD [Primary Care Provider] - (Date & Time 04/20/2025 3:00 PM Provider: Luis Siu MD [facility] [place] ) Lerner Laurence A, M.D. [Outside Practitioners] - (Date & Time 04/25/2025 1:00 PM Provider: Pauline Lerner MD [facility] ) Diet: Regular Addtl Attending Provider Instructions: You presented to the hospital for worsening leg weakness and underwent MRI of your lumbar spine which showed disc herniation at L4-L5 that is causing your radiculopathy. We consulted with Orthopedic Spine Surgery who recommended epidural injection before considering surgery if possible. Dr Fitzgerald recommended MRI of the brain for complete MS workup which could not rule out MS so we obtained a lumbar puncture while you were in the hospital. The results from your fluid around your spinal cord will take some time to result and will need to be followed up on outpatient. You worked with physical therapy who felt you were safe to return home. You were discharged with a script for Physical Therapy outpatient. You also saw Pain Management while in the hospital who provided medication recommendations as detailed below will follow up with you outpatient for epidural injection. Neurlogy saw you while you were here and you underwent additional treatment for your optic neuritis with steroids. MEDICATION CHANGES: Please take Gabapentin 300mg by mouth twice daily Please take Hydrocodone/acetaminophen 5mg/325mg by mouth every 4 hours as needed for pain not relieved by tylenol Please take Tizanidine 4mg by mouth three times daily as needed for muscle spasms Please take a prednisone taper pack as directed. SUMMARY OF TEST RESULTS: Lumbar spine x-ray showed hardware intact Lumbar spine MRI showed moderate sized disc extrusion at L4-L5 with narrowing and possible effect on L5 nerve Thoracic spine MRI negative Cervical spine MRI showed spondylodegenerative changes and multilevel disc bulging and osteophyte complexes at C5-C6 and C6-C7 Ankle brachial indices showed borderline and mild to moderate peripheral artery disease PENDING TEST RESULTS: CSF studies including lyme DNA, LDH, lactate, MS panel RECOMMENDATIONS FOR FOLLOW-UP: Please follow up with your PCP as scheduled on 04/20/2025 at 3:00pm. You will need a referral for Cardiology for a zio monitor. As discussed, you are transitioning your neurologic care here locally; your Neurology appointment is scheduled for ThursdayApril 25 @ [address] Sebastian at Neu[facility] Please follow up with Pain Management for outpatient epidural - they will call you but if you have any questions you can call their office at [phone] follow up with Dr Fitzgerald as scheduled on Thursday04/15/2025 [address] instructed to NOT drive until cleared from your Zio monitor. [employer] paperwork completed. OTHER INSTRUCTIONS: Seek medical attention if you have: * temperature above 101 * chest pain or trouble breathing * abdominal pain, nausea, vomiting * diarrhea, dark stools or bloody stools * any unanswered questions or concerns Call 911 if symptoms are severe. It has been a pleasure taking care of you. Please take care of yourself. If you have any questions regarding your recent hospitalization please contact [facility] and request [facility] Hospital[facility] @ [phone]. Pending Studies at Discharge: Yes Studies:: CSF lactate, LDH, lyme DNA PCR, multiple sclerosis panel Stand-Alone Forms: My [facility], Work/School Release, Smoking Cessation Medications and DC Order Prescriptions: New tizanidine 4 mg Tablet 4 mg PO TID PRN (Reason: muscle spasticity) Qty: 30 0RF Rx Instructions: Take one tablet as needed up to three times daily for muscle spasm pain hydrocodone-acetaminophen 5-325 mg Tablet 1 tab PO Q4H PRN (Reason: severe pain (scale score 7-10)) Qty: 14 0RF Rx Instructions: Take one tablet as needed for severe pain not relieved by tylenol gabapentin 300 mg Capsule 300 mg PO BID Qty: 60 0RF Rx Instructions: Take one capsule by mouth twice daily methylprednisolone [Medrol (Beto)] 4 mg tablets,dose pack 4 mg PO DIRECTED Qty: 21 0RF Rx Instructions: as directed Continued multivitamin Tablet 1 tab PO DAILY epinephrine 0.3 mg/0.3 mL Auto-Injector 0.3 mg IM Q4H PRN (Reason: Allergic Reaction) sertraline [Zoloft] 100 mg tablet 100 mg PO QAM Patient Comments: Take w/ 25mg to equal 125mg by mouth every morning omeprazole 20 mg capsule,delayed release(DR/EC) 20 mg PO QAM calcium citrate 250 mg calcium Tablet 500 mg PO QAM dextroamphetamine sulfate 15 mg capsule, extended release 30 mg PO QAM dextroamphetamine-amphetamine 10 mg tablet 10 mg PO QDL PRN (Reason: Workload) sertraline [Zoloft] 25 mg tablet 25 mg PO QAM Patient Comments: Take w/ 100mg to equal 125mg by mouth every morning Discharge Orders: Discharge Order (Routine); Ordered 04/14/25 Ordered By: Cherelle Beckham Admission Data Admit Date/Time: 04/07/25 13:25 Attending Provider: Jefferson Thompson Admit Provider: Ruperto Mars Primary Care Provider: Luis Siu Other Providers: Fab Morris; Ruperto Mars; Vance Fitzgerald; Tati Martinez; Saul Diez Other Interventions: Discharge Summary Assessment (RN) Last Done: 04/14/25 14:50 Supervising Physician Co-Signing Physician Notes 04/12/2025 The patient was seen and examined in medical floor in presence of the mother She was admitted with suspected optic neuritis and paraparesis involving more on the left than the right She was seen by orthospine and also pain therapy consultation for ongoing pain involving the lumbar region She has been feeling a lot better today and was willing to be discharged On examination Lying in bed without acute distress Remains hemodynamically stable Chest was clear to auscultate bilaterally HeartS1, S2 regular and no murmur Abdomenbenign Extremitiesno edema CNSalert, awake and oriented x 3. Has weakness involving the legs left more than the right and the overall weakness has been improving. Denies any visual symptoms Her labs, medications and imaging studies reviewed MRI showed faint tiny bilateral smita- trigonal high T2/FLAIR not specific for multiple sclerosis and CSF analysis was requested Status post lumbar puncture and the tests are still pending Cervical spine MRI showed multilevel cervical disc bulge and osteophyte complexes more evident at C5-C6 and C6 - C7-appreciate orthospine evaluation Given the history of optic neuritis as suggested by urban renewal manager and neuroevaluation was undertaken Appreciate neurology input and recommendation Agree with assessment and plan as outlined above by ANGELIQUE Diaz and take the full responsibility of care in the hospital Dr Huang Thompson 04/13/2025 The patient was seen and examined in medical telemetry unit. She has been feeling much better with her visual symptoms and also pain in weakness involving the extremities especially the lower left after getting high-dose steroid injection. Denies any other significant symptoms. She remains hemodynamically stable. Her medications and labs were reviewed She has been getting high-dose steroid for suspected optic neuritis secondary to MS Agree with assessment plan as outlined above by Anne MERINO and take the full responsibility with care in the hospital Dr Huang Thompson 04/14/2025 The patient was seen and examined in medical telemetry unit in presence of the She has been much better following the doses of intravenous Solu-Medrol Significant improvement of visual symptoms and also improvement of leg weakness and numbness Denies any other significant symptoms and will be discharged home today On examination Lying in bed without any acute distress and remains hemodynamically stable Unremarkable systemic examination Her medications reviewed and the imaging studies reviewed as well Appreciate neurology input and recommendation Agree with assessment and plan as outlined above by ANGELIQUE Braden and take the full responsibility of care in the hospital Dr Huang Thompson
== END 2025-04-14 15:42 | disposition home or self-care (01) | DRG 552 ==
LOC: ED 09:53 → SUATTDRO 13:25 → 3W 13:25 → 2W 04-12 18:23